=== PATIENT | female | born 1995 | race African-American/Black ===

== ENCOUNTER 2020-07-21 08:16 | Emergency (ER) | payer OTHER, SELFPAY ==
--- NOTE | ~2020-07-21 | US_ITS ---
US OB >= 14 weeks Fetus DATE: 07/21/2020 09:46 INDICATION: Vaginal bleeding TECHNIQUE: Real-time imaging via transabdominal approach, Doppler analysis COMPARISON: None FINDINGS: Live [place] intrauterine gestation, fetus in longitudinal lie, vertex presentation. heart rate 152 bpm. Biparietal diameter 4.12 cm, consistent with 18 weeks 3 days Head circumference 14.80 cm, consistent with 17 weeks 6 days Abdominal ileus 12.53 cm; 18 weeks 1 day Femur length 2.78 cm; 18 weeks 4 days Composite age by Hadlock parameters 18 weeks 2 days +/- 1 week 2 days, with EVELYN of 12/20/2020, compare d to 12/26/2020 by LMP. Estimated weight is 232.4 +/- 34.9 g Head circumference/abdominal circumference 1.18, within normal range of 1.08, 101.27 Anterior placenta. No retroplacental hemorrhage is noted. Subjectively normal amount of amniotic fluid. IMPRESSION: No significant abnormality noted Estimated gestational age: 18 weeks 2 days +/- 1 week 2 days; EVELYN: 12/20/2020 Reviewed, dictated and finalized at [facility]. Reviewed, dictated and finalized at [facility].
[2020-07-21 08:41] VITALS: BP 126/81; PULSE 84; RESP 18; TEMP 36.1; O2SAT 100
--- NOTE | 2020-07-21 08:55 | ED.MALEGU ---
HPI - Male Genitourinary General Chief complaint: Vaginal Bleeding Stated complaint: vag bleed/17 weeks Time Seen by Provider: 07/21/20 08:54 History of Present Illness HPI Narrative: healthy 25 year old female at 17 weeks gestation presents to the ED for vaginal bleeding. She passed a few large clots and dark blood this morning. The bleeding has since nearly stopped, mild spotting. She reports that she has not felt the baby move very much throughout this . She was seen by her OB 2 weeks ago for spotting and told that she had subchorionic hemorrhage. No pain, vaginal discharge, dysuria. Related Data Allergies Allergy/AdvReac Type Severity Reaction Status Date / Time SEAFOOD Allergy Intermediate RASH Uncoded 07/21/20 08:45 Review of Systems Review of Systems: All systems reviewed & are unremarkable except as noted in HPI and below Constitutional: Constitutional: Denies chills and Denies fever(s) Cardiovascular: Cardiovascular: Denies chest pain Respiratory: Respiratory: Denies dyspnea Gastrointestinal: Gastrointestinal: Denies abdominal pain, Denies diarrhea, Denies nausea and Denies vomiting Genitourinary: Genitourinary: Denies hematuria, Denies dysuria and Denies vaginal discharge Musculoskeletal: Musculoskeletal: Denies back pain Neurologic: Reports system reviewed and no additional complaints, except as documented Hematologic/Lymphatic: Hematologic/Lymphatic: Denies easy bleeding and Denies easy bruising COUNT INCLUDES THE [facility] Social History Social History (Updated 07/27/20 @ 11:41 by Irving Dowd MD) Smoking status: Never smoker Alcohol intake: never Substance use: never Gender identity (if verbalized by the patient): Female Sexual Orientation (if Verbalized by the Patient): Straight or Heterosexual Exam Const: General: healthy appearing, no acute distress and alert Orientation/consciousness: patient oriented x3 HENMT: Head: normal to inspection Resp: Effort & Inspection: normal respiratory effort Auscultation: clear to auscultation bilaterally, no rales, no rhonchi and no wheezes Cardio: Jugular venous distension: no JVD Rate: regular rate Rhythm: regular rhythm Heart sounds: no murmurs GI: GI Palp: No Tenderness to palpation present (GI) Other: Gravid Skin: General skin exam: normal color Neuro: General: patient oriented x3 and moves all extremities Speech: normal speech Gait exam (Neuro): Normal gait present Extrem: General: no edema Psych: Appearance: well kempt Affect: normal affect Course Vital Signs Vital signs: Vital Signs Temperature 36.1 C L 07/21/20 08:41 Pulse Rate 84 07/21/20 08:41 Respiratory Rate 18 07/21/20 08:41 Blood Pressure 126/81 07/21/20 08:41 Pulse Oximetry 100 07/21/20 08:41 Temperature 36.1 C L 07/21/20 08:41 Pulse Rate 84 07/21/20 08:41 Respiratory Rate 18 07/21/20 08:41 Blood Pressure 126/81 07/21/20 08:41 Pulse Oximetry 100 07/21/20 08:41 MDM - Male Genitourinary MDM Narrative Medical decision making narrative: Normal US. Most likely passed the clot previously seen on US, especially given the description of very dark, not bright red blood. Patient discussed with OB. She can followup later this week. Medical Records Attestation: I reviewed the patient's medical records. Lab Data Attestation: I reviewed the patient's lab results. Result diagrams: 07/21/20 09:03 Labs: Lab Results 07/21/20 07/21/20 07/21/20 Range/Units 09:03 09:03 09:03 WBC 6.9 (4.5-10.0) K/mm3 RBC 3.97 L (4.2-5.4) M/mm3 Hgb 10.5 L (12.0-15.0) g/dL Hct 31.8 L (37.0-47.0) % MCV 80.1 (80-100) fl MCH 26.4 (26-34) pg MCHC 33.0 (32-36) g/dl RDW 14.8 H (11.5-14.5) % Plt Count 281 (150-375) k/mm3 MPV 10.3 (7.4-10.4) fl Immature Gran % (Auto) 0.4 (0-0.5) % Neut % (Auto) 67.6 (45.5-73.1) % Lymph % (Auto) 23.2 (18.3-44.2) % [place] % (Auto) 6.8
[2020-07-21 09:12] LABS: Basophils Percent Auto 0.1 % (0.2-1.2); Eosinophils Absolute Auto 0.1 K/mm3 (0-0.3); Eosinophils Percent Auto 1.9 % (0-4.4); Hematocrit 31.8 % (37.0-47.0); Hemoglobin 10.5 g/dL (12.0-15.0); Immature Granulocyte Absolute 0.03 K/mm3 (0.00-0.031); Immature Granulocyte Percent A 0.4 % (0-0.5); Lymphocytes Percent Auto 23.2 % (18.3-44.2); Mean Corpuscular Hemoglobin 26.4 pg (26-34); Mean Corpuscular Volume 80.1 fl (80-100); Mean Platelet Volume 10.3 fl (7.4-10.4); Monocytes Absolute Auto 0.5 K/mm3 (0.1-0.6); Monocytes Percent Auto 6.8 % (2.6-8.5); Neutrophils Absolute Auto 4.7 K/mm3 (1.3-6.7); Neutrophils Percent Auto 67.6 % (45.5-73.1); Platelet Count Result 281 k/mm3 (150-375); Red Blood Count 3.97 M/mm3 (4.2-5.4); Red Cell Distribution Width 14.8 % (11.5-14.5); White Blood Count 6.9 K/mm3 (4.5-10.0)
== END 2020-07-21 10:59 | disposition home or self-care (01) ==
PROVIDERS: Emergency Provider Emergency Medicine
DX: O20.9 Hemorrhage in early pregnancy, unspecified (principal); Z3A.18 18 weeks gestation of pregnancy
CPT/HCPCS: 36415; 76805; 84702; 85025; 85461; 99284

== ENCOUNTER 2020-09-05 22:31 | Observation (INO) | payer OTHER, SELFPAY ==
[2020-09-05 22:46] VITALS: BP 125/81; PULSE 72
[2020-09-05 23:18] VITALS: BMI 35.0
--- NOTE | 2020-09-05 23:18 | OBADM ---
This patient, Scott Henderson, admitted to the OB room OB Post 117 for observation. Patient/family oriented to hospital policies and general routines including ID bracelet, bed and alarms, visiting hours, pain management, procedures, bathroom and other care routines, personal items, smoking policy, room service/diet, and visiting hours. Patient/Family are encouraged to report perceived risks to care and to ask questions if they do not understand what they are told or what they should do.
[2020-09-05 23:42] VITALS: TEMP 36.7
--- NOTE | 2020-09-24 11:03 | PM.OBTRLD ---
OB - Triage/Final Diagnosis Visit Information Comments/Additional reasons for admission: I have assessed the risk for this patient, Scott Henderson, and determined that she would benefit from observation care. Final Diagnosis (1) Decreased movement: Code(s): O36.8190 - Decreased movements, unspecified trimester, not applicable or unspecified Status: Acute
== END 2020-09-06 00:01 | disposition home or self-care (01) ==
PROVIDERS: Admitting Provider Obstetrics & Gynecology; Visit Provider Obstetrics & Gynecology
DX: O36.8120 Decreased fetal movements, second trimester, not applicable or unspecified (principal); Z3A.24 24 weeks gestation of pregnancy
CPT/HCPCS: G0378; G0379

== ENCOUNTER 2020-10-27 16:22 | Outpatient (CLI) | payer OTHER, SELFPAY ==
--- NOTE | ~2020-10-27 | US_ITS ---
EXAMINATION: US OB follow up DATE: 10/27/2020 17:07 INDICATION: Routine care TECHNIQUE: Real-time ultrasound of the pelvis was performed. The interpreting radiologist was not pre sent for the study. COMPARISON: None. FINDINGS: There is a single living fetus in vertex presentation. The placenta is anterior. heart rate is 131 beats per minute (bpm). The amniotic fluid index is 8.2 cm, which is between 2 and 3 standard d eviations below the mean (2.5%-5%-95%: 7.9-8.8-23.8 cm at 31 weeks estimated gestational age). The following biometric data were obtained: BPD: 8.2 cm -> 32 weeks 6 days Head circumference: 30.8 cm -> 34 weeks 3 days Abdominal circumference: 28.4 cm -> 32 weeks 3 days Femur length: 6.6 cm -> 34 weeks 0 days These measurements are concordant. Head circumference to abdominal circumference ratio: 1.08 (normal range 0.95-1.11). Estimated weight: 2127 g (+/-) 319 g or 4 lbs. 11 oz. (+/-) 11 oz. IMPRESSION: 1. Single living fetus in vertex presentation with heart rate of 131 bpm. 2. Oligohydramnios with amniotic fluid index of 8.2 cm which is between 2 and 3 standard deviations b elow the mean. 3. Estimated weight is 89th percentile by Hadlock criteria when 12/26/2020 is used as the estima mario date of delivery (EVELYN). Please correlate with clinical information or earlier ultrasounds for mos t accurate EVELYN. Reviewed, dictated and finalized at location [facility]. IMPRESSION: 1. Single living fetus in vertex presentation with heart rate of 131 bpm. 2. Oligohydramnios with amniotic fluid index of 8.2 cm which is between 2 and 3 standard deviations below the mean. 3. Estimated weight is 89th percentile by Hadlock criteria when 12/26/2020 is used as the estimated date of delivery (EVELYN). Please correlate with clinica l information or earlier ultrasounds for most accurate EVELYN.
== END 2020-10-27 16:23 | disposition home or self-care (01) ==
LOC: ANHIMG 16:25
PROVIDERS: Visit Provider Physician Assistant
DX: Z34.90 Encounter for supervision of normal pregnancy, unspecified, unspecified trimester (principal); Z3A.00 Weeks of gestation of pregnancy not specified
CPT/HCPCS: 76816

== ENCOUNTER 2020-12-04 22:53 | Observation (INO) | payer OTHER, SELFPAY ==
[2020-12-04] VITALS (11 sets, daily range): BP systolic 135–136; BP diastolic 84–88; PULSE 111–126; TEMP 37.7; O2SAT 98–100
[2020-12-05] VITALS (27 sets, daily range): BP systolic 120–143; BP diastolic 67–97; PULSE 107–129; TEMP 37.7–38.2; O2SAT 96–100; BMI 36.6
[2020-12-05 00:05] LABS: Add Urine Microscopic? YES; Appearance Urine Cloudy (Clear); Bacteria Urine Trace /hpf; Bilirubin Urine Negative (Negative); Blood Urine 1+ (Negative); Color Urine Yellow (Yellow); Glucose Urine UA Negative (Negative); Ketones Urine 2+ mg/dL (Negative); Leukocyte Esterase Ur 2+ LEU/UL (Negative); Mucus Urine Rare /lpf; Nitrate Urine Negative (Negative); Protein Urine 1+ mg/dL (Negative); RBC Urine 21-50 /hpf (0-2); Specific Grav Ur 1.017 (1.001-1.035); Squamous Epithelial Cell Urine Many /hpf (Few); WBC Urine >75 /hpf
--- NOTE | 2020-12-05 00:39 | OBADM ---
This patient, Scott Henderson, admitted to the OB room Labor/Delivery/Recovery 106 for observation. Patient/family oriented to hospital policies and general routines including ID bracelet, bed and alarms, visiting hours, pain management, procedures, bathroom and other care routines, personal items, smoking policy, room service/diet, and visiting hours. Patient/Family are encouraged to report perceived risks to care and to ask questions if they do not understand what they are told or what they should do.
[2020-12-05] MEDS: ceFAZolin 2 GM/D5W 50 ML 2 GM/50 ML BAG IVPB (00:47)
[2020-12-05] MEDS: LACTATED RINGERS 1,000 ML 999 ML IV CONT (00:48)
--- NOTE | 2020-12-05 04:17 | PC.NURSE ---
SEE OBIX FOR ADDITIONAL DOCUMENTATION
--- NOTE | 2020-12-20 17:33 | PM.OBTRLD ---
OB - Triage/Final Diagnosis Visit Information Comments/Additional reasons for admission: I have assessed the risk for this patient, Scott Henderson, and determined that she would benefit from observation care. Evaluation Laboratory results: Laboratory Tests 12/04/20 23:32 Urine Color Yellow Urine Appearance Cloudy H Urine pH 6.0 Ur Specific [place] 1.017 Urine Protein 1+ H Urine Glucose (UA) Negative Urine Ketones 2+ H Ur Blood (Man) 1+ H Urine Nitrate Negative Urine Bilirubin Negative Urine Urobilinogen 2.0 H Leukocyte Esterase Rfl 2+ H Urine RBC 21-50 H Urine WBC >75 H Ur Squamous Epith Cells Many H Urine Bacteria Trace Urine Mucus Rare Final Diagnosis (1) False labor: Code(s): O47.9 - False labor, unspecified Status: Acute
== END 2020-12-05 04:05 | disposition home or self-care (01) ==
PROVIDERS: Admitting Provider Obstetrics & Gynecology; Visit Provider Obstetrics & Gynecology
DX: O47.9 False labor, unspecified (principal); Z3A.00 Weeks of gestation of pregnancy not specified
CPT/HCPCS: 81001; 84112; 87086; 87088; 96374; G0378; G0379; J0690; J7120

== ENCOUNTER 2020-12-19 07:05 | Inpatient (IN) | payer OTHER, SELFPAY ==
[2020-12-19] VITALS (14 sets, daily range): BP systolic 112–143; BP diastolic 67–105; PULSE 57–98; RESP 16–18; TEMP 36.6–36.8; O2SAT 99; BMI 34.5
[2020-12-19] MEDS: LACTATED RINGERS 1,000 ML 125 ML IV CONT (07:53)
[2020-12-19] MEDS: AMPICILLIN 2 GM/NS 100 ML 2 GM/100 ML BAG IVPB (07:54)
[2020-12-19 07:57] LABS: Basophils Percent Auto 0.3 % (0.2-1.2); Eosinophils Percent Auto 0.3 % (0-4.4); Hematocrit 36.1 % (37.0-47.0); Hemoglobin 11.3 g/dL (12.0-15.0); Immature Granulocyte Absolute 0.03 K/mm3 (0.00-0.031); Immature Granulocyte Percent A 0.5 % (0-0.5); Lymphocytes Absolute Auto 1.64 K/mm3 (0.9-3.2); Lymphocytes Percent Auto 25.5 % (18.3-44.2); Mean Corpuscular HGB Conc 31.3 g/dl (32-36); Mean Corpuscular Hemoglobin 24.6 pg (26-34); Mean Corpuscular Volume 78.6 fl (80-100); Mean Platelet Volume 9.8 fl (7.4-10.4); Monocytes Absolute Auto 0.5 K/mm3 (0.1-0.6); Monocytes Percent Auto 7.8 % (2.6-8.5); Neutrophils Absolute Auto 4.2 K/mm3 (1.3-6.7); Neutrophils Percent Auto 65.6 % (45.5-73.1); Platelet Count Result 389 k/mm3 (150-375); Red Blood Count 4.59 M/mm3 (4.2-5.4); Red Cell Distribution Width 15.4 % (11.5-14.5); White Blood Count 6.4 K/mm3 (4.5-10.0)
--- NOTE | 2020-12-19 08:02 | LDADM ---
This patient, Scott Henderson, was admitted to Labor/Delivery/Recovery 106 on 12/19/20 at 07:05. Plans for labor, pain management and were discussed with patient. Patient/family oriented to hospital policies and general routines including ID bracelet, bed and alarms, visiting hours, pain management, procedures, bathroom and other care routines, personal items, smoking policy, room service/diet and guest tray routines, infant security routines, and visiting hours. Patient/Family are encouraged to report perceived risks to care and to ask questions if they do not understand what they are told or what they should do. See OBIX for further documentation.
[2020-12-19] MEDS: fentaNYL CITRATE INJ (*CRX) 100 MCG/2 ML VIAL 50 MCG IV PUSH (08:12)
[2020-12-19] MEDS: ONDANSETRON INJ 4 MG/2 ML VIAL IV PUSH (09:05)
[2020-12-19] MEDS: OXYTOCIN 30 UNITS/NS 500 ML 30 UNITS/500 ML BAG 125 UNITS IV CONT ×2 (09:07→10:54)
--- NOTE | 2020-12-19 10:22 | WPDHPUPDATE1 ---
History and Physical Update Update Date/Time: 12/19/20 10:22 History and Physical has been reviewed, including an updated exam of the patient. There are NO changes in the patient's condition. Risks, benefits, and alternatives have been discussed and questions answered. Patient agrees to proceed with procedure.
--- NOTE | 2020-12-19 10:22 | WPDOBADMIT ---
Obstetrics - Admit Note Admission Note: record reviewed. No pertinent additions to the history and/or any subsequent changes in the physical findings that are not consistent with the expected course of the were found. Additions to the history and/or subsequent changes in the physical findings follow. None.
--- NOTE | 2020-12-19 10:22 | PM.OBPRVD ---
OB - Delivery Note Procedure Route of delivery: Episiotomy description: None Laceration Description: None Specimen: Yes Quantitative Blood Loss (ml): 200 Anesthesia type: None Disposition: floor Narrative: Prepped and draped in usual manner for this procedure. Maternal expulsive efforts readily delivered vertex and the rest of baby without difficulty. Cord was clamped and cut placenta delivered spontaneously. Uterus was well contracted in the cervix you vagina and vulva were inspected with no lacerations. This point the procedure was considered terminated with immediate postoperative condition of mother and baby both excellent. Baby Weeks of gestation at delivery: 39 Infant gender: Female Weight (pounds): 7 Weight (ounces): 15 score one minute: 8 score five minutes: 9
[2020-12-19 10:57] LABS: Amphetamine Screen Urine Negative (Negative); Barbiturate Screen Urine Negative (Negative); Benzodiazepines Screen Urine Negative (Negative); Cannabinoid Screen Urine Positive (Negative); Cocaine Screen Urine Negative (Negative); Methadone Screen Urine Negative (Negative); Opiate Screen Urine Negative (Negative); Phencyclidine Screen Urine Negative (Negative)
[2020-12-19] MEDS: IBUPROFEN 600 MG TABLET PO ×2 (11:04→22:15)
[2020-12-19] MEDS: WITCH HAZEL 40 PADS 1 PAD TOPICAL (11:05)
[2020-12-19] MEDS: BENZOCAINE 20% AER SPR (*SP) 56 GM CAN 1 SPRAY TOPICAL (11:05)
[2020-12-19 15:08] LABS: Rapid Plasma Reagin Non-Reactive (NonReactive)
--- NOTE | 2020-12-19 18:03 | OBPPTRN ---
1230 Patient transferred to post room 290 # via (wheelchair ). Support person present. Oriented to unit, room, information board, rooming in, admission packet and security measures. Patient verbalizes understanding.
[2020-12-20] VITALS: BP 105/71; PULSE 66; RESP 18; TEMP 37.1
[2020-12-20] MEDS: IBUPROFEN 600 MG TABLET PO ×2 (03:33→17:41)
[2020-12-20] MEDS: ACETAMINOPHEN 325 MG TABLET 650 MG PO (03:34)
[2020-12-20 04:51] VITALS: BP 139/89; PULSE 74; RESP 18; TEMP 36.5
[2020-12-20 04:53] LABS: Hematocrit 25.8 % (37.0-47.0); Hemoglobin 8.3 g/dL (12.0-15.0)
[2020-12-20 08:15] VITALS: BP 122/85; PULSE 65; RESP 16; TEMP 36.5; O2SAT 100
[2020-12-20] MEDS: POLYSACCHARIDE IRON COMPLEX 150 MG CAPSULE PO ×2 (08:15→17:41)
[2020-12-20] MEDS: DOCUSATE SODIUM 100 MG CAPSULE PO ×2 (08:15→17:41)
[2020-12-20 23:17] VITALS: BP 124/71; PULSE 67; RESP 16; TEMP 36.4; O2SAT 100
--- NOTE | 2020-12-21 02:07 | PC.NURSE ---
12/20/2020 at 2315 I discussed with mother her HSV status. Mother states she had a break out approximately a year ago and that she has a prescription at home. I discussed with mother the importance of excellent handwashing and if she notices a break out the importance of getting and/or taking the prescription. I also discussed the chance that she can spread the virus to baby. I also discussed the way that the virus will manifest itself in baby could be any of the following: poor feeding, hyper or hypothermia, lethargy, and seizures. If mother notices any of these symptoms she should seek medical care for baby at once and to mention to the physician caring for baby that she has a history of HSV. Mother states understanding.
[2020-12-21] MEDS: ACETAMINOPHEN 325 MG TABLET 650 MG PO (03:23)
[2020-12-21] MEDS: IBUPROFEN 600 MG TABLET PO ×2 (03:24→11:34)
[2020-12-21 08:15] VITALS: BP 116/81; PULSE 62; RESP 18; TEMP 37.1; O2SAT 98
[2020-12-21 11:00] VITALS: PULSE 62; RESP 18; O2SAT 98
[2020-12-21] MEDS: POLYSACCHARIDE IRON COMPLEX 150 MG CAPSULE PO (11:33)
[2020-12-21] MEDS: MULTIVIT/MIN/PREN/FOL AC/IRON TABLET 1 TAB PO (11:33)
[2020-12-21] MEDS: DOCUSATE SODIUM 100 MG CAPSULE PO (11:33)
--- NOTE | 2020-12-21 16:11 | PM.OBDSVD ---
DS: Admitting Diagnosis Discharge Date 12/21/2020 Admitting Diagnosis Term spontaneous onset of labor DS: Discharge Diagnosis Discharge Diagnosis (1) Term delivered: Code(s): O80 - Encounter for full-term uncomplicated delivery Status: Acute OB - DS: Summary Hospital Course Time spent discussing smoking cessation with patient: 3 to 10 minutes OB Procedures : Ultrasound OB Procedures Intrapartum: Spontaneous Vag Delivery OB Procedures: : None Peripartum Data Delivery Method: Natural Vaginal Laceration Description: None Episiotomy description: None complications: none Bryson 1: Gender: Female Disposition of : home Status at Discharge Cognitive/behavioral status at discharge: normal Functional status at discharge: independent ambulation Overall status at discharge: patient is back to baseline Time Spent with Patient Time attestation: Total time spent providing and/or coordinating discharge services: Time spent: Less than 30 minutes Exam Const: General: comfortable and no acute distress Orientation/consciousness: patient oriented x3 Limitations: no limitations Chest: Breast/axilla inspection: normal inspection of the breasts Resp: Effort & Inspection: normal respiratory effort Cardio: Rate: regular rate GI: GI Palp: Yes Soft to palpation : General: Yes bladder normal to inspection Psych: Appearance: grossly normal DS: Data Data Completed and Pending Pending studies at discharge: Pending at discharge 12/19/20 10:18 Surgical [PTH] Routine Discharge Plan Discharge Attending physician on discharge: Suraj Rachel Discharging Clinician: Suraj Rachel Anticipated Discharge Date/Time: 12/21/20 16:14 Patient Disposition: Home, Self-Care Activity: may shower and pelvic rest Diet: as tolerated Discharge Instructions: Education: Mom and Baby Guide Given to: Mother Follow-Up: Call your delivering provider's office for an appointment to be seen in: 3 weeks Mom and baby should come to the [facility] for the follow-up appointment. Appointment Date/Time: Tuesday, December 22, 2020 at 9:00 am What to expect at your follow-up visit: Blood Pressure Check Physical Assessment Call [phone] if you are unable to keep your appointment time. BREAST CARE: * Wear a snug supportive bra. * For engorgement discomfort: Bottle Feeding: * May apply ice packs EPISIOTOMY/PERINEAL CARE: * Until bleeding stops, use your beulah bottle after urinating * Change your pad frequently throughout the day * You may take sitz baths several times a day (fill your bathtub with warm water and soak for 20 minutes.) Do NOT bathe in the water * No tub baths until seen by your physician - You may shower ACTIVITY: * Rest as much as possible. * Do not exercise or lift anything heavier than your baby (such as laundry or other children.) * Avoid stairs or driving as much as possible. * Do not put anything into the vagina. No douching, tampons, or sexual activity until seen by physician. NOTIFY PHYSICIAN IF YOU HAVE ANY QUESTIONS OR IF ANY OF THE FOLLOWING SYMPTOMS OCCUR: * If your vaginal area becomes red, swollen, or more painful than what you have experienced in the hospital. * If your vaginal bleeding becomes foul smelling. * If your vaginal bleeding becomes more heavy than a period or if your bleeding changes from pink to bright red. However, you may pass an occasional walnut-sized clot once or twice for the first week . * If you experience a sharp, shooting pain in your calves. * If you discover a hard, reddened area on your breast or if you experience flu-like symptoms. DIET: * Eat regular, well-balanced meals. * Drink plenty of fluids daily. Patient Instructions: Antibiotic Form, Vaginal Delivery (DC) Stand Alone Forms: General Discharge Information
[2020-12-22 09:10] VITALS: BP 149/98; PULSE 73; RESP 20; TEMP 37.2; O2SAT 100
== END 2020-12-21 16:08 | disposition home or self-care (01) | DRG 560 ==
LOC: ANHLDR 09:30 → ANHOB2 12-20 12:29 → ANHLDR 12-22 11:25
PROVIDERS: Obstetrics & Gynecology; Admitting Provider Obstetrics & Gynecology; Visit Provider Obstetrics & Gynecology
DX: O41.03X0 Oligohydramnios, third trimester, not applicable or unspecified (principal); Z37.0 Single live birth; Z3A.39 39 weeks gestation of pregnancy; O99.824 Streptococcus B carrier state complicating childbirth; O36.63X0 Maternal care for excessive fetal growth, third trimester, not applicable or unspecified
CPT/HCPCS: 36415; 80307; 85014; 85018; 85025; 86592; 86850; 86900; 86901; 88307; 88313; A9270; J0290; J2405; J2590; J3010; J7120

== ENCOUNTER 2023-09-30 14:50 | Emergency (ER) | payer OTHER, SELFPAY ==
[2023-09-30 14:59] VITALS: BP 160/106; PULSE 60; RESP 16; TEMP 36.7; O2SAT 100
--- NOTE | 2023-09-30 16:29 | PC.NURSE ---
No answer when called.
== END 2023-09-30 16:40 | disposition left against medical advice (07) ==
LOC: ANHED 16:39
DX: R03.0 Elevated blood-pressure reading, without diagnosis of hypertension (principal)
CPT/HCPCS: 99199

== ENCOUNTER 2023-10-29 13:06 | Outpatient (CLI) | payer OTHER, SELFPAY ==
--- NOTE | ~2023-10-29 | MMUS_ITS ---
EXAMINATION: US breast BI complete, MM diagnostic [place] BI w debra HISTORY: Left nipple discharge TECHNIQUE: Additional 3-D tomosynthesis images of the breasts were performed and synthetic 2-D images were generated. CAD analysis was submitted and interpreted. High resolution complete bilateral breas t ultrasound was performed. COMPARISON: None BREAST PARENCHYMAL COMPOSITION: Not dense: There are scattered areas of fibroglandular density. FINDINGS: MAMMOGRAPHIC FINDINGS: The breasts are symmetric. There are no suspicious masses, calcifications or architectural distortion . ULTRASOUND: Complete bilateral US of all 4 quadrants of the breasts and retroareolar region was reviewed. There i s asymmetry of the left nipple with involvement of the areola. No discrete breast mass identified. IMPRESSION: 1. Asymmetric appearance to the left nipple with possible areolar mass. No mammographic correlate. 2. Recommend clinical correlation for possible left areolar mass. Consider follow-up ultrasound in 6 months following appropriate treatment. BI-RADS CATEGORY 3-PROBABLY BENIGN FINDING Reviewed, dictated and finalized at [facility]. IMPRESSION: 1. Asymmetric appearance to the left nipple with possible areolar mass. No mamm ographic correlate. 2. Recommend clinical correlation for possible left areolar mass. Consider foll ow-up ultrasound in 6 months following appropriate treatment. BI-RADS CATEGORY 3-PROBABLY BENIGN FINDING
== END 2023-10-29 13:07 | disposition home or self-care (01) ==
PROVIDERS: Visit Provider Nurse Practitioner
DX: N64.4 Mastodynia (principal); R92.8 Other abnormal and inconclusive findings on diagnostic imaging of breast
CPT/HCPCS: 76641; 77062; 77066; G0279

== ENCOUNTER 2023-12-29 14:18 | Outpatient (CLI) | payer OTHER, SELFPAY ==
--- NOTE | ~2023-12-29 | MR_ITS ---
MR breast BI wo/w con 12/30/2023 07:59 CDT INDICATION: Left nipple discharge TECHNIQUE: MRI of the breasts perform using standard protocol pre-and post IV contrast with the follo wing sequences: Axial T2 STIR, axial T1, axial vibrant T1 with fat suppression precontrast and multip hasic postcontrast. COMPARISON: Mammogram and ultrasound dated 10/29/2023 FINDINGS: There are no abnormalities on the precontrast sequences. There is minimal background parenc hymal enhancement. No enhancing lesions following contrast administration. No areas of enhancement meeting threshold criteria on CAD analysis. No evidence of signal abnormalities in the axillary or i nternal mammary node distributions. LEFT BREAST: No signal abnormalities on precontrast sequences. There is minimal background parenchym al enhancement. No enhancing lesions following contrast administration. There is nipple inversion w ith left nipple being slightly larger than the right comparatively with increased enhancement. The le ft nipple has a heterogeneous appearance post enhancement. No areas of enhancement meeting threshold criteria on CAD analysis. There is mildly enlarged left axillary lymph node measuring 1.6 x 1.5 x 1.1 cm with rapid washout enhancement and cortical effacement. Cortex measures 7 mm. IMPRESSION: 1: Right breast: Negative. No evidence of malignancy. BI-RADS category 1. Recommend annual mammo graphy follow-up. 2: Left breast: Asymmetric enlargement of the left nipple which is inverted with heterogeneous enhan cement. Cannot exclude underlying mass. Recommend clinical evaluation. Consider surgical biopsy as cl inically indicated. Left axillary lymphadenopathy. Recommend axillary lymph node biopsy. BI-RADS Carole patrice 4. BI-RADS CATEGORY 4-SUSPICIOUS ABNORMALITY Reviewed, dictated and finalized at location [facility]. IMPRESSION: 1: Right breast: Negative. No evidence of malignancy. BI-RADS category 1. Recommend annual mammography follow-up. 2: Left breast: Asymmetric enlargement of the left nipple which is inverted wi th heterogeneous enhancement. Cannot exclude underlying mass. Recommend clinica l evaluation. Consider surgical biopsy as clinically indicated. Left axillary l ymphadenopathy. Recommend axillary lymph node biopsy. BI-RADS Category 4. BI-RADS CATEGORY 4-SUSPICIOUS ABNORMALITY
== END 2023-12-29 14:19 | disposition home or self-care (01) ==
PROVIDERS: Visit Provider Surgery
DX: N64.52 Nipple discharge (principal); R59.0 Localized enlarged lymph nodes; R92.8 Other abnormal and inconclusive findings on diagnostic imaging of breast
CPT/HCPCS: 77049; A9577; C8908

== ENCOUNTER 2024-01-22 07:00 | Outpatient (NON) | payer OTHER, SELFPAY | END 2024-01-22 07:01 | disposition home or self-care (01) | LOC: ANHLAB 01-23 07:41 | PROVIDERS: Visit Provider Surgery | DX: R92.8 Other abnormal and inconclusive findings on diagnostic imaging of breast (principal); R59.0 Localized enlarged lymph nodes; N64.52 Nipple discharge | CPT/HCPCS: 88305 ==

== ENCOUNTER 2024-04-28 16:22 | Outpatient (CLI) | payer OTHER, SELFPAY ==
--- NOTE | ~2024-04-28 | US_ITS ---
US axilla LT 04/28/2024 17:01 Indication: Left axillary fullness Procedure: High-resolution ultrasound of the left axilla Comparison: MRI dated 12/29/2023 Findings: Normal-appearing lymph nodes with fatty hilum and no cortical thickening in the left axilla , largest measuring 1.8 cm maximum dimension. Impression: 1: Normal axillary lymph nodes. Reviewed, dictated and finalized at location A. DEBEADER Impression: 1: Normal axillary lymph nodes.
--- OUTSIDE RECORDS SUMMARY | 2024-04-28 16:45 | XMS_ITS | Data Portability ---
Author Organization [facility] [place] Address [address] [place] [place] [address] Assessment Encounter Date Assessment Date Assessment LastModified by Organization Details LastModified Time 09/30/2023 09/30/2023 Annual gynecological exam performed. Patient will come back in a year unless there are new symptoms. [email or web address] Not available 09/30/2023 15:05:59 Plan of Treatment Reminders Order Date Submit Date Provider Last Modified By Organization Details Last Modified Time Details Appointments None recorded. Lab drug screen, urine 2020 021 [facility], [address], [place], [address], 1 16:04:37 prolactin, serum 2022 023 [facility] (Lab), [address], [place], [address], 3 03:00:49 test, urine 2022 [address], [address], [place], [address], 3 14:30:04 Referral None recorded. Procedures None recorded. Surgeries None recorded. Imaging US, breast, unilateral, complete 2022 023 [email or web address] [facility], [address], [address] [address], [place], [address], 3 15:53:15 MAMMO, diagnostic, digital, bilateral 2023 024 [facility], [address], [place], [address], 4 17:43:34 US, breast, unilateral - bilateral breast pain, left nipple discharge 2023 024 [facility], [address], [place], [address], 5 05:01:03 Medication Orders Twirla 120 mcg-30 mcg/24 hr transdermal patch 2022 023 [id number], [address], [place], [id number], 4 15:22:02 buspirone 7.5 mg tablet 2022 024 [facility] [id number], [address], [place], [id number], 4 15:10:30 Patient TargetsNo targets recorded. Patient InstructionsNo instructions recorded. Reason for Referral None Reported. Results Created Date Observation Date Name Description Value Unit Range Abnormal Flag Note LastModifiedBy Organization Detail LastModifiedTime 08/11/19 21 08/10/2020 cultu re, urine result report SEE RESULT S BELOW Test: Cultu re: Urine Speci men Sourc e: Urine Voide d Speci men Type: Urine Speci men Date: 2020 4:01 PM Resul t Date: 2020 6:04 AM Resul t Statu s: Final resul t Abnor mal: No Resul ting Lab: [facility] [address] [facility] [address] Tel: CULTU RE ----- ----- ----- --- Cultu re resul t (>=3 organ isms prese nt) indic ates possi ble conta minat ion. Repea t cultu re if sympt oms indic ate. Not Available [facility] (Lab) [address], [place], [address], 08/12/2020 07:07:16 10/04/19 21 10/03/2020 CT/GC AND TRICH OMONA S VAGIN HERBER (RRNA ), URINE chlamydia trachomatis, PCR NEGATI VE negati ve Not Available [facility] (Lab) [address], [place], [address], 10/05/2020 02:44:27 10/04/19 21 10/03/2020 CT/GC AND TRICH OMONA S VAGIN HERBER (RRNA ), URINE neisseria gonorrhoeae, PCR NEGATI VE negati ve Not Available [facility] (Lab) [address], [place], [address], 10/05/2020 02:44:27 10/04/19 21 10/03/2020 CT/GC AND TRICH OMONA S VAGIN HERBER (RRNA ), URINE trichomonas vaginalis ribosomal RNA (rrna) NEGATI VE negati ve Not Available [facility] (Lab) [address], [place], [address], 10/05/2020 02:44:27 10/04/19 21 10/03/2020 CULTU RE: URINE result report SEE RESULT S BELOW Test: Cultu re: Urine Speci men Sourc e: Urine Voide d Speci men Type: Urine Speci men Date: 021 4:11 PM Resul t Date: 1:41 AM Resul t Statu s: Final resul t Abnor mal: No Resul ting Lab: [facility] [address] [facility] [address] Tel: [phone] CULTU RE ----- ----- ----- --- Cultu re resul t (>=3 organ isms prese nt) indic ates possi ble conta minat ion. Repea t cultu re if sympt oms indic ate. Not Available [facility] (Lab) [address], [place], [address], 10/05/2020 02:44:30 10/04/19 21 10/03/2020 drug scree n, urine Amphetamines : negati ve Not Available [facility] [address], [place], [address], 10/03/2020 16:04:11 10/04/19 21 10/03/2020 drug scree n, urine Cannabinoids : positi ve Not Available [facility] [address], [place], [address], 10/03/2020 16:04:11 10/04/19 21 10/03/2020 drug scree n, urine Opiates: negati ve Not Available [facility] [address], [place], [address], 10/03/2020 16:04:11 10/04/19 21 10/03/2020 drug scree n, urine Benzodiazepi sadie: negati ve Not Available [facility] [address], [place], [address], 10/03/2020 16:04:11 09/26/19 23 09/25/2022 PROLA CTIN prolactin, total 13.10 NG/mL 4.79-2 3.30 This assay was perfo rmed using [employer] ratio n reage nts and test kits. Value s obtai benji with other assay metho ds or kits canno t be used inter frazier eably . Not Available [facility] (Lab) [address], [place], [address], 09/26/2022 03:00:49 09/26/19 23 09/25/2022 CT/GC AND TRICH OMONA S VAGIN HERBER (RRNA ), URINE chlamydia trachomatis, PCR NEGATI VE negati ve Not Available [facility] (Lab) [address], [place], [address], 09/26/2022 14:13:49 09/26/19 23 09/25/2022 CT/GC AND TRICH OMONA S VAGIN HERBER (RRNA ), URINE neisseria gonorrhoeae, PCR NEGATI VE negati ve Not Available [facility] (Lab) [address], [place], [address], 09/26/2022 14:13:49 09/26/19 23 09/25/2022 CT/GC AND TRICH OMONA S VAGIN HERBER (RRNA ), URINE trichomonas vaginalis ribosomal RNA (rrna) NEGATI VE negati ve Not Available [facility] (Lab) [address], [place], [address], 09/26/2022 14:13:49 01/02/20 23 01/01/2023 pregn jefe test, urine HCG negati ve Not Available [place] [address], [place], [address], 01/01/2023 14:29:47 09/30/19 24 09/30/2023 IMAGE GUIDE D PAP AND HPV REGAR DLESS image guided Pap, HPV regardless of Pap result SEE RESULT S BELOW CASE REPOR T: Cytol ogy Gynec ologi mana Repor t Case: [id number] Autho deirdre g Provi polly: Camille Brush, [place] Colle cted: 09/29 1518 Order ing Locat ion: [place] [facility] Recei dangelo: 09/30 1419 First Scree n: Strut z, Oz am, CT Rescr een: Erma Rehman Speci men: Scree sumi Pap - Image d, Cervi x STATE MENT OF ADEQU ACY: Satis facto ry for evalu ation Trans forma tion zone compo nent absen t The absen ce of an endoc ervic al compo nent was confi rmed by an addit ional scree ner. ----- ----- ----- ----- ----- ----- ----- ----- ----- ----- ----- ----- ----- ----- ----- ----- ----- ---- FINAL DIAGN OSIS: Negat hortencia for Intra epith elial Yuriy tucker or Rom balderas (NIL) . Elect krishna rosario d by Erma Rehman on 024 at 2:38 PM ----- ----- ----- ----- ----- ----- ----- ----- ----- ----- ----- ----- ----- ----- ----- ----- ----- ---- HPV RESUL TS: HPV mRNA E6/E7 : No HPV mRNA Detec mario NOTE: This high risk HPV mRNA assay detec ts fourt een high- risk HPV types (16, 18, 31, 33, 35, 39, 45, 51, 52, 56, 58, 59, 66, 68) witho ut diffe renti ation . COMME NT: This speci men was revie wed by a Cytot echno logis t and/o r Patho logis t (as indic ated in this repor t) after evalu ation using the Thinp rep Imagi ng Syste m. CLINI MANA INFOR MATIO N: Menst rual Statu s: LMP (if appli cable ): Clini mana Histo ry/Pr eviou s Pap: Type of Neopl jn (if appli cable ): Signi fican t Clini mana Findi ngs: Other Histo ry: Hormo sadie (if appli cable ): PAP EDUCA ALEX L NOTE: The Pap Test is a scree sumi test with an inher ent false negat hortencia rate. Liqui d-bas ed sampl ing may decre ase, but will not elimi rudy, false negat hortencia resul ts. A negat hortencia resul t does not precl ude the prese nce and/o r devel opmen t of disea se, since the prese nce of abnor mal cells in the sampl e depen ds on the locat ion of the lesio n and sampl ing techn ique. Link nued regul ar scree sumi is the best metho d of cance r preve ntion . If repor mario cytol ogic findi ng do not corre late with physi mana and/o r histo rical findi ngs, furth er inves tigat ion is recom chen d, as clini radha mijares nted. Not Available [facility] (Lab) [address], [place], [address], 10/06/2023 15:42:37 09/30/19 24 09/30/2023 TRICH OMONA S VAGIN HERBER (RRNA ) trichomonas vaginalis ribosomal RNA (rrna) Negati ve negati ve Not Available [facility] (Lab) [address], [place], [address], 10/06/2023 15:42:38 09/30/19 24 09/30/2023 CT/GC (JG) , THINP REP VIAL chlamydia trachomatis, PCR Negati ve negati ve Not Available [facility] (Lab) [address], [place], [address], 10/06/2023 15:42:39 09/30/19 24 09/30/2023 CT/GC (JG) , THINP REP VIAL neisseria gonorrhoeae, PCR Negati ve negati ve Not Available [facility] (Lab) [address], [place], [address], 10/06/2023 15:42:39 08/30/19 21 07/31/2020 US, obste tric, follo w-up No observ ation record ed. [address] [facility] [address] [place] [address], [address], 08/30/2020 07:45:47 08/30/19 21 08/29/2020 US, obste tric, follo w-up No observ ation record ed. [address] [facility] [address] [place], [address], 08/30/2020 07:46:35 08/30/19 21 08/29/2020 US, obste tric, follo w-up No observ ation record ed. [email or web address] [facility] [address] [place], [address], 08/31/2020 10:16:22 08/31/19 21 08/29/2020 US, obste tric, follo w-up No observ ation record ed. [email or web address] [facility] [address] [place], [address], 08/30/2020 15:37:27 09/08/19 21 09/07/2020 US, obste tric, limit ed No observ ation record ed. [email or web address] [facility] [address], [place], [address], 09/07/2020 17:56:27 09/08/19 21 09/07/2020 US, obste tric, trans vagin al No observ ation record ed. [email or web address] [facility] [address], [place], [address], 09/07/2020 17:56:38 09/08/19 21 09/07/2020 US, obste tric, limit ed No observ ation record ed. ERIN [address] [facility], [place], [address], 09/08/2020 12:11:12 10/29/19 24 10/29/2023 MAMMO , diagn ostic , digit al, bilat eral No observ ation record ed. [facility] [address], [place], [address], 10/30/2023 09:00:04 10/30/19 24 10/29/2023 US, breas t, unila teral No observ ation record ed. [facility] [address], [place], [address], 11/03/2023 20:07:06 Result Notes None recorded. Problems Name Problem SNOMED Code Status Onset Date Resolution Date Notes Provider Name and Address Organization Details Recorded Time Edis rodriguez user 042556936 Active 2020 Frances Abdi null, [facility] 12:17:04 Pregnanc y [id number] Completed 202011/07/2020 Amy Bhakta hl null, [facility] 11:27:51 Alpha-fe toprotei n above referenc e range 133496558 Completed Pos AFP - Level II U/S f/u on 08/29/20 to complete anatomy - SS Luba Bhakta hl null, [facility] 11:27:47 Infectio n by Trichomo lauro [id number] Completed MARK neg- Recheck 3rd trimeste r Amy Bhakta hl null, [facility] 11:27:47 Problem Notes None recorded. Procedures Surgical History None recorded. Imaging Results Imaging Date Name Status LastModified by Organization Details LastModified Time 07/31/2020 US, obstetric, follow-up completed [address] [facility] [address], [address], 08/30/2020 07:45:47 08/29/2020 US, obstetric, follow-up completed [email or web address] [facility] [address], [address], 08/30/2020 07:46:35 08/29/2020 US, obstetric, [email or web address] [address], [address], 08/31/2020 10:16:22 08/29/2020 US, obstetric, follow-up completed [email or web address] [facility] [address] [place], [address], 08/30/2020 15:37:27 09/07/2020 US, obstetric, limited completed [email or web address] [facility] [address], [place], [address], 09/07/2020 17:56:27 09/07/2020 US, obstetric, transvaginal completed [email or web address] [facility] [address], [place], [address], 09/07/2020 17:56:38 09/07/2020 US, obstetric, limited completed [facility] [address], [place], [address], 09/08/2020 12:11:12 10/29/2023 MAMMO, diagnostic, digital, bilateral completed [address], [place], [address], 10/30/2023 09:00:04 10/29/2023 US, breast, unilateral completed [address], [place], [address], 11/03/2023 20:07:06 Procedure Notes None recorded. Medical Equipment None Reported. Allergies No known drug allergies Medications Name Sig Start Date Stop Date Status Note LastModified by Organization Details LastModified Time amoxicillin 500 mg capsule TAKE 1 CAPSULE BY MOUTH EVERY 8 HOURS 09/25 completed Not Available Not Available Not Available clindamycin HCl 300 mg capsule TAKE 1 CAPSULE BY MOUTH EVERY 6 HOURS FOR 10 DAYS 09/25 completed Not Available Not Available Not Available hydrocodone 5 mg-acetamin ophen 325 mg tablet TAKE 1 TABLET BY MOUTH EVERY 6 HOURS NEEDED 09/25 completed Not Available Not Available Not Available metronidazo le 500 mg tablet TAKE ALL 4 TABLETS BY MOUTH ONCE 1 DOSE 06/15 completed Not Available Not Available Not Available buspirone 7.5 mg tablet TAKE 1 TABLET BY MOUTH TWICE DAILY DIRECTED FOR ANXIETY OR DEPRESSIO N 09/29 completed Not Available Not Available Not Available ibuprofen 600 mg tablet TAKE 1 TABLET BY MOUTH EVERY 6 HOURS NEEDED 09/25 completed Not Available Not Available Not Available 08/09 completed Not Available Not Available Not Available butalbital- acetaminoph en-caffeine 50 mg-300 mg-40 mg capsule TAKE ONE CAPSULE BY MOUTH EVERY 4-6 HOURS NEEDED 10/03 completed Not Available Not Available Not Available Virt-PN DHA 27 mg iron-1 mg-300 mg capsule TAKE 1 CAPSULE BY MOUTH EVERY DAY 08/09 completed Not Available Not Available Not Available REMELT OPERATOR-PNV-DHA 28 mg iron-1 mg-200 mg capsule Take 1 capsule every day by oral route. 09/25 completed Not Available Not Available Not Available Junel Fe 24 1 mg-20 mcg (24)/75 mg (4) tablet 06/14 completed Not Available Not Available Not Available Twirla 120 mcg-30 mcg/24 hr transdermal patch APPLY 1 PATCH TOPICALLY TO THE SKIN EVERY WEEK FOR 21 DAYS DIRECTED FOR CONTROL 09/29 completed Not Available Not Available Not Available Vitals Date Recorded Body height Body mass index (BMI) Body weight Systolic blood pressure Diastolic blood pressure Provider Name and Address Organization Details Last Updated DateTime 09/07/2020 167.64 cm 34.2 kg/m2 06632.58 244 g 119 mm[Hg] 80 mm[Hg] Frances Abdi [facility] 14:19:16 Date Recorded Body height Body mass index (BMI) Body weight Systolic blood pressure Diastolic blood pressure Provider Name and Address Organization Details Last Updated DateTime 10/03/2020 167.64 cm 34.7 kg/m2 39688.35 955 g 126 mm[Hg] 83 mm[Hg] Sarah Rudolph [facility] 15:45:32 Date Recorded Body height Body mass index (BMI) Body weight Provider Name and Address Organization Details Last Updated DateTime 09/25/2022 167.64 cm 38.4 kg/m2 612270.98 g Violetta Brice [facility] 09/25/2022 17:03:53 Date Recorded Systolic blood pressure Diastolic blood pressure Provider Name and Address Organization Details Last Updated DateTime 09/25/2022 122 mm[Hg] 78 mm[Hg] Maggie Albrecht, [facility] [address], [place], [address], [facility] 09/27/2022 20:58:02 Date Recorded Body height Body mass index (BMI) Body weight Systolic blood pressure Diastolic blood pressure Provider Name and Address Organization Details Last Updated DateTime 01/01/2023 167.64 cm 38.6 kg/m2 362413.5 8 g 157 mm[Hg] 100 mm[Hg] Violetta Narvaez [facility] 14:05:35 Date Recorded Systolic blood pressure Diastolic blood pressure Provider Name and Address Organization Details Last Updated DateTime 01/01/2023 118 mm[Hg] 76 mm[Hg] Maggie Albrecht, [facility] [address], [place], [address], [facility] 01/01/2023 14:30:52 Date Recorded Body height Body mass index (BMI) Body weight Systolic blood pressure Diastolic blood pressure Systolic blood pressure Diastolic blood pressure Provider Name and Address Organization Details Last Updated DateTime 167.64 cm 37.8 kg/m2 168864. 61 g 172 mm[Hg] 132 mm[Hg] 168 mm[Hg] 118 mm[Hg] Yolanda Perry [facility] 4 15:34:02 Social History Question Answer Notes LastModified by Organizat ion Details LastModified Time Tobacco Smoking Status Former Smoker Laura ba [facility] 07/13/2020 16:11:48 Do You Have An Advance Directive? No Information n ot available 06/15/2020 What Is Your Level Of Alcohol Consumption? None Information not available 06/15/2020 Are You Blind Or Do You Have Difficulty Seeing? No Information n ot available 06/15/2020 What Is Your Level Of Caffeine Consumption? None Information not available 06/15/2020 How Much Tobacco Do You Chew? None Information not available 06/15/2020 In The 14 Days Before Symptom Onset, Have You Had Close Contact With A Laboratory-confirm ed COVID-19 While That Case Was Ill? No Information n ot available 06/15/2020 In The 14 Days Before Symptom Onset, Have You Had Close Contact With A Person Who Is Under Investigation For COVID-19 While That Person Was Ill? No Information not available 06/15/2020 Have You Been To An Area Known To Be High Risk For COVID-19? No Information not available 06/15/2020 Are You Deaf Or Do You Have Serious Difficulty Hearing? No Information not available 06/15/2020 Which Illicit Or Recreational Drugs Have You Used? Santosh [email or web address] Information not available 07/13/2020 What Is The Highest Grade Or Level Of School You Have Completed Or The Highest Degree You Have Received? [id number] Information not available 06/15/2020 Are There Any Guns Present In Your Home? No Information not available 06/15/2020 Do You Use Protection During Sex? Usually Information not available 06/15/2020 Do You Use Your Seat Belt Or Car Seat Routinely? Yes Information not available 06/15/2020 Do You Have Smoke And Carbon Monoxide Detectors In Your Home? Yes Information not available 06/15/2020 How Much Tobacco Do You Smoke? No Information not available 06/15/2020 Do You Feel Stressed (tense, Restless, Nervous, Or Anxious, Or Unable To Sleep At Night)? [id number] Information not available 06/15/2020 Do You Use Any Illicit Or Recreational Drugs? No Information not available 06/15/2020 Do You Use Sunscreen Routinely? No Information not available 06/15/2020 Have You Used IV Drugs? No Information not available 05/04/2020 Sex: Unknown Functional Status Question Answer Note LastModified by Organization D etails LastModified Time Are you able to walk? YESWOREST [email or web address] Information not available 06/15/2020 What is your exercise level? None [email or web address] Information not available 05/04/2020 Mental Status None recorded. Family History Relationship Description Onset Age of this Age Resolved Age Notes LastModified by Organization Details LastModified Time Father No current problems or disability [email or web address] Not available 05/04 12:17:50 Mother No current problems or disability [email or web address] Not available 05/04 12:17:50 Medical History Condition Response Other N Blood Transfusion N Dermatologic Disorders N Gestational Diabetes N Anxiety Disorder N Autoimmune disease N Arthritis N Polyps N Infertility N Acid Reflux (GERD) N Cancer N Varicosities N Stroke N Neurologic/Epilepsy N Fibromyalgia N Headaches N Kidney Disease N Heart Problems N Kidney or Bladder Problems N Eating Disorder N Art (IVF or FET) N Hepatitis/Liver Disease N Urinary Tract Infection N Asthma N Trauma/Violence N Thrombophilias N Allergies (Food, seasonal, environmental ) N Breast Cancer N Drug/Latex Allergies/Reactions N Lung Disease N Defects or Inherited Disease N Breast Problem N Hematologic disorders N Anesthesia Complications N History of STI N Deep Vein Thrombosis N Polycystic ovary syndrome N History of abnormal pap N Endometriosis N High Cholesterol N Thyroid Problems N GI Problems N Anemia N Psychiatric Illness N Ovarian Cancer N Diabetes N Pulmonary (TB, Asthma) N Eczema N Abuse/Domestic Violence N Depression/ depression N Heart Disease N Pre-Eclampsia N Hypertension Y Osteoporosis N Gynecological History Statement/Question Response Abnormal Pap N Date of Last Mammogram Flow Moderate Date of LMP 09/23/2023 On BCP's at Conception? Y Was last menstrual period normal N STIs/STDs N HPV Vaccine N Colposcopy Current Control Method Patch Are cycles usually normal Y Date of Last Colonoscopy Sexually Active? Y Menses Monthly Y Date of DEXA bone scan Age of first menstrual cycle 9 Date of Last Pap Smear Sexual Problems? N Desired Control Method Patch LMP Approximate Obstetrics History GPAL:G 4 P 4 0 0 4 Type Value Full Term 4 Living 4 Total 4 Past Encounters Encounter ID Performer Location Encounter Start Date Encounter Closed Date Diagnosis/Indication Diagnosis SNOMED-CT Code Diagnosis ICD10 Code Diagnosis Note [id number] Shwetha Smlal [facility] [address] [address] 05/04/2020 12:15:05 05/04/2020 13:22:04 test positive 329899213 Z32.01 Risk factors addressed: Tobacco Cessation, Safe Sexual Practices, environmen babar, work hazards, travel restrictio ns, seat belt use.Eat a health well balanced diet, avoid alcohol, tobacco, and street drugs. Engage in daily low impact exercise, avoid temperatur e extremes, and cat, rodent, and bird feces.Avoi d travel to areas where zika virus is a concern.Pt desires NIPT. Will await records for cf/sma because she thinks they were done with a previous . Handouts given and discussed with patient.Ch ildbirth classes recommende d.New OB sheet given. If previous , counseling .Pt verbalizes that she understand s the importance of above instructio ns.All questions were answered. Patient reminded to have annual well woman examinatio n and address [facility] . [id number] [facility] [address],[place] [address] 05/04/2020 12:15:57 05/04/2020 13:23:04 screening 518211950 Z36.87 [id number] [facility] [address] [address] 06/15/2020 14:15:30 06/15/2020 15:41:04 screening 991542103 Z36.82 [id number] Rivas Schmidt MD [facility] [address] [address] 06/15/2020 14:15:51 06/16/2020 16:16:00 Routine care 739796863 Z34.91 [id number] Shwetha Small [facility] [address] [address] 07/13/2020 16:11:37 07/13/2020 17:19:07 Routine care 728746516 Z34.[id number] [facility] [address],[place] [address] 07/13/2020 16:36:18 07/13/2020 17:19:33 Spotting per vagina in 267695164 O26.852 Z3A.16 [id number] Shwetha [facility] [address],[place] [address] 08/10/2020 15:25:20 08/10/2020 15:39:58 Routine care 303134510 Z34.92 [id number] Shwetha [facility] [address],[place] [address] 09/07/2020 14:14:24 09/07/2020 14:42:04 Routine care 100379339 Z34.92 [id number] Mame Melendrez [facility] [address],[place] [address] 09/07/2020 14:40:44 09/07/2020 15:15:39 Bleeding from female genital tract during 3558952631 [id number] O46.92 Z03.75 Z3A.24 [id number] Nicolasa Infante MD [facility] [address],[place] [address] 10/03/2020 15:39:39 10/03/2020 16:37:37 Screening procedure 10913500 Z13.9 Increased frequency of urination 661436517 R35.0 Infection by Trichomonas 19554106 A59.9 Routine an tenatal care 357598516 Z34.83 [id number] Maggie Albrecht [facility] [address],[place] [address] 09/25/2022 16:52:49 09/27/2022 21:48:01 Discharge from nipple 08572403 N64.52 Clear to milky nipple discharge manually seen Left breast.Agr eed on pursuing US & LabsWill call to schedule & update once results recieved. Time spent in visit is a total of 22 mins with at least 50% of visit consisting of counseling and review of plan of care. Milia [id number] L72.0 Milia cysts on Labia minoraBoth ered by these asthetical ly but not causing any medical issues per pt.Offer to incise and remove contentsSh e decided to monitor until upcoming WWE visit. [id number] [facility] [address] [address] 01/01/2023 14:00:13 01/02/2023 15:41:05 Contraception care management [id number] Z30.9 Discussed all control options in great detail. Pt would like to start xulane patch. She is aware of the risks and benefits. Informed her it may not be as effective for contracept ion since her weight is over 198 lbs. She does not have any medical condition that is contraindi cated with the use of estrogen containing control. Pt will place the patch on the first friday following the start of her period and then replace weekly x 2 (total of 3 patches over 3 weeks) and week 4 no patch. She is aware it is not effective for control the first month and may be less effective d/t her weight. She is also aware that she will need to check placement daily to ensure it has not come off. Encouraged use of condoms as the nuvaring does not protect against STD's. Will return in 3 months for med check. Consent was read and signed. Pt verbalized understand ing. RTO x 3mos med checkH/O given for additional home reference. 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 Understand ing verbalized .We also discussed that it sometimes takes a few trials to find what works for her body chemistry the best; so don't give up and reach out sooner if feels needs to move appt up.Encoura ged counseling as mentioned. Talked about setting boundaries .Increasin g fresh fruits/veg gies/prote ins and sunlight.N eed to consider updated TSH/[place] D levels next visit. RTO x 4-6wks med check [id number] MIKHAIL Barakat Hollister [address] [address] 09/30/2023 15:03:08 09/30/2023 16:54:57 Gynecologic examination [id number] Z01.419 WWEBC - declinedpa p updatedgc/ ct/trich testing added to pap It is strongly advised to have an annual flu shot and up can obtain at most pharmacies . If you have not had a TDap shot in the last 10 years you should obtain one as well.Discu ssed with patient & provided with informatio n regarding HPV vaccine if applicable . Encourage safe sexual practices, to use condoms and limit partners if not already in a monogamous relationsh ip.Do monthly self breast exams. BRCA testing is now available for patients with strong genetic history of female cancer. If interested contact the office.Eng age in regular exercise. Avoid tobacco and illicit drugs. This lifestyle behavior pattern will lead to less health conditions and longer life span. If BMI greater than 25 dietary consult advised. Patient received above instructio ns, and questions have been answered. If you have any questions please call or respond to this email. Patient was made aware of the patient portal and may obtain a paper copy of today's plan if desired. Pain of breast [id number] N64.4 Bilateral diagnostic mammogram with left breast u/s orderedenc ouraged pt to schedule Discharge from nipple 54 [id number] N64.52 Venereal d isease screening [id number] Z11.3 Elevated blood-pressure reading without diagnosis of hypertension [id number] R03.0 BP significan tly elevatedsh e does not have a PCPrecomme nded UC/ED visit for management nowprecaut ions discussede ncouraged to est care with PCP Health Concerns Section Related Observation LastModified by Organization Detai ls LastModified Time None Recorded Concern Status LastModified by Organization Details LastModified Time None Recorded Advance Directives Directive N: Payers Encounter Date Sequence Insurance Name Policy Number Policy Pinzon Covered Member ID Pinzon Member ID Guarantor Name 09/07/2020 1 [facility] PRIOR TO 09/28/2020 (MEDICAID REPLACEMENT - HMO) Scott Henderson [id number] Scott Henderson 10/03/2020 1 [facility] PRIOR TO 09/28/2020 (MEDICAID REPLACEMENT - HMO) Scott Henderson [id number] Scott Henderson 09/25/2022 1 [facility] ON OR AFTER 09/28/20 (MEDICAID REPLACEMENT - HMO) Scott Dislaoten [id number] Scott Santiago 01/01/2023 1 [facility] ON OR AFTER 09/28/20 (MEDICAID REPLACEMENT - HMO) Scott Dislaoten [id number] Scott Santiago 09/30/2023 1 [facility] ON OR AFTER 20 (MEDICAID REPLACEMENT - HMO) Scott Dislaoten [id number] Scott Santiago Notes Date Note Type Note Provider Name and Address Organization Details Recorded Time 09/25/2022 text/html Here today for evaluation of left breast discharge, bumps on labia and wants STD screening. Neg pain of abd/pelvis/flankNeg urinary sx'sNeg GI sx'sNeg N/V/F/C/DNeg Vag d/c, odor, irritation, itching Breast ROS: + Nipple discharge; present x 1mos Neg Skin discoloration or texture changes Neg Breast Lump/Mass Neg Family Hx of breast cancer/other cancers Neg Tenderness/pain Neg Trauma to breast Neg Underwire or ill fitting bras Neg notable assymetry of breasts Maggie Albrecht [facility]- [address], [place], [address], [facility] 09/27/2022 21:01:41 01/01/2023 text/html Here today for control consult for period regulation; interested in BC patch. Also wants to discuss anxiety/low motivation/feeling hopeless she is experiencing this past year.Lots of stress family/life.Feels might not be sleeping well.Does not want to go out as much as she used too.Neg suicidal ideations or thoughts of self harm.Not sleeping well at night-mind races but still tired.At a point where she would like to try medication to help manage these things; and is considering counseling. Maggie Albrecht [facility]- [address], [place], [address], [facility] 01/10/2023 13:33:46 09/30/2023 text/html Annual GYNReport ed bypatient.Menstrual cycle:Normal menses Urinary symptoms:No hematuria; No incontinence Vulva:No genital lesion Vagina:Normal vaginal discharge Breast:No breast pain; No breast lump; No nipple discharge Current Contraception:Condo ms Sexual complaints:No sexual complaints; No pain during intercourse; Normal libido Menopausal Symptoms:No menopausal symptoms; Normal vaginal lubrication Psychological symptoms:No depression; No anxiety; No PMDD Preventive measures:Encourage self breast examination; Encourage regular exercise; Encourage no tobacco use; Encourage regular mammograms starting age 38Notes:28yo [id number] h/o abnormal pap smears per ptlast pap 2-3 yrs agoBC - condomswas using the patch, stopped about 3 months ago bilateral breast tenderness, comes and goesleft breast nipple discharge for a few yearslast BF in rolactin done for this issue 08/2022 : 13.1, has not had breast imaging done yet has noticed increased migraines over the past few months. Does not a have PCPdenies SOB, chest pain, blurry vision, or current migraine MIKHAIL Barakat [address], [place], [address], [facility] 09/30/2023 16:51:05 OBGyn Episode Ob Episode Information Episode Created Date Number of Fetuses Patient Bloodtype Patient rh Status Prepregnancy Weight lbs Domestic Partner Domestic Partner Phone Father Name Nuclear Medicine Specialist Status 05/04/19 21 1 CLOSED Fetus Data First Name Last Name Admitted to NICU Weight (g) Sex Living Outcome Pediatric Complications Fetus ID Race Codes Race Delivery Type M Full Term 7686 Vaginal Delivery Nabeel Calculation Initial Nabeel Date Initial Exam Date Initial Exam Provider Initial Ultrasound Date Last Menstrual Period Date Ultra Sound Weeks Gestation 0 Eighteen To Twenty Week Nabeel Update Ultra Sound Date Fundal Height At Umbil Quickening Date Ultra Sound Latest Weeks Gestation Final Nabeel Confirmed By Final Nabeel Confirmed Date Final Nabeel Date Ultra Sound Latest Days Gestation 0 0 Menstrual History Last Menstrual Date Menses Monthly On Bcp Conception Prior Menses Frequency Hcg Plus Date Menarche Onset Age Delivery Information Delivery Date Delivery Type Labor Anesthesia Weeks Gestation Incision Type Labor Labor Length Hrs Delivered By Post Complications Tubal Sterilization Discharge Date Comments 5 39 [place] Discharge Information Feeding Method Contraceptive Method Maternal HG B and HCT Levels Ob Episode Information Episode Created Date Number of Fetuses Patient Bloodtype Patient rh Status Prepregnancy Weight lbs Domestic Partner Domestic Partner Phone Father Name Nuclear Medicine Specialist Status 05/04/19 21 1 CLOSED Fetus Data First Name Last Name Admitted to NICU Weight (g) Sex Living Outcome Pediatric Complications Fetus ID Race Codes Race Delivery Type M Full Term 7685 Vaginal Delivery Nabeel Calculation Initial Nabeel Date Initial Exam Date Initial Exam Provider Initial Ultrasound Date Last Menstrual Period Date Ultra Sound Weeks Gestation 0 Eighteen To Twenty Week Nabeel Update Ultra Sound Date Fundal Height At Umbil Quickening Date Ultra Sound Latest Weeks Gestation Final Nabeel Confirmed By Final Nabeel Confirmed Date Final Nabeel Date Ultra Sound Latest Days Gestation 0 0 Menstrual History Last Menstrual Date Menses Monthly On Bcp Conception Prior Menses Frequency Hcg Plus Date Menarche Onset Age Delivery Information Delivery Date Delivery Type Labor Anesthesia Weeks Gestation Incision Type Labor Labor Length Hrs Delivered By Post Complications Tubal Sterilization Discharge Date Comments 8 39 [place] Discharge Information Feeding Method Contraceptive Method Maternal HG B and HCT Levels Ob Episode Information Episode Created Date Number of Fetuses Patient Bloodtype Patient rh Status Prepregnancy Weight lbs Domestic Partner Domestic Partner Phone Father Name Nuclear Medicine Specialist Status 06/16/19 21 1 B Positive CLOSED Fetus Data First Name Last Name Admitted to NICU Weight (g) Sex Living Outcome Pediatric Complications Fetus ID Race Codes Race Delivery Type [id number] Problems Problem Notes Problem Name Start Date End Date Resolution Snomed Code Not e Infection by Trichomonas [id number] MARK neg- Rechec k 3rd trimester Alpha-fetoprotein above reference range [id number] Pos AF P - Level II U/S f/u on 08/29/20 to complete anatomy - [facility] Nabeel Calculation Initial Nabeel Date Initial Exam Date Initial Exam Provider Initial Ultrasound Date Last Menstrual Period Date Ultra Sound Weeks Gestation 12/26/2020 06/15/2020 05/04/2020 6 Eighteen To Twenty Week Nabeel Update Ultra Sound Date Fundal Height At Umbil Quickening Date Ultra Sound Latest Weeks Gestation Final Nabeel Confirmed By Final Nabeel Confirmed Date Final Nabeel Date Ultra Sound Latest Days Gestation 0 [email or web address] 06/15/2020 12/27/19 21 0 Pre- Flowsheet Flowsheet Date 06/15/2020 Brewster Score Blood Edema Fundus Height Fundus Units Glucose Ketones Leukocytes Nitrite Labor Signs Protein Cervic Dilation Cervic Effacement Cervic Station Type Weight in lbs Pre/Post Dialysis Refused Weight 204.845114184502 BP Diastolic BP Location Tested BP Systolic BP Type 77 R arm 120 sitting Fetus Heart Rate Present Fetus Movement Comments this patient is a 25-year-ol d 4 para 3003 at 12 weeks gestation who presents for initial care. She has a history of 3 vaginal births. She had 3 uncomplicated pregnancies. We will begin routine care. Flowsheet Date 07/13/2020 Brewster Score Blood Edema Fundus Height Fundus Units Glucose Ketones Leukocytes Nitrite Labor Signs Protein Cervic Dilation Cervic Effacement Cervic Station none trace Type Weight in lbs Pre/Post Dialysis Refused Weight 204.366146575829 BP Diastolic BP Location Tested BP Systolic BP Type 76 112 Fetus Heart Rate Present Fetus Movement A Yes Comments Pt c/o a small amount of blo od when she wipes. This has been going on for 4 days. A little discomfort. U/S to follow visit. AFP to be drawn today. Flowsheet Date 07/13/2020 Brewster Score Blood Edema Fundus Height Fundus Units Glucose Ketones Leukocytes Nitrite Labor Signs Protein Cervic Dilation Cervic Effacement Cervic Station Type Weight in lbs Pre/Post Dialysis Refused BP Diastolic BP Location Tested BP Systolic BP Type Fetus Heart Rate Present Fetus Movement Comments Flowsheet Date 08/10/2020 Brewster Score Blood Edema Fundus Height Fundus Units Glucose Ketones Leukocytes Nitrite Labor Signs Protein Cervic Dilation Cervic Effacement Cervic Station none 20 trace Type Weight in lbs Pre/Post Dialysis Refused Weight 205.483395839453 BP Diastolic BP Location Tested BP Systolic BP Type 74 110 Fetus Heart Rate Present A 154 Fetus Movement A Yes Comments Doing well. MFM consult and Level 2 u/s on August 29. Flowsheet Date 09/07/2020 Brewster Score Blood Edema Fundus Height Fundus Units Glucose Ketones Leukocytes Nitrite Labor Signs Protein Cervic Dilation Cervic Effacement Cervic Station none 24 trace Type Weight in lbs Pre/Post Dialysis Refused Weight 212.83315725692 BP Diastolic BP Location Tested BP Systolic BP Type 80 119 Fetus Heart Rate Present A 149 Fetus Movement A Decreased Comments ER 2 days ago for decreased movement and lost her mucous plug. No contractions but did have some spotting yesterday and today. The spotting is brown. U/S today to check placenta and cervical length. All previous births were full term. Flowsheet Date 09/07/2020 Brewster Score Blood Edema Fundus Height Fundus Units Glucose Ketones Leukocytes Nitrite Labor Signs Protein Cervic Dilation Cervic Effacement Cervic Station Type Weight in lbs Pre/Post Dialysis Refused BP Diastolic BP Location Tested BP Systolic BP Type Fetus Heart Rate Present Fetus Movement Comments Flowsheet Date 10/03/2020 Brewster Score Blood Edema Fundus Height Fundus Units Glucose Ketones Leukocytes Nitrite Labor Signs Protein Cervic Dilation Cervic Effacement Cervic Station neg trace 32 trace Type Weight in lbs Pre/Post Dialysis Refused Weight 215.450241050741 BP Diastolic BP Location Tested BP Systolic BP Type 83 126 Fetus Heart Rate Present A 130 Fetus Movement A Yes Comments Doing well. SOme pelvic pain . SOme days with decreased FM, discussed kick counts. GCT today. Discussed and encouraged Tdap. COmplains of urinary frequency but no other urinary sx. . Urine culture, UDS, urine std testing. Menstrual History Last Menstrual Date Menses Monthly On Bcp Conception Prior Menses Frequency Hcg Plus Date Menarche Onset Age Genetic Screening And Infection History Question Response Note Mental Retardation/Autism false Patient's Age Will Be 35 Years Or Older At Estim ated Date of Delivery false Thalassemia (English, Maltese, Mediterranean, Or Background): MCV < 80 false Neural Tube Defect (Meningomyelocele, Spina Bifi da, Or Anencephaly) false Congenital Heart Defect false Down Syndrome false Jorge-Sachs (eg, Jehovah'S Witness, Cajun, Romanian-Martiniquais) f alse Андрей Disease false Sickle Cell Disease Or Trait () false Hemophilia Or Other Blood Disorders false Muscular Dystrophy false Cystic Fibrosis false [place]'s Chorea false Intellectual Disability/Autism false If Yes, Was Person Tested For Fragile X? false Other Inherited Genetic Or Chromosomal Disorder false Maternal Metabolic Disorder (eg, Type 1 Diabetes , PKU) false Patient Or Baby's Father Had A Child With Defects Not Listed Above false Recurrent Loss, Or A Stillbirth false Medications (including Suppl ements, Vitamins, Herbs, OTC Drugs), Illicit/Recreational Drugs, Alcohol false If Yes, Agent(s) And Strength/Dosage false Any Other Genetic History false Live With Someone With TB Or Exposed To TB false Patient Or Partner Has History Of Genital Herpes false Rash Or Viral Illness Since Last Menstrual Perio d false History Of STD, Gonorrhea, Chlamydia, HPV, Syphi lis false Other Infection History false History of HIV false History of Hepatitis false Prior GBS-infected child false Hemoglobinopathy Or Carrier false Other Structural Defect false Recent Travel History Outside of Country false Delivery Information Delivery Date Delivery Type Labor Anesthesia Weeks Gestation Incision Type Labor Labor Length Hrs Delivered By Post Complications Tubal Sterilization Discharge Date Comments Discharge Information Feeding Method Contraceptive Method Maternal HG B and HCT Levels Ob Episode Information Episode Created Date Number of Fetuses Patient Bloodtype Patient rh Status Prepregnancy Weight lbs Domestic Partner Domestic Partner Phone Father Name Nuclear Medicine Specialist Status 05/04/19 21 1 CLOSED Fetus Data First Name Last Name Admitted to NICU Weight (g) Sex Living Outcome Pediatric Complications Fetus ID Race Codes Race Delivery Type F Full Term 7686 Vaginal Delivery Nabeel Calculation Initial Nabeel Date Initial Exam Date Initial Exam Provider Initial Ultrasound Date Last Menstrual Period Date Ultra Sound Weeks Gestation 0 Eighteen To Twenty Week Nabeel Update Ultra Sound Date Fundal Height At Umbil Quickening Date Ultra Sound Latest Weeks Gestation Final Nabeel Confirmed By Final Nabeel Confirmed Date Final Nabeel Date Ultra Sound Latest Days Gestation 0 0 Menstrual History Last Menstrual Date Menses Monthly On Bcp Conception Prior Menses Frequency Hcg Plus Date Menarche Onset Age Delivery Information Delivery Date Delivery Type Labor Anesthesia Weeks Gestation Incision Type Labor Labor Length Hrs Delivered By Post Complications Tubal Sterilization Discharge Date Comments 6 39 [place] Discharge Information Feeding Method Contraceptive Method Maternal HG B and HCT Levels Ob Episode Information Episode Created Date Number of Fetuses Patient Bloodtype Patient rh Status Prepregnancy Weight lbs Domestic Partner Domestic Partner Phone Father Name Nuclear Medicine Specialist Status 09/26/19 23 1 CLOSED Fetus Data First Name Last Name Admitted to NICU Weight (g) Sex Living Outcome Pediatric Complications Fetus ID Race Codes Race Delivery Type F Full Term Vaginal Delivery Nabeel Calculation Initial Nabeel Date Initial Exam Date Initial Exam Provider Initial Ultrasound Date Last Menstrual Period Date Ultra Sound Weeks Gestation 0 Eighteen To Twenty Week Nabeel Update Ultra Sound Date Fundal Height At Umbil Quickening Date Ultra Sound Latest Weeks Gestation Final Nabeel Confirmed By Final Nabeel Confirmed Date Final Nabeel Date Ultra Sound Latest Days Gestation 0 0 Menstrual History Last Menstrual Date Menses Monthly On Bcp Conception Prior Menses Frequency Hcg Plus Date Menarche Onset Age Delivery Information Delivery Date Delivery Type Labor Anesthesia Weeks Gestation Incision Type Labor Labor Length Hrs Delivered By Post Complications Tubal Sterilization Discharge Date Comments 1 Discharge Information Feeding Method Contraceptive Method Maternal HG B and HCT Levels
--- OUTSIDE RECORDS SUMMARY | 2024-04-28 16:46 | XMS_ITS | Clinical Summary ---
Author Organization [facility] [address] Address [address] [place] [address] Care Team Providers Care Orthotist Prosthetist Name Role Phone Unavailable Primary Care Provider Unavailabl e Source Comments [facility] [address],non-owned Affiliates and Associated Physician Practices is amultiple site organization consisting of ambulatory clinics and hospital sitesin [place], [place], [place] and [place]. This disclosure is being madepursuant to the Care Everywhere program and may not contain all information available regarding this patient. Last updated 17.[employer] [address] Allergies No known active allergies Medications * Be aware that medications may not be up to date on this document. Alwaysverify current medications with the patient. Medication Sig Dispensed Refills Start Date End Date Status Twirla 120-30 MCG/24HR PTWK APPLY 1 PATCH TOPICALLY TO THE SKIN EVERY WEEK FOR 21 DAYS DIRECTED FOR CONTROL 05/14/2023 Active busPIRone (Buspar) 7.5 MG tablet TAKE 1 TABLET BY MOUTH TWICE DAILY DIRECTED FOR ANXIETY OR DEPRESSION 01/01/2023 Active amLODIPine (Norvasc) 5 MG tablet Take 1 (one) tablet by mouth once daily 09/30/2023 Active Active Problems Problem Noted Date Diagnosed Date Abnormality of alpha-fetoprotein 07/26/2020 Overview (07/26/2020): AFP = 2.67 B+ NIPT - neg (Fe) Social History Tobacco Use Types Packs/Day Years Used Date Smoking Tobacco: Never Assessed Tobacco Cessation:Counseling Given: No Sex and Gender Information Value Date Recorded Sex Assigned at Not on file Gender Identity Not on file Sexual Orientation Not on file Last Filed Vital Signs Vital Sign Reading Time Taken Comments Blood Pressure 149/94 11/19/2023 12:38 PM CDT Pulse 61 11/19/2023 12:38 PM CDT Temperature 36.5 ??C (97.7 ??F) 11/19/2023 12:38 PM C DT Respiratory Rate - - Oxygen Saturation 99% 11/19/2023 12:38 PM CDT Inhaled Oxygen Concentration - - Weight 107 kg (236 lb) 11/19/2023 12:38 PM CDT Height 170.2 cm (5' 7 ) 11/19/2023 12:38 PM CDT Body Mass Index 36.96 11/19/2023 12:38 PM CDT Plan of Treatment Health Maintenance Due Date Last Done Comments HIV SCREENING 2008 HEPATITIS C SCREENING 05/18/2011 DTAP/TDAP/TD VACCINES (1 - Tdap) 2012 HEPATITIS B VACCINE (1 of 3 - 19+ 3-dose series) 2012 COVID-19 VACCINE ( season) 2023 INFLUENZA VACCINE (#1) 2023 DEPRESSION SCREENING 03/31/2024 PAP SMEAR 09/29/2026 09/30/2023, 07/0 05/2023, 09/30/2023, Additional history exists ZOSTER VACCINE (1 of 2) 2043 HIB VACCINE Aged Out No longer eligi ble based on patient's age to complete this topic HPV VACCINE Aged Out No longer eligi ble based on patient's age to complete this topic MENINGOCOCCAL (Group B) VACCINE Aged Out No longer eligible based on patient's age to complete this topic MENINGOCOCCAL VACCINE Aged Out No cesar salvador eligible based on patient's age to complete this topic PNEUMOCOCCAL VACCINE Aged Out No long er eligible based on patient's age to complete this topic
--- OUTSIDE RECORDS SUMMARY | 2024-04-28 16:46 | XMS_ITS | Referral Summary ---
Author Organization [facility] Address [address] [place] [address] Care Team Providers Care Physician Name Role Phone Unavailable Primary Care Provider Unavailabl e Source Comments [facility],non-owned Affiliates and Associated Physician Practices is amultiple site organization consisting of ambulatory clinics and hospital sitesin [place], [place], [place] and [place]. This disclosure is being madepursuant to the Care Everywhere program and may not contain all information available regarding this patient. Last updated 17.[facility] Allergies No known active allergies Medications * [...] 11/19/2023 12:38 PM CDT Plan of Treatment Not on file
--- OUTSIDE RECORDS SUMMARY | 2024-04-28 16:46 | XMS_ITS | Data Portability ---
[facility] Address [address] [place] [address] Assessment Encounter Date Assessment Date Assessment LastModified by Organization Details LastModified Time 12/12/2020 12/12/2020 CODEY HeathS Not available 12/12/2020 16:23:43 02/05/2021 02/05/2021 MILAGROS Aguilar [email or web address] Not available 02/05/2021 13:47:44 Plan of Treatment Reminders Order Date Submit Date Provider Last Modified By Organization Details Last Modified Time Details Appointments ANY 15 2024 01:45P Laura SPRAGUE PA-C Not available Not available Not available Lab urinaly sis, dipstic k 2020 021 [email or web address] In-Office Order, Internal Use Only DO Not Attach Compendium DO Not Attach Compendium, Do Not Delete/merge, [id number] 12/12/2020 17:18:14 Mycobac terium tubercu losis stimula mario gamma interfe paty, qual, blood 2022 023 ERIN [facility], [address], [place], [address], 04/09/2022 06:11:01 CMP, serum or plasma 2023 024 [email or web address] [facility], [address], [place], [address], 03/30/2024 08:27:47 TSH, ultra-s ensitiv e, serum 2023 [facility], [address], [place], [address], 03/30/2024 08:27:47 albumin /creati nine, mass ratio, urine 2023 [facility], [address], [place], [address], 03/30/2024 08:27:47 lipid panel, serum 2023 [facility], [address], [place], [address], 03/30/2024 08:27:48 CBC w/ auto diff 2023 [facility], [address], [place], [address], 03/30/2024 08:27:48 HbA1c (hemogl obin A1c), blood 2023 [facility], [address], [place], [address], 03/30/2024 08:27:48 TSH + free T4, serum 2023 [facility], [address], [place], [address], 03/30/2024 08:27:48 vitamin D, 25-hydr oxy, total, serum 2023 [facility], [address], [place], [address], 03/30/2024 08:27:48 HIV 1 + 2, meaning ful use set 2023 [facility], [address], [place], [address], 03/30/2024 08:27:48 Referral psychia trist referra l 2023 [facility], [address], [place], [address], 04/16/2024 11:16:48 Procedures None recorde d. Surgeries tubal ligatio n (SURG) 2020 [facility], [address], [place], [address], 02/23/2021 14:40:51 Imaging None recorde d. Medication Orders multivi tamin tablet 2020 [id number], [address], [place], [id number], 03/14/2021 16:05:13 Calcium with Vitamin D 600 mg-10 mcg (400 unit) tablet 2020 [facility] #94247, [address], [place], [id number], 03/14/2021 16:05:12 Xulane 150 mcg-35 mcg/24 hr transde rmal patch [facility] [address], [place], [id number], 02/16/2024 08:49:49 hydroxy zine HCl 25 mg tablet 2023 024 [facility] #25161, [address], [place], [id number], 02/16/2024 09:50:58 famotid ine 20 mg tablet 2023 024 [facility] #74182, [address], [place], [id number], 02/16/2024 09:50:23 hydroxy zine HCl 25 mg tablet 2024 025 [facility] #16090, [address], [place], [id number], 04/08/2024 10:27:40 amlodip ine 10 mg tablet 2024 025 [facility] #40297, [address], [place], [id number], 04/08/2024 10:27:40 losarta n 25 mg tablet 2024 025 [facility] #41335, [address], [place], [id number], 04/08/2024 10:27:38 Patient TargetsNo targets recorded. Patient Instructions Encounter Date Encounter Id Patient Instructions Last Modified By Organization Details Last Modified Time 12/12/2020 [id number] genital herpes: care instructions Not available 12/12/2020 16:40:27 02/05/2021 [id number] after : exercises [email or web address] Not available 02/05/2021 13:20:29 Care at Home With Your Baby: Care Instructions [email or web address] Not available 02/05/2021 13:20:28 tubal ligation: before your surgery mwasserman Not available 02/05/2021 13:20:28 04/05/2022 [id number] learning about tuberculosis (TB) [email or web address] Not available 04/05/2022 12:37:35 02/16/2024 [id number] learning about high blood pressure [email or web address] Not available 02/16/2024 09:50:14 04/08/2024 [id number] A healthy lifestyle: care instructions [email or web address] Not available 04/08/2024 10:27:17 learning about high blood pressure Not available 04/08/2024 10:27:17 Reason for Referral Psychiatrist Referral for Ge neralized anxiety disorder Referring Physician: Maricel Sprague, Family Medicine, Encounter Date: 02/16/2024 Results Created Date Observation Date Name Description Value Unit Range Abnormal Flag Note LastModifiedBy Organization Detail LastModifiedTime 12/13/19 21 12/12/2020 urina lysis , dipst ick Leukocytes Trace Not Available In-Offi ce Order Internal Use Only DO Not Attach Compendium DO Not Attach Compendium, Do Not Delete/merge, 12/12/2020 16:11:30 12/13/19 21 12/12/2020 urina lysis , dipst ick Nitrite negati ve Not Available In-Office Order Internal Use Only DO Not Attach Compendium DO Not Attach Compendium, Do Not Delete/merge, 12/12/2020 16:11:30 12/13/19 21 12/12/2020 urina lysis , dipst ick Urobilinogen 1 Not Available In-Of fice Order Internal Use Only DO Not Attach Compendium DO Not Attach Compendium, Do Not Delete/merge, 12/12/2020 16:11:30 12/13/19 21 12/12/2020 urina lysis , dipst ick Protein Trace Not Available In-Office Order Internal Use Only DO Not Attach Compendium DO Not Attach Compendium, Do Not Delete/merge, 12/12/2020 16:11:30 12/13/19 21 12/12/2020 urina lysis , dipst ick pH 6.5 Not Available In-Office Order Internal Use Only DO Not Attach Compendium DO Not Attach Compendium, Do Not Delete/merge, 12/12/2020 16:11:30 12/13/19 21 12/12/2020 urina lysis , dipst ick Blood Small Not Available In-Office Order Internal Use Only DO Not Attach Compendium DO Not Attach Compendium, Do Not Delete/merge, 12/12/2020 16:11:30 12/13/19 21 12/12/2020 urina lysis , dipst ick Specific [place] 1.020 Not Available In-Off ice Order Internal Use Only DO Not Attach Compendium DO Not Attach Compendium, Do Not Delete/merge, 12/12/2020 16:11:30 12/13/19 21 12/12/2020 urina lysis , dipst ick Ketone Negati ve Not Available In-Office Order Internal Use Only DO Not Attach Compendium DO Not Attach Compendium, Do Not Delete/merge, 12/12/2020 16:11:30 12/13/19 21 12/12/2020 urina lysis , dipst ick Bilirubin Negati ve Not Available In-Office Order Internal Use Only DO Not Attach Compendium DO Not Attach Compendium, Do Not Delete/merge, 12/12/2020 16:11:30 12/13/19 21 12/12/2020 urina lysis , dipst ick Glucose Negati ve Not Available In-Office Order Internal Use Only DO Not Attach Compendium DO Not Attach Compendium, Do Not Delete/merge, 12/12/2020 16:11:30 12/06/19 21 12/06/2020 urina lysis , dipst ick Leukocytes Small Not Available In-Offi ce Order Internal Use Only DO Not Attach Compendium DO Not Attach Compendium, Do Not Delete/merge, 12/05/2020 20:44:56 12/06/19 21 12/06/2020 urina lysis , dipst ick Nitrite negati ve Not Available In-Office Order Internal Use Only DO Not Attach Compendium DO Not Attach Compendium, Do Not Delete/merge, 12/05/2020 20:44:56 12/06/19 21 12/06/2020 urina lysis , dipst ick Protein 30 Not Available In-Office Order Internal Use Only DO Not Attach Compendium DO Not Attach Compendium, Do Not Delete/merge, 12/05/2020 20:44:56 12/06/19 21 12/06/2020 urina lysis , dipst ick pH 6.0 Not Available In-Office Order Internal Use Only DO Not Attach Compendium DO Not Attach Compendium, Do Not Delete/merge, 12/05/2020 20:44:56 12/06/19 21 12/06/2020 urina lysis , dipst ick Blood Hemoly zed: Trace Not Available In-Office Order Internal Use Only DO Not Attach Compendium DO Not Attach Compendium, Do Not Delete/merge, 12/05/2020 20:44:56 12/06/19 21 12/06/2020 urina lysis , dipst ick Specific [place] 1.025 Not Available In-Off ice Order Internal Use Only DO Not Attach Compendium DO Not Attach Compendium, Do Not Delete/merge, 12/05/2020 20:44:56 12/06/19 21 12/06/2020 urina lysis , dipst ick Bilirubin Modera te Not Available In-Office Order Internal Use Only DO Not Attach Compendium DO Not Attach Compendium, Do Not Delete/merge, 12/05/2020 20:44:56 12/06/19 21 12/06/2020 urina lysis , dipst ick Glucose Negati ve Not Available In-Office Order Internal Use Only DO Not Attach Compendium DO Not Attach Compendium, Do Not Delete/merge, 12/05/2020 20:44:56 11/30/19 21 11/30/2020 urina lysis , dipst ick Leukocytes Trace Not Available In-Offi ce Order Internal Use Only DO Not Attach Compendium DO Not Attach Compendium, Do Not Delete/merge, 11/29/2020 23:03:12 11/30/19 21 11/30/2020 urina lysis , dipst ick Nitrite negati ve Not Available In-Office Order Internal Use Only DO Not Attach Compendium DO Not Attach Compendium, Do Not Delete/merge, 11/29/2020 23:03:12 11/30/19 21 11/30/2020 urina lysis , dipst ick Urobilinogen 1 Not Available In-Of fice Order Internal Use Only DO Not Attach Compendium DO Not Attach Compendium, Do Not Delete/merge, 11/29/2020 23:03:12 11/30/19 21 11/30/2020 urina lysis , dipst ick Protein 30 Not Available In-Office Order Internal Use Only DO Not Attach Compendium DO Not Attach Compendium, Do Not Delete/merge, 11/29/2020 23:03:12 11/30/19 21 11/30/2020 urina lysis , dipst ick pH 6.5 Not Available In-Office Order Internal Use Only DO Not Attach Compendium DO Not Attach Compendium, Do Not Delete/merge, 11/29/2020 23:03:12 11/30/19 21 11/30/2020 urina lysis , dipst ick Blood Large Not Available In-Office Order Internal Use Only DO Not Attach Compendium DO Not Attach Compendium, Do Not Delete/merge, 11/29/2020 23:03:12 11/30/19 21 11/30/2020 urina lysis , dipst ick Specific [place] 1.030 Not Available In-Off ice Order Internal Use Only DO Not Attach Compendium DO Not Attach Compendium, Do Not Delete/merge, 11/29/2020 23:03:12 11/30/19 21 11/30/2020 urina lysis , dipst ick Ketone Negati ve Not Available In-Office Order Internal Use Only DO Not Attach Compendium DO Not Attach Compendium, Do Not Delete/merge, 11/29/2020 23:03:12 11/30/19 21 11/30/2020 urina lysis , dipst ick Bilirubin Negati ve Not Available In-Office Order Internal Use Only DO Not Attach Compendium DO Not Attach Compendium, Do Not Delete/merge, 11/29/2020 23:03:12 11/30/19 21 11/30/2020 urina lysis , dipst ick Glucose Negati ve Not Available In-Office Order Internal Use Only DO Not Attach Compendium DO Not Attach Compendium, Do Not Delete/merge, 11/29/2020 23:03:12 11/24/19 21 11/23/2020 urina lysis , dipst ick Leukocytes Small Not Available In-Offi ce Order Internal Use Only DO Not Attach Compendium DO Not Attach Compendium, Do Not Delete/merge, 11/23/2020 17:33:54 11/24/1911/23/2020 urina lysis , dipst ick Nitrite positi ve Not Available In-Office Order Internal Use Only DO Not Attach Compendium DO Not Attach Compendium, Do Not Delete/merge, [id number] 11/23/2020 17:33:54 11/24/19 21 11/23/2020 urina lysis , dipst ick Urobilinogen .2 Not Available In-Of fice Order Internal Use Only DO Not Attach Compendium DO Not Attach Compendium, Do Not Delete/merge, 11/23/2020 17:33:54 11/24/19 21 11/23/2020 urina lysis , dipst ick Protein Negati ve Not Available In-Office Order Internal Use Only DO Not Attach Compendium DO Not Attach Compendium, Do Not Delete/merge, 11/23/2020 17:33:54 11/24/19 21 11/23/2020 urina lysis , dipst ick pH 7.0 Not Available In-Office Order Internal Use Only DO Not Attach Compendium DO Not Attach Compendium, Do Not Delete/merge, [id number] 11/23/2020 17:33:54 11/24/19 21 11/23/2020 urina lysis , dipst ick Blood Large Not Available In-Office Order Internal Use Only DO Not Attach Compendium DO Not Attach Compendium, Do Not Delete/merge, [id number] 11/23/2020 17:33:54 11/24/19 21 11/23/2020 urina lysis , dipst ick Specific [place] 1.020 Not Available In-Off ice Order Internal Use Only DO Not Attach Compendium DO Not Attach Compendium, Do Not Delete/merge, [id number] 11/23/2020 17:33:54 11/24/19 21 11/23/2020 urina lysis , dipst ick Ketone Negati ve Not Available In-Office Order Internal Use Only DO Not Attach Compendium DO Not Attach Compendium, Do Not Delete/merge, 11/23/2020 17:33:54 11/24/19 21 11/23/2020 urina lysis , dipst ick Bilirubin Negati ve Not Available In-Office Order Internal Use Only DO Not Attach Compendium DO Not Attach Compendium, Do Not Delete/merge, 11/23/2020 17:33:54 11/24/19 21 11/23/2020 urina lysis , dipst ick Glucose Negati ve Not Available In-Office Order Internal Use Only DO Not Attach Compendium DO Not Attach Compendium, Do Not Delete/merge, [id number] 11/23/2020 17:33:54 11/25/19 21 11/27/2020 URINE CULTU RE, ROUTI NE urine culture, routine FINAL REPORT abnormal Not Available [facility] ([facility]) [address], [place], [address], 11/28/2020 03:07:22 11/25/19 21 11/27/2020 URINE CULTU RE, ROUTI NE result 1 ESCHER ICHIA COLI abnormal 50,00 0-100 ,000 colon y formi ng units per mL Cefaz maría elena <=4 ug/mL Cefaz maría elena with an DEMETRIO <=16 predi cts susce ptibi lity to the oral agent s cefac little, cefdi yessenia, cefpo doxim e, cefpr ozil, cefur oxime , cepha lexin , and lorac arbef when used for thera py of uncom plica mario urina ry tract infec tions due to E. coli, Klebs iella pneum oniae , and Prote us mirab ilis. Not Available [facility] ([facility]) [address], [place], [address], 11/28/2020 03:07:22 11/25/19 21 11/27/2020 URINE CULTU RE, ROUTI NE antimicrobia l susceptibili ty COMMEN T S = Susce ptibl e; I = Inter media te; R = Resis tant P = Posit hortencia; N = Negat hortencia MICS are expre ssed in micro grams per mL Antib iotic RSLT# 1 RSLT# 2 RSLT# 3 RSLT# 4 Amoxi cilli n/Cla vulan ic Acid S Ampic illin S Cefep sadie S Ceftr iaxon e S Cefur oxime I Cipro floxa latrice S Ertap enem S Genta micin S Imipe nem S Levof loxac in S Merop enem S Nitro furan toin S Piper acill in/Ta zobac tompkins S Tetra cycli ne S Tobra mycin S Trime thopr im/Mercado lfa S Not Available [facility] ([facility]) [address], [place], [address], 11/28/2020 03:07:22 12/01/19 21 12/10/2020 NUSWA B VAGIN ITIS PLUS (VG+) atopobium vaginae LOW - 0 score Not Available [facility] ([facility]) [address], [place], [address], 12/10/2020 16:07:51 12/01/1912/10/2020 NUA B VAGIN ITIS PLUS (VG+) bvab 2 LOW - 0 score Not Available [facility] ([facility]) [address], [place], [address], 12/10/2020 16:07:51 12/01/1912/10/2020 NUA B VAGIN ITIS PLUS (VG+) megasphaera 1 LOW - 0 score Calcu late total score by tamika lima the 3 indiv idual bacte rial vagin osis (BV) marke r score s toget her. Total score is inter prete d as follo ws: Total score 0-1: Indic ates the absen ce of BV. Total score 2: Indet ermin ate for BV. Addit ional clini mana data shoul d be evalu ated to estab brittany a diagn osis. Total score 3-6: Indic ates the prese nce of BV. This test was devel oped and its perfo rmanc e dontrell cteri stics deter mined by [facility]. It has not been clear ed or appro dangelo by the Food and Drug Admin istra tion. Not Available [facility] ([facility]) [address], [place], [address], 12/10/2020 16:07:51 12/01/1912/10/2020 NUSWA B VAGIN ITIS PLUS (VG+) conrado albicans, JYOTI POSITI VE negati ve abnormal Not Available [facility] ([facility]) [address] [place], [address], 12/10/2020 16:07:51 12/01/19 21 12/10/2020 NUA B VAGIN ITIS PLUS (VG+) conrado glabrata, JYOTI NEGATI VE negati ve Not Available [facility] ([facility]) [address] [place], [address], 12/10/2020 16:07:51 12/01/19 21 12/10/2020 [facility] (VG+) trich vag by JYOTI POSITI VE negati ve abnormal Not Available [facility] ([facility]) [address] [place], [address], 12/10/2020 16:07:51 12/01/19 21 12/10/2020 NUA B VAGIN ITIS PLUS (VG+) chlamydia trachomatis, JYOTI NEGATI VE negati ve Not Available [facility] ([facility]) [address] [place], [address], 12/10/2020 16:07:51 12/01/19 21 12/10/2020 NUA B VAGIN ITIS PLUS (VG+) neisseria gonorrhoeae, JYOTI NEGATI VE negati ve Not Available [facility] ([facility]) [address] [place], [address], 12/10/2020 16:07:51 12/01/19 21 12/06/2020 HSV JYOTI hsv 1 JYOTI NEGATI VE negati ve Not Available [facility] ([facility]) [address] [place], [address], 12/10/2020 16:07:52 12/01/19 21 12/06/2020 HSV JYOTI hsv 2 JYOTI NEGATI VE negati ve Not Available [facility] ([facility]) [address], [place], [address], 12/10/2020 16:07:52 12/01/19 21 12/02/2020 STREP GP B JYOTI strep gp B JYOTI NEGATI VE negati ve [facility] rs [facility] Disea se Contr ol and Preve ntion ([facility]) and Ameri can Congr ess of Obste trici ans and Gynec ologi sts (ACOG ) guide lines for preve ntion of perin atal group B strep tococ mana (GBS) disea se speci fy co-co llect ion of a vagin al and recta l swab speci men to maxim ize sensi tivit y of GBS detec tion. Per the [facility] and ACOG, swabb ing both the lower vagin a and rectu m subst antia lly incre ases the yield of detec tion cherry red with sampl ing the vagin a alone . Penic illin G, ampic illin , or cefaz maría elena are indic ated for intra partu m proph ylaxi s of perin atal GBS colon izati on. Refle x susce ptibi lity testi ng shoul d be perfo rmed prior to use of clind amyci n only on GBS isola gregory from penic illin -anjel rgic women who are consi dered a high risk for anaph ylaxi s. Treat ment with vanco mycin witho ut addit ional testi ng is warra nted if resis tance to clind amyci n is noted . Not Available [facility] ([facility]) [address], [place], [address], 12/10/2020 16:07:52 04/05/19 23 04/06/2022 QUANT IFERO N-TB GOLD PLUS quantiferon incubation Incuba tion perfor med. Not Available [facility] ([facility]) [address], [place], [address], 04/09/2022 06:11:00 04/05/1904/06/2022 QUANT IFERO N-TB GOLD PLUS quantiferon criteria Commen t Quant iFERO N-TB Gold Plus is a quali tativ e indir ect test for M tuber culos is infec tion (incl uding disea se) and is inten ded for use in conju nctio n with risk asses sment , radio graph y, and other medic al and diagn ostic evalu ation s. The Quant iFERO N-TB Gold Plus resul t is deter mined by subtr actin g the Nil value from eithe r TB antig en (Ag) value . The Mitog en tube serve s as a contr ol for the test. Not Available [facility] ([facility]) [address] [place], [address], 04/09/2022 06:11:00 04/05/1904/09/2022 QUANT IFERO N-TB GOLD PLUS quantiferon- TB gold plus Negati ve negati ve No respo nse to M tuber culos is antig ens detec mario. Infec tion with M tuber culos is is unlik trevor, but high risk indiv idual s shoul d be consi dered for addit ional testi ng (ATS/ IDSA/ CDC Clini mana Pract ice Guide lines , 2017) . The refer ence range is an Antig en minus Nil resul t of <0.35 IU/mL . Chemi lumin escen ce immun oassa y metho dolog y Not Available [facility] ([facility]) [address] [place], [address], 04/09/2022 06:11:00 04/05/1904/09/2022 QUANT IFERO N-TB GOLD PLUS quantiferon TB1 Ag value 0.03 IU/mL Not Available [facility] ([facility]) [address] [place], [address], 04/09/2022 06:11:00 04/05/1904/09/2022 QUANT IFERO N-TB GOLD PLUS quantiferon TB2 Ag value 0.04 IU/mL Not Available [facility] ([facility]) [address] [place], [address], 04/09/2022 06:11:00 04/05/19 23 04/09/2022 QUANT IFERO N-TB GOLD PLUS quantiferon nil value 0.03 IU/mL Not Available [facility] ([facility]) [address] [facility] [address], [place], [address], 04/09/2022 06:11:00 04/05/19 23 04/09/2022 QUANT IFERO N-TB GOLD PLUS quantiferon mitogen value >10.00 IU/mL Not Available [facility] ([facility]) [address] [facility] [address], [place], [address], 04/09/2022 06:11:00 09/30/19 24 09/30/2023 pap, IG + HR HPV Pap,thinprep ,HPV negati ve Not Available Not Available 13:56:23 02/16/20 24 09/30/2023 XR, chest No observ ation record ed. [email or web address] [place], [address], 02/18/2024 15:14:10 Result Notes None recorded. Problems Name Problem SNOMED Code Status Onset Date Resolution Date Notes Provider Name and Address Organization Details Recorded Time Migraine 17104319 Active 2018 Sur[place], [place] [facility] 17:00:49 Dysmenor frank 189519488 Active 2018 [place] [facility] 17:01:59 Pregnanc y 68357960 Completed 202010/24/2020 [place] [facility] 13:26:03 Steriliz ation requeste d 393049941 Completed 2020 pptl Gladys Mays MD Attn: Charissa lima,[address] [facility], [place], [address], [place] [facility] 2 12:10:15 Steriliz ation requeste d 953378728 Active 2020 pptl Gladys Mays MD Attn: Accountin g,[address] [facility], [place], [address], [place] [facility] 2 12:10:15 Genital herpes simplex type 2 550204610 Active 2020 Gladys Mays MD Attn: Accountin g,[address] [facility], [place], [address], [place] [facility] 2 12:10:16 Genital herpes simplex type 2 307493396 Completed 2020 Gladys Mays MD Attn: Accountin g,[address] [facility], [place], [address], [place] [facility] 2 12:10:15 Anemia 183926374 Active 2020 Gladys Mays MD Attn: Accountin g,[address] [facility], [place], [address], [place] [facility] 2 12:10:16 Anemia 700847446 Completed 2020 Gladys Mays MD Attn: Accountin g,[address] [facility], [place], [address], [place] [facility] 2 12:10:16 Group B Streptoc occus carrier [id number] 03 Completed 2020 Gladys Mays MD Attn: Accountin g,[address] [facility], [place], [address], [place] [facility] 2 12:10:16 Group B Streptoc occus carrier [id number] 03 Active 2020 lGadys Mays MD Attn: Accountin g,[address] [facility], [place], [address], [place] [facility] 2 12:10:16 Large for gestatio n age fetus 253281054 Active Gladys Mays MD Attn: Accountin g,[address] [facility], [place], [address], [place] [facility] 2 12:10:16 Oligohyd ramnios 65935901 Active inductio n of labor Gladys Mays MD Attn: Accountin g,[address] [facility], [place], [place], [address] [place] [address] 2, [place] [facility] 2 12:10:16 Large for gestatio n age fetus 407843132 Completed Gladys Mays MD Attn: Accountin g,[address] [facility], [place], [place], [address] [place] [address] 2, [place] [facility] 2 12:10:16 Oligohyd ramnios 98298055 Completed inductio n of labor Gladys Mays MD Attn: Accountin g,[address] [facility], [place], [place], [address] [place] [address] 2, [place] [facility] 2 12:10:16 Urinary tract infectio us disease 67395682 Completed 2020 Gladys Mays MD Attn: Accountin g,[address] [facility], [place], [place], [address] [place] [address] 2, [place] [facility] 2 12:10:16 Urinary tract infectio us disease 87270245 Active 2020 Gladys Mays MD Attn: Accountin g,[address] [facility], [place], [place], [address] [place] [address] 2, [place] [facility] 2 12:10:16 Urogenit al infectio n by Trichomo lauro vaginali s 55649757 Active 2020 Gladys Mays MD Attn: Accountin g,[address] [place], [place], [address] [place] [address] 2, [place] [facility] 2 12:10:15 Urogenit al infectio n by Trichomo lauro vaginali s 59048410 Completed 2020 Gladys Mays MD Attn: Accountin g,[address] [place], [place], [address] [place] [address] 2, [place] [facility] 2 12:10:15 Bacteria l vaginosi s 927066327 Active [place] [facility] 8 11:53:06 Bacteria l vaginosi s 029429183 Completed [place] [facility] 20:22:33 [facility] hyperten fawad 58368471 Active 2023 MARICEL SPRAGUE PA-C Attn: Accountin g,[address] [facility], [place], [address], [place] [facility] 4 09:45:25 Generali zed anxiety disorder [id number] Active 2023 MARICEL SPRAGUE PA-C Attn: Accountin g,[address] [facility], [place], [address], [place] [facility] 4 09:45:35 Gastroes ophageal reflux disease without esophagi tis 029928191 Active 2023 MARICEL SPRAGUE PA-C Attn: Accountin g,[address] [facility], [place], [place], [address] [place] [address], [place] [facility] 4 09:45:44 HPV - Human papillom avirus test positive [place] ba[place] [facility] 8 11:53:06 Streptoc occus carrier 777342483 Active + GBS [place] [facility] 8 11:53:06 Infectio n by Trichomo lauro 71854861 [place] [facility] 8 11:53:06 Infectio n by Conrado albicans 67491153 [place] [facility] 8 11:53:06 Chlamydi al infectio n 461017866 [place] [facility] 8 11:53:06 Candidia sis 68541858 [place] [facility] 8 11:53:06 Candidia sis 00253865 Com[place] [facility] 5 20:22:33 Blood glucose outside referenc e range 483464507 [place] [facility] 8 11:53:06 Blood glucose outside referenc e range 455857735 Com[place] [facility] 5 20:22:33 Acute urinary tract infectio n 041142960 [place] [facility] 8 11:53:06 Acute urinary tract infectio n 789251083 Com[place] [facility] 5 20:22:33 Chlamydi al infectio n [id number] Com[place] [facility] 5 20:22:33 Constipa tion 07744879 Completed [place] [facility] 5 20:22:32 Constipa tion 81128830 [place] [facility] 8 11:53:06 Gastroes ophageal reflux disease 422948954 Com[place] [facility] 5 20:22:33 Venereal disease in mother complica ting pregnanc y, childbir th AND/OR puerperi 76754347 [place] [facility] 8 11:53:06 Venereal disease in mother complica ting pregnanc y, childbir th AND/OR puerperi 15295795 Com[place] [facility] 5 20:22:33 Gonorrhe a 19369542 [place] [facility] 8 11:53:06 Gonorrhe a 18816359 Com[place] [facility] 5 20:22:[address] [facility] [id number] Completed 10/24/2020 [place] [facility] 1 13:26:[address] [facility] [id number] Com[place] [facility] 5 20:22:33 Postpart care Completed 10/24/2020 [place] [facility] 1 13:26:13 Postpart care Com[place] [facility] 5 20:22:33 HPV - Human papillom avirus test positive Com[place] [facility] 5 20:22:13 Candidia sis of vagina 13870578 [place] [facility] 8 11:53:06 Candidia sis of vagina 17884763 Com[place] ba[place] [facility] 6 16:56:18 Bacteria l vaginosi s 543221310 Completed [place] [facility] 6 16:56:18 HPV - Human papillom avirus test positive Completed [place] [facility] 6 16:56:18 Herpes simplex 11445652 [place] [facility] 8 11:53:06 Herpes simplex 41318639 Com[place] [facility] 6 16:56:18 Problem Notes None recorded. Procedures Surgical History Date Name Laterality Status Provider Name and Address Organization Details Recorded Time Date of Last Pap Smear completed Geetha Spears [place] - [facility] 10/10/2020 15:33:28 8 Depo Injection completed Corine Ford [place] - [facility] 05/14/2017 14:15:23 7 Depo Injection completed Corine Ford [place] [facility] 10/14/2016 14:29:35 Imaging Results Imaging Date Name Status LastModified by Organiz ation Details LastModified Time 09/30/2023 XR, chest completed [email or web address] [facility] [address] [place], [address], 02/18/2024 15:14:10 Procedure Notes None recorded. Medical Equipment None Reported. Allergies Allergen ID Allergen Name Allergen Category Reaction Reaction Severity Criticality Documentation Date Start Date Code Code System Note Provider Name and Address Organization Details Recorded Time [id number] shellfish derived food,medi cation respirato ry distress moderate Not available 06/21/2014 [id number] UNK Not Available Not Available Not Available Medications Name Sig Start Date Stop Date Status Note LastModified by Organization Details LastModified Time multivitami n tablet Take 1 tablet every day by oral route. 03/14 completed Not Available Not Available Not Available amoxicillin 500 mg capsule TAKE 1 CAPSULE BY MOUTH EVERY 8 HOURS 02/15 completed Not Available Not Available Not Available Mirena 21 mcg/24 hr (up to 8 years) 52 mg intrauterin e device Take 1 device by intrauter ine route. 05/14 completed Not Available Not Available Not Available bupropion HCl SR 150 mg tablet,12 hr sustained-r elease Take 1 tablet twice a day by oral route. 07/20 completed Not Available Not Available Not Available clindamycin HCl 300 mg capsule TAKE 1 CAPSULE BY MOUTH EVERY 6 HOURS FOR 10 DAYS 02/15 completed Not Available Not Available Not Available Tab-A-Sylvia tablet 08/31 completed Not Available Not Available Not Available azithromyci n 250 mg tablet TAKE 2 TABLETS (500 MG) BY ORAL ROUTE ONCE DAILY FOR 1 DAY THEN 1 TABLET (250 MG) BY ORAL ROUTE ONCE DAILY FOR 4 DAYS 12/12 completed Not Available Not Available Not Available ibuprofen 800 mg tablet TAKE 1 TABLET BY MOUTH THREE TIMES DAILY NEEDED FOR CRAMPS 07/20 completed Not Available Not Available Not Available fluconazole 150 mg tablet TAKE 1 TABLET BY MOUTH FOR 1 DOSE 02/05 completed Not Available Not Available Not Available valacyclovi r 1 gram tablet Take 1 tablet every day by oral route. 02/15 completed Not Available Not Available Not Available hydrocodone 5 mg-acetamin ophen 325 mg tablet TAKE 1 TABLET BY MOUTH EVERY 6 HOURS NEEDED 02/15 completed Not Available Not Available Not Available naltrexone 50 mg tablet Take 0.5 tablets twice a day by oral route. 07/20 completed Not Available Not Available Not Available metronidazo le 0.75 % (37.5 mg/5 gram) vaginal gel Insert 1 applicato rful every day by vaginal route at bedtime for 5 days. 07/20 completed Not Available Not Available Not Available ondansetron HCl 4 mg tablet active Not Available Not Available Not Available famotidine 40 mg tablet active Not Available Not Available Not Available penicillin V potassium 500 mg tablet Take 1 tablet twice a day by oral route for 10 days. 08/31 completed Not Available Not Available Not Available metronidazo le 500 mg tablet TAKE 1 TABLET BY MOUTH TWICE DAILY active Not Available Not Available No t Available acetaminoph en 300 mg-codeine 30 mg tablet 08/31 completed Not Available Not Available Not Available amlodipine 5 mg tablet TAKE 1 TABLET BY MOUTH DAILY 04/08 completed Not Available Not Available Not Available ciprofloxac in 500 mg tablet Take 1 tablet twice a day by oral route for 7 days. 08/31 completed Not Available Not Available Not Available sulfamethox azole 800 mg-trimetho prim 160 mg tablet 08/31 completed Not Available Not Available Not Available tramadol 50 mg tablet 10/10 completed Not Available Not Available Not Available Condoms-Pre m Lubricated USE DIRECTED 03/14 completed Not Available Not Available Not Available acyclovir 800 mg tablet Take 1 tablet every day by oral route. 08/31 completed Not Available Not Available Not Available Macrobid 100 mg capsule Take 1 capsule every 12 hours by oral route for 7 days. 05/14 completed Not Available Not Available Not Available Vitamin tablet Take 1 tablet every day by oral route as directed for 90 days. 05/14 completed Not Available Not Available Not Available amoxicillin 875 mg tablet 10/10 completed Not Available Not Available Not Available famotidine 20 mg tablet TAKE 1 TABLET BY MOUTH TWICE DAILY FOR 14 DAYS active Not Available Not Available No t Available amlodipine 10 mg tablet TAKE 1 TABLET BY MOUTH EVERY DAY FOR BLOOD PRESSURE active Not Available Not Available No t Available doxycycline monohydrate 100 mg capsule 10/10 completed Not Available Not Available Not Available cephalexin 500 mg capsule Take 1 capsule twice a day by oral route for 7 days. 12/12 completed Not Available Not Available Not Available naproxen sodium 550 mg tablet active Not Available Not Available No t Available metformin 1,000 mg tablet active Not Available Not Available Not Available polymyxin B sulfate 10,000 unit-trimet hoprim 1 mg/mL eye drops INSTILL 1 DROP IN RIGHT EYE FOUR TIMES DAILY. MAY USE EVERY 4 HOURS WHILE AWAKE 02/15 completed Not Available Not Available Not Available losartan 25 mg tablet TAKE 1 TABLET BY MOUTH ONCE DAILY active Not Available Not Available No t Available hydroxyzine HCl 25 mg tablet TAKE 1 TABLET BY MOUTH THREE TIMES DAILY NEEDED active Not Available Not Available No t Available mupirocin 2 % topical ointment 10/10 completed Not Available Not Available Not Available ibuprofen 600 mg tablet TAKE 1 TABLET BY MOUTH EVERY 6 HOURS NEEDED 02/15 completed Not Available Not Available Not Available methylpredn isolone 4 mg tablets in a dose pack 10/10 completed Not Available Not Available Not Available norethindro ne (contracept hortencia) 0.35 mg tablet Take 1 tablet every day by oral route. 07/20 completed Not Available Not Available Not Available Percocet 5 mg-325 mg tablet Take 1 tablet every 6 hours by oral route. 2014 active Not Available Not Available Not Avai lable medroxyprog esterone 150 mg/mL intramuscul ar suspension Inject 150 mg every 3 months by intramusc ular route. 08/31 completed Not Available Not Available Not Available doxycycline hyclate 100 mg tablet TAKE 1 TABLET BY MOUTH TWICE DAILY active Not Available Not Available No t Available naproxen 500 mg tablet 10/10 completed Not Available Not Available Not Available azithromyci n 500 mg tablet Take 1 tablet every day by oral route for 7 days. active Not Available Not Available No t Available medroxyprog esterone 150 mg/mL intramuscul ar syringe Inject 1 mL every 3 months by intramusc ular route for 90 days. 08/[address] [facility] [place]# [phone] -1 Not Available Not Available Not Available FE 04/19 (28) 1 mg-20 mcg (21)/75 mg (7) tablet active Not Available Not Available N ot Available 03/14 completed Not Available Not Available Not Available Oysco 500/D 500 mg-5 mcg (200 unit) tablet 07/20 completed Not Available Not Available Not Available FeroSul 325 mg (65 mg iron) tablet One tablet by mouth once daily. 02/15 completed Not Available Not Available Not Available Calcium with Vitamin D 600 mg-10 mcg (400 unit) tablet Take 1 tablet twice a day by oral route. 03/14 completed Not Available Not Available Not Available Vinate One 60 mg iron-1 mg tablet 08/31 completed Not Available Not Available Not Available butalbital- acetaminoph en-caffeine 50 mg-300 mg-40 mg capsule TAKE ONE CAPSULE BY MOUTH EVERY 4-6 HOURS NEEDED 10/10 completed Not Available Not Available Not Available Plus (calcium carbonate) 27 mg iron-1 mg tablet active Not Available Not Available Not Available Nexplanon 68 mg subdermal implant Inject 1 implant by subcutane ous route. 08/31 completed Not Available Not Available Not Available Fiber (psyllium husk-sugar) 3.4 gram/7 gram oral powder Take 1 tbsp every day by oral route. 02/15 completed Not Available Not Available Not Available calcium 600 mg (as carbonate)- vitamin D3 20 mcg (800 unit) tablet Take 1 tablet twice a day by oral route for 30 days. 08/31 completed Not Available Not Available Not Available Linzess 145 mcg capsule Take 1 capsule every day by oral route. 2014 active Not Available Not Available Not Avai lable Xulane 150 mcg-35 mcg/24 hr transdermal patch APPLY 1 PATCH TOPICALLY TO THE SKIN EVERY WEEK 02/15 completed Not Available Not Available Not Available Junel Fe 24 1 mg-20 mcg (24)/75 mg (4) tablet Take 1 tablet every day by oral route. 10/10 completed Not Available Not Available Not Available Twirla 120 mcg-30 mcg/24 hr transdermal patch APPLY 1 PATCH TOPICALLY TO THE SKIN EVERY WEEK FOR 21 DAYS DIRECTED FOR CONTROL 02/15 completed Not Available Not Available Not Available Vitals Date Recorded Body height Provider Name an d Address Organization Details Last Updated DateTime 12/12/2020 167.64 cm MAGDALENA PAYNE Attn: Accounting,[address] [place], [address], [facility] 12/12/2020 16:17:20 Date Recorded Body mass index (BMI) Body weight Provider Name and Address Organization Details Last Updated DateTime 12/12/2020 36.8 kg/m2 614263.21651 g MAGDALENA PAYNE Attn: Accounting,[address] [place], [address], [facility] 12/12/2020 16:29:17 Date Recorded Body height Provider Name an d Address Organization Details Last Updated DateTime 02/05/2021 167.64 cm Geetha Spears MA [facility] 02/06/20 11:51:17 Date Recorded Body mass index (BMI) Provider Name and Address Organization Details Last Updated DateTime 02/05/2021 34.2 kg/m2 Geetha Spears MA [facility] 02/06/20 21 11:51:28 Date Recorded Body weight Provider Name an d Address Organization Details Last Updated DateTime 02/05/2021 51142.02408 g Suraj Rachel [facility] 021 13:42:36 Date Recorded Body height Provider Name an d Address Organization Details Last Updated DateTime 04/05/2022 167.64 cm Colette Johnston MA [facility] 04/05/19 23 12:37:57 Date Recorded Body mass index (BMI) Body weight Provider Name and Address Organization Details Last Updated DateTime 04/05/2022 36.5 kg/m2 301501.88 g Colette Johnston MA [facility] 04/05/2022 12:38:01 Date Recorded Body temperature Provider Name a nd Address Organization Details Last Updated DateTime 04/05/2022 97.6 [degF] Colette Johnston MA [facility] 023 12:38:08 Date Recorded Heart rate Provider Name an d Address Organization Details Last Updated DateTime 04/05/2022 64 /min Colette Johnston MA [facility] 04/05/19 23 12:38:17 Date Recorded Oxygen saturation Oxygen saturation in Arterial blood by Pulse oximetry Provider Name and Address Organization Details Last Updated DateTime 04/05/2022 98 % 98 % Colette Johnston MA [facility] 04/05/2022 12:38:21 Date Recorded Body height Provider Name an d Address Organization Details Last Updated DateTime 02/16/2024 167.64 cm Brandi Hernandez MA [facility] 02/16/20 24 08:51:57 Date Recorded Body mass index (BMI) Body weight Provider Name and Address Organization Details Last Updated DateTime 02/16/2024 39.2 kg/m2 864058.87 g Brandi Hernandez [facility] 02/16/2024 08:52:14 Date Recorded Oxygen saturation Oxygen saturation in Arterial blood by Pulse oximetry Provider Name and Address Organization Details Last Updated DateTime 02/16/2024 99 % 99 % Brandi Hernandez [facility] 02/16/2024 08:54:05 Date Recorded Heart rate Provider Name an d Address Organization Details Last Updated DateTime 02/16/2024 69 /min Brandi Hernandez [place] [facility] 02/16/20 08:54:16 Date Recorded Body height Provider Name an d Address Organization Details Last Updated DateTime 04/08/2024 167.64 cm Jacquie Sanchez MA [facility] 04/08/2024 09:46:28 Date Recorded Body mass index (BMI) Body weight Provider Name and Address Organization Details Last Updated DateTime 04/08/2024 38.1 kg/m2 171660.8 g Jacquie Sanchez [facility] 09:51:23 Date Recorded Oxygen saturation Oxygen saturation in Arterial blood by Pulse oximetry Provider Name and Address Organization Details Last Updated DateTime 04/08/2024 99 % 99 % Jacquie Sanchez MA [facility] 04/08/2024 09:54:37 Date Recorded Heart rate Provider Name an d Address Organization Details Last Updated DateTime 04/08/2024 72 /min Jacquie Sanchez [facility] 04/08/2024 09:54:41 Date Recorded Systolic blood pressure Diastolic blood pressure Provider Name and Address Organization Details Last Updated DateTime 12/12/2020 104 mm[Hg] 70 mm[Hg] MAGDALENA PAYNE Attn: Accounting,[address] [place], [address], [facility] 12/12/2020 16:20:55 Date Recorded Systolic blood pressure Diastolic blood pressure Provider Name and Address Organization Details Last Updated DateTime 02/05/2021 120 mm[Hg] 80 mm[Hg] Geetha Spears [place] [facility] 02/05/2021 11:57:37 Date Recorded Systolic blood pressure Diastolic blood pressure Provider Name and Address Organization Details Last Updated DateTime 04/05/2022 124 mm[Hg] 82 mm[Hg] Colette Johnston [facility] 04/05/2022 12:39:28 Date Recorded Systolic blood pressure Diastolic blood pressure Provider Name and Address Organization Details Last Updated DateTime 02/16/2024 158 mm[Hg] 104 mm[Hg] Brandi KrishnanCAYETANO jeffrey [facility] 02/16/2024 08:58:06 Date Recorded Systolic blood pressure Diastolic blood pressure Provider Name and Address Organization Details Last Updated DateTime 04/08/2024 140 mm[Hg] 80 mm[Hg] Jacquie Sanchez [facility] 04/08/2024 09:54:34 Social History Question Answer Notes LastModified by Organizat ion Details LastModified Time Tobacco Smoking Status Current Some Day Smoker Jacquie Sanchez MA null, [facility] 04/08/2024 09:51:53 Do You Have An Advance Directive? No Information not available 06/21/2014 What Is Your Level Of Alcohol Consumption? None Information not available 07/21/2019 If You Are , What Was Your Level Of Alcohol Consumption Prior To ? None Information not available 06/21/2014 Is Anesthesia Consult Planned? No Information not available 06/21/2014 Plan Yes Information no t available 07/08/2014 Is Blood Transfusion Acceptable In An Emergency? Yes Information not available 06/21/2014 What Is Your Level Of Caffeine Consumption? Occasional Information not available 07/08/2014 Live With Cats/exposure To Cat Litter No Information not available 06/21/2014 How Much Tobacco Do You Chew? None Information not available 06/21/2014 Are You Currently Employed? No Information not available 06/21/2014 What Type Of Diet Are You Following? REGULAR Information not available 06/21/2014 Which Illicit Or Recreational Drugs Have You Used? None Information not available 07/21/2019 Do You Or Have You Ever Used E-cigarettes Or Vape? Never Used Electronic Cigarettes Information not available 07/21/2019 Education 12 Information no t available 06/21/2014 Have There Been Any Changes To Your Family Or Social Situation? No Information not available 06/21/2014 Frequent Air Travel No Information not available 06/21/2014 Illicit Drugs Pre- No Information not available 07/08/2014 Live Alone Or With Others? With Others Information not available 06/21/2014 Marital Status Single [email or web address] Informatio n not available 06/21/2014 What Was The Date Of Your Most Recent Tobacco Screening? 04/08/2024 Information not available 04/08/2024 How Many Children Do You Have? 3 [email or web address] Information not available 05/14/2017 Performs Monthly Self-breast Exam? No [email or web address] Information not available 05/14/2017 Do You Use Protection During Sex? Usually [email or web address] Information not available 05/14/2017 What Is Your Relationship Status? Single [email or web address] Information not available 05/14/2017 Do You Use Your Seat Belt Or Car Seat Routinely? Yes Information not available 11/23/2020 Seat Belts Used Routinely Yes Information not available 06/21/2014 Are You Sexually Active? Yes Information not available 06/21/2014 Do You Have Smoke And Carbon Monoxide Detectors In Your Home? Yes Information not available 06/21/2014 Are You Passively Exposed To Smoke? No Information not available 07/08/2014 Do You Or Have You Ever Used Smokeless Tobacco? Never Used Smokeless Tobacco Information not available 07/21/2019 How Much Tobacco Do You Smoke? No [email or web address] Information not available 11/24/2014 Smoking Pre- Yes Information not available 06/21/2014 General Stress Level Medium Information not available 06/21/2014 Do You Use Any Illicit Or Recreational Drugs? Yes Marajuanna [email or web address] Information not available 02/16/2024 Do You Use Sunscreen Routinely? No Information not available 06/21/2014 Supplements Vitamins Information not available 07/08/2014 Has Tobacco Cessation Counseling Been Provided? No Information not available 11/23/2020 On What Date Was Tobacco Cessation Counseling Provided? 04/08/2024 Information not available 04/08/2024 How Many Years Have You Smoked Tobacco? 6 Information not available 07/21/2019 Do You Or Have You Ever Used Any Other Forms Of Tobacco Or Nicotine? No [email or web address] Information not available 10/10/2020 Sex: Unknown Functional Status Question Answer Note LastModified by Organization D etails LastModified Time What is your exercise level? None Information not available 06/21/2014 Mental Status None recorded. Family History Relationship Description Onset Age of this Age Resolved Age Notes LastModified by Organization Details LastModified Time Mother Hypertensive disorder [email or web address] Not available 2015 13:14:22 Paternal Aunt Malignant neoplasm of bone [email or web address] Not available 2015 13:14:22 Paternal Aunt Hypertensive disorder [email or web address] Not available 2015 13:14:22 Father Hypertensive disorder [email or web address] Not available 2015 13:14:22 Medical History Condition Response Coronary Artery Disease N Blood Diseases N Kidney Cyst N Hyperthyroidism N Blood disorders N MRSA N Blood Transfusion N Emphysema N Blood Clots N COPD N Depression N Pneumonia N Peripheral Arterial Disease N Premature N Edema N TIA N Headaches/Migraines Y Anxiety Disorder N Obesity N Infertility N Polyps N Acid Reflux (GERD) Y Hematuria N Stroke N Neck Injury N Polio N Hospital Admission other than N Neurologic Disorder N Other Sleep Disorders N Rheumatoid Arthritis N Fibromyalgia N Abdominal Aortic Aneurysm Repair N Kidney Disease N Heart Conditions N Heart Disease/Heart Problems N Hospitalizations N Brain Tumors N Acne N Eating Disorder N Skin Problems N Constipation Y Meningitis N Tuberculosis N Cerebral Palsy N Myocardial Infarction N Asthma N Substance Abuse N Peripheral Vascular Disease N Vertigo N Sleep Disorder N Cirrhosis N Pulmonary Embolism N Chicken Pox Y Flomax Use Past or Present N Hematologic Disease N Anxiety/Depression N Thyroid Disease N Colon Cancer N Glaucoma N Lung Disease N Developmental or Behavioral Disorders N Bipolar N Pacemaker N Diverticulitis/Diverticulosis N Anesthesia Complications N Orthopedic Problems N Orthotics N Head Injury/Concussion N Congenital Anomalies N Cash Bite N Chronic Kidney Disease N Endometriosis N Liver Disease N Dialysis N Schizophrenia N Speech Delay N Chronic Obstructive Pulmonary Disease N Parkinson's Disease N Thyroid Problems N GI Problems N Developmental Delay N Anemia N Immune System Disorder N Multiple Sclerosis N Colon Polyps N Heart Attack (UT) N Diabetes N Cardiomyopathy N Blood Transfusions N Heart Problems/Murmur N Eye Trauma N Congestive Heart Failure (CHF) N Valvular Heart Disease N Hyperlipidemia N Double Vision N Abuse/Domestic Violence N Hepatitis B N Lupus N Epilepsy/Seizures N Reflux/GERD N Aneurysm N Bronchitis N Heart Disease N Hypertension N Pre-Eclampsia N Heart Failure N Other N Gout N High Blood Pressure N Atrial Fibrillation N Kidney Stones N Head Trauma/Injury N Congenital Heart Disease N Spine Problems N Gastrointestinal Disease N Lung Mass N Sinusitis N Obstructive Sleep Apnea N Muscle, Joint, or Bone Problems N Autoimmune disease N Vision or Eye Problems Y Arthritis N Blood Clot N Cancer N Seasonal allergies N Leg or Foot Ulcers N Raynaud's Disease N Aortic Aneurysm N Arrhythmia N Headaches N Heart Problems N Ambloypia N Ear or Hearing Problems N Hyperparathyroidism N Migraines Y Artificial Joints N Kidney or Bladder Problems N NSAID Use N Encephalitis N PTSD N Ulcers N Prostate Hypertrophy N Bleeding Disorder N AIDS/HIV N Urinary Tract Infection Y Back Problems N Allergies N Atrial Flutter N GERD/Reflux N Hepatitis N Autism Spectrum Disorder (ASD) N Breast Cancer N Hernia N Hypothyroidism N Breast Problem N Genitourinary Disease N Deep Vein Thrombosis N Varicose Veins N Cystic Fibrosis N Hearing Loss N Developmental Problems N Carotid Disease N Vitamin D Deficiency N ADHD N Bladder or Kidney Problems N High Cholesterol N [place] N Valvular Abnormalities N Psychiatric/Mental Health Condition N Organ Transplant N Foot Deformity N Allergies/Hayfever N Dyslipidemia N Hyponatremia N Diabetic Eye Disease N Osteoporosis/Osteopenia N Back Pain Y Proteinuria N Mental Illness N Neurological Problems N Ovarian Cancer N Bedwetting N Seizures/Epilepsy N Kidney Failure N Ocular trauma N Dementia N Diverticulitis N Sleep Apnea N Mental Problems N Warfarin Management N Osteoporosis N Gynecological History Statement/Question Response Abnormal Pap Y Flow Heavy Date of LMP 03/15/2024 On BCP's at Conception? N STIs/STDs Yes HPV Vaccine Y Duration of Flow (days) 5 Age at Menarche 10 Current Control Method None Age at First Child 13 Sexually Active? Y Menses Monthly Y Date of Last Pap Smear 08/29/2020 Sexual Problems? N LMP Approximate Desired Control Method Sterilizati on Obstetrics History GPAL:G 4 P 4 0 0 5 Type Value Multiple Births 0 Full Term 4 Induced 0 Spontaneous 0 Premature 0 Living 5 Ectopics 0 Total 4 Immunizations Vaccine Type Date Status Note Provider Sigifredo e and Address Organization Details Recorded Time HPV, bivalent 03/31/2008 completed Suraj ba, [facility] 05/14/2017 11:53:13 Influenza, high-dose, trivalent, PF 02/07/2014 completed Suraj ba [facility] 05/14/2017 11:53:13 Tdap 01/05/2016 completed [facility] 04/17[facility]2019 02:41:31 Tdap 10/10/2020 completed Jes Joyner MA j[place], [place] - [facility] 10/10/2020 17:18:05 Past Encounters Encounter ID Performer Location Encounter Start Date Encounter Closed Date Diagnosis/Indication Diagnosis SNOMED-CT Code Diagnosis ICD10 Code Diagnosis Note [id number] CAYETANO Matthews (ADMISSIONS NURSE) [address] [place] [address] [id number] 0 06/21/2014 11:09:04 06/21/2014 12:48:49 Normal [id number] Bacterial vaginosis 037130108 [id number] NEGRITA Vo (ADMISSIONS NURSE) [address] [place] [address] [id number] 0 07/19/2014 11:14:30 07/20/2014 16:33:52 Normal [id number] CAYETANO Matthews (ADMISSIONS NURSE) [address] [place] [address] [id number] 0 08/16/2014 15:04:13 08/16/2014 16:57:53 Normal 25387847 Acute urin norman tract infection 785915059 Chlamydial infection [id number] [facility] [id number] NEGRITA Vo (ADMISSIONS NURSE) [address] [place] [address] [id number] 0 10/05/2014 13:58:14 10/05/2014 16:56:58 Normal 08701545 Acute urin norman tract infection 631476142 Venereal d isease screening 722465160 [id number] CAYETANO Montalvo (ADMISSIONS NURSE) [address] [place] [address] [id number] 0 11/02/2014 15:19:50 11/02/2014 16:44:35 Normal 60106439 Gastroesop hageal reflux disease 758759672 [id number] Suraj Coffey (ADMISSIONS NURSE) [address] [place] [address] [id number] 0 11/24/2014 15:27:15 11/24/2014 17:17:06 Normal 36853569 Streptococcus carrier [id number] NEGRITA Vo (ADMISSIONS NURSE) [address] [place] [address] [id number] 0 12/08/2014 15:13:36 12/08/2014 15:46:16 Normal 03854334 Streptococcus carrier [id number] Suraj [facility] (ADMISSIONS NURSE) [address] [place] [address] [id number] 0 12/15/2014 15:12:11 12/15/2014 16:49:02 Normal 81417424 Streptococcus carrier [id number] Venereal d isease in mother complicating , childbirth AND/OR puerperium 48706116 [id number] [facility] [address] [place] [address] [id number] 0 12/26/2014 09:45:58 12/26/2014 11:04:23 Normal 44436282 [id number] [facility] [address] [place] [address] [id number] 0 02/13/2015 14:08:55 02/13/2015 15:28:00 state 24324036 Z39.2 care 29773173 8 Z39.2 [id number] MD Alexx Macario (ADMISSIONS NURSE) [address] [place] [address] [id number] 0 11/29/2015 10:41:39 11/29/2015 17:01:26 Routine care 364820641 Z34.92 Candidiasis of vagina 72 242767 B37.3 [id number] MD Alexx Macario (ADMISSIONS NURSE) [address] [place] [address] [id number] 0 01/05/2016 12:11:29 01/09/2016 12:55:08 Routine care 194547587 Z34.92 [id number] MD Alexx Macario (ADMISSIONS NURSE) [address] [place] [address] [id number] 0 01/30/2016 15:23:51 01/31/2016 10:57:49 Routine care 629902302 Z34.92 Urinary tr act infectious disease 47357458 N39.0 [id number] Suraj Coffey (ADMISSIONS NURSE) [address] [place] [address] [id number] 0 02/07/2016 16:07:17 02/08/2016 19:13:55 Routine care 324585459 Z34.93 [id number] MD Alexx Macario (ADMISSIONS NURSE) [address] [place] [address] [id number] 0 02/19/2016 15:55:51 02/20/2016 15:12:46 Routine care 131078117 Z34.92 [id number] Suraj Coffey (ADMISSIONS NURSE) [address] [place] [address] [id number] 0 02/26/2016 12:00:19 02/28/2016 15:14:18 Routine care 012377105 Z34.93 Female sterilization 608 84409 Z30.2 Desires PPTL Streptococcus carrier 17 7186225 Z22.338 Herpes simplex 67218562 B00.9 Venereal d isease in mother complicating , childbirth AND/OR puerperium 07517704 O98.052 [id number] CAYETANO Zavala (ADMISSIONS NURSE) [address] [place] [address] [id number] 0 07/16/2016 15:48:43 07/18/2016 13:30:29 Family planning surveillance 072187108 Z30.09 Uses depot contraception 052982511 Z30.013 Exposure t o sexually transmissible disorder 661536432 Z20.2 Female sterilization 608 68633 Z30.2 Desires PPTL [id number] CAYETANO Montalvo (ADMISSIONS NURSE) [address] [place] [address] [id number] 0 10/14/2016 11:19:32 10/18/2016 10:18:01 Uses depot contraception 461047772 Z30.455 [id number] Suraj Coffey (ADMISSIONS NURSE) [address] [place] [address] [id number] 0 05/14/2017 11:12:33 05/14/2017 12:53:38 Family planning surveillance 582950604 Z30.09 Herpes simplex 27632149 B00.9 Obesity 192121747 E66.9 discussed diet and exercise [id number] Suraj Coffey (ADMISSIONS NURSE) [address] [place] [address] [id number] 0 08/31/2018 16:00:26 09/02/2018 15:43:59 Gynecologic examination 13976252 Z01.419 Z11.51 Exposure t o sexually transmissible disorder 560655306 Z20.2 Migraine 96551682 G43.90 9 HPV - Nuria n papillomavirus test positive 588284960 R87.619 Bacterial vaginosis 4197 58374 N76.0 Infection by Trichomonas 60966485 A59.9 Candidiasis of vagina 72 623178 B37.3 Dysmenorrhea 930615912 N 94.6 Body mass index 30+ - obesity 750409586 Z68.39 Female sterilization 608 82672 Z30.2 Desires tubal ligation [id number] Suraj Coffey (ADMISSIONS NURSE) [address] [place] [address] [id number] 0 07/21/2019 10:00:58 07/23/2019 15:14:10 Vaginal discharge 251745824 N89.8 Family lavonne nning surveillance 138838796 Z30.09 [id number] MAGDALENA PAYNE (ADMISSIONS NURSE) [address] [place] [address] [id number] 0 10/10/2020 15:02:26 10/26/2020 12:08:15 Routine care 856242049 Z34.90 transfer of care at 29 weeks from [facility]'s lyman. Will obtain records. Labs drawn. US ordered. Tdap administer ed. Kick counts discussed. RTC in 2 weeks. Venereal d isease screening 151304751 Z11.3 Routine screening. screening 0162 04829 Z36.9 Pt will RTC this week to complete 1 hour GCT. Sterilizat ion requested 179263515 Z30.2 Pt desires PPBTL. Pelvic and perineal pain 065961361 R10.2 Pt fitted for and provided with maternity belt. Constipation 35916274 K5 9.00 Start daily colace and fiber. Advised to increase water intake and avoid straining. [id number] Suraj Coffey (ADMISSIONS NURSE) [address] [place] [address] [id number] 0 10/24/2020 12:45:38 10/24/2020 21:17:49 Routine care 031527429 Z34.[address] reptococcus carrier [id number] 103 Z22.330 intrapartu m abx. Genital he rpes simplex type 2 536548756 A60.00 Acute urin norman tract infection 742180590 N39.0 e coli likely screening 2437 29840 Z36.9 Venereal d isease screening 026774139 Z11.3 Venereal d isease in mother complicating , childbirth AND/OR puerperium 62199142 O98.319 Sterilizat ion requested 858159798 Z30.2 Requesting tubal to coincide with induction [id number] Suraj Coffey (ADMISSIONS NURSE) [address] [place] [address] [id number] 0 11/07/2020 15:03:59 11/14/2020 04:52:13 Bacterial vaginosis 432702984 N76.0 Chlamydial infection 105 629802 A74.9 Genital he rpes simplex type [address] reptococcus carrier 7928413466 103 Z22.330 intrapartu m abx. Herpes simplex 66640677 B00.9 Sterilizat ion requested 303175775 Z30.2 Requesting tubal to coincide with induction Anemia 697747758 D64.9 Routine an tenatal care 508141884 Z34.93 [id number] Suraj Coffey (ADMISSIONS NURSE) [address] [place] [address] [id number] 0 11/23/2020 16:28:23 11/28/2020 09:50:34 Routine care 282748095 Z34.93 Genital he rpes simplex type [address] reptococcus carrier 8152241337 103 Z22.330 intrapartu m abx. Acute urin norman tract infection 420990660 N39.0 e coli likely [id number] Suraj Coffey (ADMISSIONS NURSE) [address] [place] [address] [id number] 0 11/30/2020 12:07:01 12/05/2020 10:27:39 Routine care 295637412 Z34.[address] reptococcus carrier 9473270628 103 Z22.330 intrapartu m abx. Herpes simplex 87436952 B00.9 Sterilizat ion requested 335574774 Z30.2 Requesting tubal to coincide with induction. Consent signed and in chart. Venereal d isease in mother complicating , childbirth AND/OR puerperium 99720767 O98.319 Urinary tr act infectious disease 47384919 N39.0 [id number] Suraj Coffey (ADMISSIONS NURSE) [address] [place] [address] [id number] 0 12/06/2020 15:11:22 12/07/2020 10:35:53 Routine care 387203556 Z34.[address] reptococcus carrier 8573434225 103 Z22.330 intrapartu m abx. Herpes simplex 10530264 B00.9 Sterilizat ion requested 640271188 Z30.2 Requesting tubal to coincide with induction. Consent signed and in chart. Venereal d isease in mother complicating , childbirth AND/OR puerperium 13775067 O98.319 Urinary tr act infectious disease 53753519 N39.0 [id number] MAGDALENA PAYNE (ADMISSIONS NURSE) [address] [place] [address] [id number] 0 12/12/2020 16:02:30 12/20/2020 08:47:02 Routine care 326441739 Z34.90 MAYELIN at 38 weeks. WTC/WLB reviewed. RTC in [address] Rachel. Herpes simplex 40747620 B00.9 Continue antiviral for suppressio n. Sterilizat ion requested 597940687 Z30.2 Requesting PPBTL. Consent signed and in chart. Trichomona l vaginitis in 162609300 O98.319 Positive 12/06/20. Abx sent yesterday. Advised abstinence until pp period. Partner to be tested/roberto ated. Safe sex practices discussed. [id number] Suraj CRANE (ADMISSIONS NURSE) [address] [place] [address] [id number] 0 02/05/2021 11:36:40 02/12/2021 11:49:16 care 948142007 Z39.2 on 12/19 with no complicati ons. No complaints today, mom and baby doing well. Post-pregn jefe exercises given. Family lavonne nning surveillance 926174382 Z30.09 Bilateral tubal sterilizat ion desired. Not able to do until March 2021, will provide Xulane in meantime. Sterilizat ion requested 554508872 Z30.2 Bilateral tubal sterilizat ion desired. Will schedule for March 2021. [id number] ROSARIO [facility] ([address]) [address] [place] [address] 04/05/2022 12:26:40 04/08/2022 10:28:15 Tuberculosis screening 125863119 Z11.1 lab pending. will tailor treatment accordingl y upon receipt. [id number] ANTHONY COVARRUBIAS (Adult Med) [address] [place] [address] [id number] 0 02/16/2024 08:42:02 03/02/2024 14:52:33 Depression screening 236363463 Z13.31 PHQ9- {{Negative Positive Mild* Mode rate Sever e}} (6 out of 27)Pt denies any pharmacolo gic treatment, will rescreen at next visit. Mental hea lth screening 122774576 Z13.39 GAD7- {{Negative Positive Mild Moder ate* Sever e}} ( 16 out of 21) Essential hypertension 33673121 I10 BP today: 158/104BP Goal: {{Less than 140/90* Le ss than 150/90}}BP Controlled : {{yes no*} }Healthy Weight: {{4'10= 91-118 lbs 4'11= 94-123 lbs 5'= 97-127 lbs 5'1= 100-131 lbs 5'2= 104-135 5' 3= 107-140 lbs 5'4= 110-144 lbs 5'5= 115-149 lbs 5'6= 118-154 lbs* 5'7= 121-158 lbs 5'8= 125-163 lbs 5'9= 128-168 lbs 5'10= 132-173 lbs 5'11= 136-178 lbs 6'= 140-183 lbs 6'1= 144-188 lbs 6'2= 148-193 lbs 6'3= 152-199 lbs 6'4= 156-204 lbs}}Discu ssed: Low sodium balanced diet, moderate exercise at least 3-4 times per week for an average of 40 minutes, limiting alcohol to 1 drink per day (F) or 2 drinks per day (M), and smoking cessation if currently smoking. Uncontroll ed Hypertensi on potential risks, heart attack, , stroke, kidney failure etc. Hypertensi on is the silent Killer Take your Hypertensi on medication daily keep appointmen ts stop concentrat ed sugars--fo llow 1500 meal plan exercise 50-60 minutes daily on most days see eye doctor once a year see dentist every 6 monthsNext Visit: {{1 2 3 4 5 6* 7 8 9 10 11 12} }{{week(s) * month(s) }}Start Amlodipine 10mg dailyBP cuff given todayLabs today Generalize d anxiety disorder 60995619 F41.1 ? Be physically active. Doing 30 minutes of exercise every day is good for your body and mind. ? Start slowly if you find it difficult to get started. If you already exercise, continue doing so. ? Plan something nice for yourself every day. Include activities you have enjoyed in the past. ? Get enough sleep. ? Eat a balanced diet. If you are not hungry, eat small snacks instead of large meals. ? Do not drink alcohol, use illegal drugs, or take medication s that your doctor has not prescribed . They may interfere with your treatment. ? Spend time with family and friends. It may be helpful to talk openly about your depression with people you trust. ? Take your medication s exactly as prescribed . ? Don't make important life decisions while you are depressed. Depression can change the way you think. You will be able to make better decisions when you feel better. ? Think positively . Challenge negative thoughts with statements like ? I am hopeful? ; Things will get better ; and I can ask for the help I need. Write these statements down and read them often, even if you don't believe them yet. ? Be patient with yourself. It took time for your depression to develop and it will take time for your symptoms to improve. Don't assume too much or be too hard on yourself. ? Learn everything you can about depression from written and online materials. ? Check out behavioral health classes to learn more about how to deal with depression . ? Keep the numbers for these national suicide hotlines: 8-514-882- TALK (8-901-791 -6282) and 6-119-SUIC NANCY (6-099-116 -7825). If you or someone you know talks about suicide or feels hopeless, seek help immediatel y. Pt has daily anxiety interrupti ng daily activities .Will follow up in 6 weeks.Refe rral to BH given today Gastroesop hageal reflux disease without esophagitis 300936368 K21.9 Pt has upper gastric pains and acid reflux.Pt to call in 14 days to see how her symptoms are responding . Adult [facility] th examination 464746331 Z00.00 Routine labs today- will contact pt with results [id number] ANTHONY COVARRUBIAS (Adult Med) [address] [place] [address] 04/08/2024 09:32:08 04/09/2024 15:30:50 Essential hypertension 02127120 I10 BP today: 140/80BP Goal: {{Less than 140/90* Le ss than 150/90}}BP Controlled : {{yes no*} }Healthy Weight: {{4'10= 91-118 lbs 4'11= 94-123 lbs 5'= 97-127 lbs 5'1= 100-131 lbs 5'2= 104-135 5' 3= 107-140 lbs 5'4= 110-144 lbs 5'5= 115-149 lbs 5'6= 118-154 lbs* 5'7= 121-158 lbs 5'8= 125-163 lbs 5'9= 128-168 lbs 5'10= 132-173 lbs 5'11= 136-178 lbs 6'= 140-183 lbs 6'1= 144-188 lbs 6'2= 148-193 lbs 6'3= 152-199 lbs 6'4= 156-204 lbs}}Discu ssed: Low sodium balanced diet, moderate exercise at least 3-4 times per week for an average of 40 minutes, limiting alcohol to 1 drink per day (F) or 2 drinks per day (M), and smoking cessation if currently smoking. Uncontroll ed Hypertensi on potential risks, heart attack, , stroke, kidney failure etc. Hypertensi on is the silent Killer Take your Hypertensi on medication daily keep appointmen ts stop concentrat ed sugars--fo llow 1500 meal plan exercise 50-60 minutes daily on most days see eye doctor once a year see dentist every 6 months Next Visit: {{1 2 3 4 5 6* 7 8 9 10 11 12} }{{week(s) * month(s) }}c/w Amlodipine 10mg dailyStart Losartan 25mg daily Generalize d anxiety disorder 32853534 F41.1 ? Be physically active. Doing 30 minutes of exercise every day is good for your body and mind. ? Start slowly if you find it difficult to get started. If you already exercise, continue doing so. ? Plan something nice for yourself every day. Include activities you have enjoyed in the past. ? Get enough sleep. ? Eat a balanced diet. If you are not hungry, eat small snacks instead of large meals. ? Do not drink alcohol, use illegal drugs, or take medication s that your doctor has not prescribed . They may interfere with your treatment. ? Spend time with family and friends. It may be helpful to talk openly about your depression with people you trust. ? Take your medication s exactly as prescribed . ? Don't make important life decisions while you are depressed. Depression can change the way you think. You will be able to make better decisions when you feel better. ? Think positively . Challenge negative thoughts with statements like ? I am hopeful? ; Things will get better ; and I can ask for the help I need. Write these statements down and read them often, even if you don't believe them yet. ? Be patient with yourself. It took time for your depression to develop and it will take time for your symptoms to improve. Don't assume too much or be too hard on yourself. ? Learn everything you can about depression from written and online materials. ? Check out behavioral health classes to learn more about how to deal with depression . ? Keep the numbers for these national suicide hotlines: 1-242-441- TALK (8-417-812 -0186) and 6-347-SUIC NANCY (9-624-850 -6499). If you or someone you know talks about suicide or feels hopeless, seek help immediatel y. Pt did not make appt with counseling and states she does not want it at this time.Is taking medication once daily- discussed taking medication BIDRTC 6 weeksC/W hydroxyzin e 25mg BID-TID Depression screening 171 603039 Z13.31 PHQ9- {{Negative * Positive Mild Mode rate Sever e}} (1 out of 27) Mental hea lth screening 174953279 Z13.39 GAD7- {{Negative Positive Mild* Mode rate Sever e}} (8 out of 21) Obesity 620285198 E66.81 2 BMI 38.1 Health Concerns Section Related Observation LastModified by Organization Detai ls LastModified Time None Recorded Concern Status LastModified by Organization Details LastModified Time None Recorded Advance Directives Directive N: Payers Encounter Date Sequence Insurance Name Policy Number Policy Pinzon Covered Member ID Pinzon Member ID Guarantor Name 12/12/2020 1 [facility] ON OR AFTER 09/28/20 (MEDICAID REPLACEMENT - HMO) Scott Henderson [id number] Scott Henderson 02/05/2021 1 [facility] - DOS ON OR AFTER 20 (MEDICAID REPLACEMENT - HMO) Scott Henderson [id number] Scott Santiago 04/05/2022 1 [facility] - DOS ON OR AFTER 20 (MEDICAID REPLACEMENT - HMO) Scott Santiago [id number] Scott Santiago 02/16/2024 1 [facility] - DOS ON OR AFTER 20 (MEDICAID REPLACEMENT - HMO) Scott Santiago [id number] Scott Santiago 04/08/2024 1 [facility] - DOS ON OR AFTER 20 (MEDICAID REPLACEMENT - HMO) Scott Dislaoten [id number] Scott Santiago Notes Date Note Type Note Provider Name and Address Organization Details Recorded Time 12/12/2020 text/html 25yo with history of GBS, HSV, conrado, abnormal pap, presenting for MAYELIN at 38w. She was transferred to our care from [facility] at 29w. She has no concerns today. She reports irregular contractions. Denies LOF, bleeding, abnormal discharge. +FM. MAGDALENA PAYNE Attn: [address] [place], [address], [facility] 12/20/2020 07:31:39 02/05/2021 text/html VisitReported bypatient.Onset/Kyler ing:date of delivery: (12/19/20) Quality: Context:complicatio ns of : none; complications of labor: none; complications: none; feeding choice: bottle Associated Symptoms:no abnormal bleeding; no pelvic pain; no constipation; no fecal incontinence; no dysuria; no urinary incontinence; no fever 25 yo presents for PP visit. c/b BV, HSV, conrado, abnormal pap. No complaints today. Delivery done by Dr. Elkins at [facility] on 12/19. Desires bilateral tubal sterilization. Suraj ba, [place] [facility] 02/05/2021 13:52:22 04/05/2022 text/html Pt presents to clinic requesting an TB screening. Pt denies nausea, vomiting, fever, chills, rash, cough, CP, SOb, MANCINI, diarrhea, constipation and dysuria. ROSARIO Florian-BC Attn: [address]ing[address] [facility], [place], [address], [facility] 04/05/2022 12:48:19 02/16/2024 text/html A 28 y.o F is here to establish care. Pt states she was told by her OBGYN that she has high blood pressure and was sent to the ER for headaches she was having. The headaches were lasting 3-4 hours daily. She said the medication they gave her helped but that she ran out and has been out for the last 30 days and the headaches are coming back. She would like something to help the headaches. Pt states she is having daily anxiety. She said she has had some recent deaths in the family and that she is now always thinking about life any worrying. She says it keeps her from going out and doing activities, she will get to an activity and decide against actually going and instead go home. She says she doesn't leave the house much due to the anxiety. She denies being depressed and feels its more anxiety. She says her OBGYN gave her medication for anxiety and depression, she doesn't know what it is except that it was a pill, and she took it for two weeks, but states it made her depressed when she wasn't before and didn't help with the anxiety. She doesn't want to be on an anti-depressant, but wants to have something to help with her daily anxiety. Pt states she is having intermittent gas and abdominal pain. She says the pain is in the upper stomach area lasts for a few hours, and happens every 3-4 days. She says she does get some acid reflux and doesn't know if that is related. She says she uses a heating pad to help with the abdominal pain and a massager and when using that she notices it makes her pass gas. She doesn't know what is going on and would like to try and stop the abdominal discomfort. Pt denies chest pain, SOB, CABRERA, N/V/D. MARICEL SPRAGUE PA-C Attn: [address] [facility], [place], [address], [facility] 02/16/2024 09:51:15 04/08/2024 text/html Hypertension F/UReported bypatient.Associate d Symptoms:no dizziness; no lightheadedness; no chest pain; no shortness of breath; no palpitations; no edema; no calf pain with exertion Lifestyle:limiting/ avoiding salt;not exercising regularly Medications:no side effects from medication;not taking medications as directed 28 y/o AA F here for f/u. Pt states she has been feeling better since taking medication for both HTN and anxiety. She has not been taking medications as prescribed, states she forgets to take them daily. Denies SI/HI, SOB, CABRERA, N/V/D. Pt states she called to get scheduled at [facility] but they told her to call every morning to be scheduled and she did not feel like doing that, she does not think she wants to do that at this time and wants to just do medication for now. MARICEL SPRAGUE PA-C Attn: [address] [place], [address], [facility] 04/08/2024 10:27:36 OBGyn Episode Ob Episode Information Episode Created Date Number of Fetuses Patient Bloodtype Patient rh Status Prepregnancy Weight lbs Domestic Partner Domestic Partner Phone Father Name Production Line Manager Status 10/10/19 21 1 B Positive Freedom CLOSED Fetus Data First Name Last Name Admitted to NICU Weight (g) Sex Living Outcome Pediatric Complications Fetus ID Race Codes Race Delivery Type Isauro Karina e Cherry ny false 3572.03 7 F true Full Term None [id number] [id number] Black or Afric an Ameri can Standard Vaginal Delivery Problems Problem Notes Baby girl, name Lilly, bottle feeding, natural vaginal delivery, 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 provided, PPBC BTL Problem Name Start Date End Date Resolution Snomed Code Not e Group B Streptococcus carrier 10/19/2020 [id number] Urogenital infection by Trichomonas vaginalis 12/11/2020 [id number] Genital herpes simplex type 2 10/19/2020 [id number] Anemia 10/19/2020 608424019 Urinary tract infectious disease 11/30/2020 43636992 Sterilization requested 10/10/2020 [id number] [id number] pptl Large for gestation age fetus [id number] Oligohydramnios [id number] opal ction of labor Nabeel Calculation Initial Nabeel Date Initial Exam Date Initial Exam Provider Initial Ultrasound Date Last Menstrual Period Date Ultra Sound Weeks Gestation 12/26/2020 10/10/2020 [email or web address] 08/02/2020 03/13/2020 19 Eighteen To Twenty Week Nabeel Update Ultra Sound Date Fundal Height At Umbil Quickening Date Ultra Sound Latest Weeks Gestation Final Nabeel Confirmed By Final Nabeel Confirmed Date Final Nabeel Date Ultra Sound Latest Days Gestation 08/03/19 21 19 [email or web address] 11/07/2020 021 1 Pre-linwood Flowsheet Flowsheet Date 10/10/2020 Brewster Score Blood Edema Fundus Height Fundus Units Glucose Ketones Leukocytes Nitrite Labor Signs Protein Cervic Dilation Cervic Effacement Cervic Station trace none 29 wks none negative none trace Type Weight in lbs Pre/Post Dialysis Refused With clothes 214.435835381854 BP Diastolic BP Location Tested BP Systolic BP Type 66 108 sitting Fetus Heart Rate Present A 144 Present Fetus Movement A Yes Comments transfer of care at 29 weeks from [facility]'s lyman. Will obtain records. Labs drawn. US ordered. Tdap administered. Kick counts discussed. Flowsheet Date 10/24/2020 Brewster Score Blood Edema Fundus Height Fundus Units Glucose Ketones Leukocytes Nitrite Labor Signs Protein Cervic Dilation Cervic Effacement Cervic Station trace none 31 wks none negative none neg Type Weight in lbs Pre/Post Dialysis Refused With clothes 217.784612213995 BP Diastolic BP Location Tested BP Systolic BP Type 78 112 sitting Fetus Heart Rate Present A 142 Present Fetus Movement A Yes Comments US, 1hr GTT, tdap, keflex fo r UTI Flowsheet Date 11/07/2020 Brewster Score Blood Edema Fundus Height Fundus Units Glucose Ketones Leukocytes Nitrite Labor Signs Protein Cervic Dilation Cervic Effacement Cervic Station neg none 33 wks none negative none neg Type Weight in lbs Pre/Post Dialysis Refused Weight 219.375576932741 BP Diastolic BP Location Tested BP Systolic BP Type 72 120 sitting Fetus Heart Rate Present A 144 Present Fetus Movement A Yes Comments check us results see ZECHARIAH 2 we eks Flowsheet Date 11/23/2020 Brewster Score Blood Edema Fundus Height Fundus Units Glucose Ketones Leukocytes Nitrite Labor Signs Protein Cervic Dilation Cervic Effacement Cervic Station neg none 35 wks none negative none neg Type Weight in lbs Pre/Post Dialysis Refused With clothes 222.45495026912 BP Diastolic BP Location Tested BP Systolic BP Type 76 116 sitting Fetus Heart Rate Present A 145 Present Fetus Movement A Yes Comments uti rx see weekly/36w labs n ext Flowsheet Date 11/30/2020 Brewster Score Blood Edema Fundus Height Fundus Units Glucose Ketones Leukocytes Nitrite Labor Signs Protein Cervic Dilation Cervic Effacement Cervic Station neg none 36 wks none negative Stafford Gupta neg 0cm 80% 0 Type Weight in lbs Pre/Post Dialysis Refused With clothes 224.520408591753 BP Diastolic BP Location Tested BP Systolic BP Type 84 118 sitting Fetus Heart Rate Present A 150 Present Fetus Movement A Yes Comments WTC/WLB. Cultures performed today. Flowsheet Date 12/06/2020 Brewster Score Blood Edema Fundus Height Fundus Units Glucose Ketones Leukocytes Nitrite Labor Signs Protein Cervic Dilation Cervic Effacement Cervic Station neg none 38 cm none negative none neg 0cm 80% - 4 Type Weight in lbs Pre/Post Dialysis Refused With clothes 220.803943890742 BP Diastolic BP Location Tested BP Systolic BP Type 80 122 sitting Fetus Heart Rate Present A 148 Present Fetus Movement A Yes Comments See ZECHARIAH in 1 week. Flowsheet Date 12/12/2020 Brewster Score Blood Edema Fundus Height Fundus Units Glucose Ketones Leukocytes Nitrite Labor Signs Protein Cervic Dilation Cervic Effacement Cervic Station 1+ none 37 cm none negative Uterine Contract ions trace 0cm 80% -3 Type Weight in lbs Pre/Post Dialysis Refused With clothes 228.549465105563 BP Diastolic BP Location Tested BP Systolic BP Type 70 104 sitting Fetus Heart Rate Present A 148 Present Fetus Movement A Yes Comments MAYELIN at 38 weeks. WTC/WLB rev iewed. Pt educated on trich and conrado treatment. RTC in [address] Rachel. Flowsheet Date 02/05/2021 Brewster Score Blood Edema Fundus Height Fundus Units Glucose Ketones Leukocytes Nitrite Labor Signs Protein Cervic Dilation Cervic Effacement Cervic Station Type Weight in lbs Pre/Post Dialysis Refused With clothes 212.65016776932 BP Diastolic BP Location Tested BP Systolic BP Type 80 120 sitting Fetus Heart Rate Present Fetus Movement Comments Menstrual History Last Menstrual Date Menses Monthly On Bcp Conception Prior Menses Frequency Hcg Plus Date Menarche Onset Age 1203/13/2020 true false Genetic Screening And Infection History Question Response Note Patient's Age Will Be 35 Years Or Older At Estim ated Date of Delivery false Thalassemia (Iranian, Citizen Of [place], Mediterranean, Or Background): MCV < 80 false Neural Tube Defect (Meningomyelocele, Spina Bifi da, Or Anencephaly) false Congenital Heart Defect false Down Syndrome false Jorge-Sachs (eg, Yarsani, Cajun, Turkish-Croatian) f alse Андрей Disease false Sickle Cell Disease Or Trait () false Hemophilia Or Other Blood Disorders false Muscular Dystrophy false Cystic Fibrosis false Arias's Chorea false Mental Retardation/Autism false If Yes, Was Person Tested For [...] Or Partner Has History Of Genital Herpes true pt Rash Or Viral Illness Since Last Menstrual Perio d false History Of STD, Gonorrhea, Chlamydia, HPV, Syphi lis false Other Infection History true GBS History of HIV false History of Hepatitis false Prior GBS-infected child false Delivery Information Delivery Date Delivery Type Labor Anesthesia Weeks Gestation Incision Type Labor Labor Length Hrs Delivered By Post Complications Tubal Sterilization Discharge Date Comments 1 Sponta neous None [address] El[address] None false 12/21/2020 [place] us delivery, delivered by nurse/Dr. Elkins. Discharge Information Feeding Method Contraceptive Method Maternal HG B and HCT Levels Bottle Desires tubal sterilization Ob Episode Information Episode Created Date Number of Fetuses Patient Bloodtype Patient rh Status Prepregnancy Weight lbs Domestic Partner Domestic Partner Phone Father Name Production Line Manager Status 06/22/19 15 1 B Positive 197 [place] CLOSED Fetus Data First Name Last Name Admitted to NICU Weight (g) Sex Living Outcome Pediatric Complications Fetus ID Race Codes Race Delivery Type Kory Raymond an true 3175.14 4 M true Full Term Baby swolled amiotic fluids [id number] [id number] Afric an Ameri can Vaginal Problems Problem Notes Problem Name Start Date End Date Resolution Snomed Code Not e Bacterial vaginosis 020777683 Acute urinary tract infection 564330961 Candidiasis 51782846 Blood glucose outside reference range 783650141 Chlamydial infection 014798229 Constipation 41283246 Gastroesophageal reflux disease 437313937 Gonorrhea 79534143 Venereal disease in mother complicating , childbirth AND/OR puerperium 71152150 state 59070653 care 370076615 HPV - Human papillomavirus t est positive 133918110 Nabeel Calculation Initial Nabeel Date Initial Exam Date Initial Exam Provider Initial Ultrasound Date Last Menstrual Period Date Ultra Sound Weeks Gestation 01/03/2015 06/21/2014 purchasing buyer 06/17/2014 03/23/2014 11 Eighteen To Twenty Week Nabeel Update Ultra Sound Date Fundal Height At Umbil Quickening Date Ultra Sound Latest Weeks Gestation Final Nabeel Confirmed By Final Nabeel Confirmed Date Final Nabeel Date Ultra Sound Latest Days Gestation 0 [email or web address] 12/18/2014 015 0 Pre-[place] Flowsheet Flowsheet Date 06/21/2014 Brewster Score Blood Edema Fundus Height Fundus Units Glucose Ketones Leukocytes Nitrite Labor Signs Protein Cervic Dilation Cervic Effacement Cervic Station neg none 12 wks none negative none neg 0cm 0% - 4 Type Weight in lbs Pre/Post Dialysis Refused 197.769723872424 BP Diastolic BP Location Tested BP Systolic BP Type 84 R arm 124 sitting Fetus Heart Rate Present A Present Fetus Movement A No Comments new ob visit Flowsheet Date 07/19/2014 Brewster Score Blood Edema Fundus Height Fundus Units Glucose Ketones Leukocytes Nitrite Labor Signs Protein Cervic Dilation Cervic Effacement Cervic Station neg none 16 wks none negative none neg Type Weight in lbs Pre/Post Dialysis Refused 187.797749313550 BP Diastolic BP Location Tested BP Systolic BP Type 60 R arm 108 sitting Fetus Heart Rate Present A 140 Present Fetus Movement A Yes Comments Concerned about taking Penic illin and vitamin at same time Flowsheet Date 08/16/2014 Brewster Score Blood Edema Fundus Height Fundus Units Glucose Ketones Leukocytes Nitrite Labor Signs Protein Cervic Dilation Cervic Effacement Cervic Station neg none none negative none neg Type Weight in lbs Pre/Post Dialysis Refused 183.015566235249 BP Diastolic BP Location Tested BP Systolic BP Type 74 106 sitting Fetus Heart Rate Present A 139 Fetus Movement A Yes Comments boy/uti zpak/hx gbs Flowsheet Date 10/05/2014 Brewster Score Blood Edema Fundus Height Fundus Units Glucose Ketones Leukocytes Nitrite Labor Signs Protein Cervic Dilation Cervic Effacement Cervic Station neg none 27 cm none negative none neg Type Weight in lbs Pre/Post Dialysis Refused 193.71741670725 BP Diastolic BP Location Tested BP Systolic BP Type 62 112 sitting Fetus Heart Rate Present A 138 Present Fetus Movement A Yes Comments Flowsheet Date 11/02/2014 Brewster Score Blood Edema Fundus Height Fundus Units Glucose Ketones Leukocytes Nitrite Labor Signs Protein Cervic Dilation Cervic Effacement Cervic Station neg none 31 wks none negative none neg Type Weight in lbs Pre/Post Dialysis Refused 197.976909895918 BP Diastolic BP Location Tested BP Systolic BP Type 66 112 sitting Fetus Heart Rate Present A 144 Present Fetus Movement A Yes Comments mayelin Flowsheet Date 11/24/2014 Brewster Score Blood Edema Fundus Height Fundus Units Glucose Ketones Leukocytes Nitrite Labor Signs Protein Cervic Dilation Cervic Effacement Cervic Station neg none 34 wks none negative none trace Type Weight in lbs Pre/Post Dialysis Refused 199.588195437439 BP Diastolic BP Location Tested BP Systolic BP Type 62 114 sitting Fetus Heart Rate Present A 144 Present Fetus Movement A Yes Comments jaycean male, circ, breast, ncb, [place], 36 wks next, [facility] [place] 12/29/14, ppbc DMPA Flowsheet Date 12/08/2014 Brewster Score Blood Edema Fundus Height Fundus Units Glucose Ketones Leukocytes Nitrite Labor Signs Protein Cervic Dilation Cervic Effacement Cervic Station neg none 36 cm none negative Stafford Gupta 1+ 0cm 0% -3 Type Weight in lbs Pre/Post Dialysis Refused 203.62244559796 BP Diastolic BP Location Tested BP Systolic BP Type 64 110 Fetus Heart Rate Present A 140 Present Fetus Movement A Yes Comments 36 labs c+s US Flowsheet Date 12/15/2014 Brewster Score Blood Edema Fundus Height Fundus Units Glucose Ketones Leukocytes Nitrite Labor Signs Protein Cervic Dilation Cervic Effacement Cervic Station neg none 36 cm none negative none neg 0cm 80% - 2 Type Weight in lbs Pre/Post Dialysis Refused 205.817195526850 BP Diastolic BP Location Tested BP Systolic BP Type 76 114 sitting Fetus Heart Rate Present A 152 Present Fetus Movement A Yes Comments desires MIL after next visit Flowsheet Date 12/26/2014 Brewster Score Blood Edema Fundus Height Fundus Units Glucose Ketones Leukocytes Nitrite Labor Signs Protein Cervic Dilation Cervic Effacement Cervic Station trace none 39 cm none negative none neg 1cm 80% -1 Type Weight in lbs Pre/Post Dialysis Refused 206.877951912558 BP Diastolic BP Location Tested BP Systolic BP Type 76 112 sitting Fetus Heart Rate Present A 130 Present Fetus Movement A Yes Comments MIL in am Flowsheet Date 02/13/2015 Brewster Score Blood Edema Fundus Height Fundus Units Glucose Ketones Leukocytes Nitrite Labor Signs Protein Cervic Dilation Cervic Effacement Cervic Station Type Weight in lbs Pre/Post Dialysis Refused 193.06287728458 BP Diastolic BP Location Tested BP Systolic BP Type 98 R arm 124 sitting Fetus Heart Rate Present Fetus Movement Comments Menstrual History Last Menstrual Date Menses Monthly On Bcp Conception Prior Menses Frequency Hcg Plus Date Menarche Onset Age 1203/23/2014 true false 21 5 12 Genetic Screening And Infection History Question Response Note Patient's Age Will Be 35 Years Or Older At Estim ated Date of Delivery false Thalassemia (Iranian, Citizen Of [place], Mediterranean, Or Background): MCV < 80 false Neural Tube Defect (Meningomyelocele, Spina Bifi da, Or Anencephaly) false Congenital Heart Defect false Down Syndrome false Jorge-Sachs (eg, Yarsani, Cajun, Turkish-Croatian) f alse Андрей Disease false Sickle Cell Disease Or Trait () false Hemophilia Or Other Blood Disorders false Muscular Dystrophy false Cystic Fibrosis false [place]'s Chorea false Mental Retardation/Autism false If Yes, Was Person Tested For [...] Of STD, Gonorrhea, Chlamydia, HPV, Syphi lis true Other Infection History false Plans and Education First Trimester Discussed Date Discussion Item Discussion Note Discuss ed By 12/18/2014 Anticipated course of care [facility] 12/18/2014 Alcohol [facility] 12/18/2014 Intimate partner violence [facility] 12/18/2014 Environmental/work hazards [facility] 12/18/2014 Screening for aneuploidy [facility] 12/18/2014 Nutrition counseling ; special diet; dietary precautions (mercury, listeriosis) [facility] 12/18/2014 Childbirth classes/hospital facilities [facility] 12/18/2014 HIV and other routine tests [facility] 12/18/2014 Risk factors identif ied by history [facility] 12/18/2014 Weight gain counseling [facility] 12/18/2014 Exercise [facility] 12/18/2014 Teratogens [facility] 12/18/2014 Use of any medicatio ns (including supplements, vitamins, herbs, or OTC drugs) [facility] 12/18/2014 [facility] 12/18/2014 Sexual activity [facility] 12/18/2014 Tobacco/smoking cess ation counseling (ask, advise, assess, assist, and arrange) [facility] 12/18/2014 Illicit/recreational drugs [facility] 12/18/2014 Dental care [facility] 12/18/2014 Travel [facility] 12/18/2014 Seat belt use [facility] 12/18/2014 Indications for ultrasonography [facility] 12/18/2014 Avoidance of saunas or hot tubs [facility] 12/18/2014 Toxoplasmosis precautions (cats/raw meat) [facility] Second Trimester Discussed Date Discussion Item Discussion Note Discuss ed By 12/18/2014 Selecting a care provider [facility] 12/18/[address] anning/tubal sterilization [facility] 12/18/2014 Depression screening (when indicated) [facility] 12/18/2014 [facility] 12/18/2014 Signs and symptoms of labor [facility] 12/18/2014 Intimate partner violence [facility] 12/18/2014 Tobacco/smoking cess ation counseling (ask, advise, assess, assist, and arrange) [facility] Third Trimester Discussed Date Discussion Item Discussion Note Discuss ed By 12/18/2014 Intimate partner violence [facility] 12/18/2014 Anesthesia plans [facility] 12/18/2014 [place] education (n ewborn screening, jaundice, SIDS/safe sleeping position, car seat) [facility] 12/18/2014 Circumcision [facility] 12/18/2014 Postterm counseling [facility] 12/18/2014 movement monitoring [facility] 12/18/2014 [facility] 12/18/2014 Labor signs [facility] 12/18/2014 [facility] 12/[facility]/2014 Family medical leave or disability forms [facility] 12/18/2014 Tobacco/smoking cess ation counseling (ask, advise, assess, assist, and arrange) [facility] 12/18/2014 Trial of labor after (TOLAC) counseling [facility] 12/18/2014 Signs and symptoms of preeclampsia [facility] Delivery Information Delivery Date Delivery Type Labor Anesthesia Weeks Gestation Incision Type Labor Labor Length Hrs Delivered By Post Complications Tubal Sterilization Discharge Date Comments 5 Sponta neous None 39 Other 12/28/2014 [facility] radha lima Discharge Information Feeding Method Contraceptive Method Maternal HG B and HCT Levels Combination Ob Episode Information Episode Created Date Number of Fetuses Patient Bloodtype Patient rh Status Prepregnancy Weight lbs Domestic Partner Domestic Partner Phone Father Name Production Line Manager Status 06/22/19 15 1 CLOSED Fetus Data First Name Last Name Admitted to NICU Weight (g) Sex Living Outcome Pediatric Complications Fetus ID Race Codes Race Delivery Type 3600.38 65 M Full Term [id number] Standard Vaginal Delivery Nabeel Calculation Initial Nabeel Date [...] Complications Tubal Sterilization Discharge Date Comments 8 None 39 24 Aaron Discharge Information Feeding Method Contraceptive Method Maternal HG B and HCT Levels Ob Episode Information Episode Created Date Number of Fetuses Patient Bloodtype Patient rh Status Prepregnancy Weight lbs Domestic Partner Domestic Partner Phone Father Name Production Line Manager Status 02/14/20 15 1 DELETED Nabeel Calculation Initial Nabeel Date Initial Exam [...] Complications Tubal Sterilization Discharge Date Comments 5 None 40 Discharge Information Feeding Method Contraceptive Method Maternal HG B and HCT Levels Ob Episode Information Episode Created Date Number of Fetuses Patient Bloodtype Patient rh Status Prepregnancy Weight lbs Domestic Partner Domestic Partner Phone Father Name Production Line Manager Status 11/29/19 16 1 B Positive 176 [place] CLOSED Fetus Data First Name Last Name Admitted to NICU Weight (g) Sex Living Outcome Pediatric Complications Fetus ID Race Codes Race Delivery Type CaLandon la Woote n false 3572.03 7 F true Full Term [id number] 2054-5 Black or Afric an Ameri can Vaginal Problems Problem Notes having a baby girl, CaSenthil Santiago, combo breast bottle feeding, assistant store manager trainee to be decided, probably marilyn montero. vaginal with epidural for pain relief, PPBC is going to be tubal ligation. papers signed. 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 ANIMAL ATTENDANT 02/26/2016 mds Problem Name Start Date End Date Resolution Snomed Code Not e Bacterial vaginosis 977469587 HPV - Human papillomavirus t est positive 975495651 Herpes simplex 16394576 Candidiasis of vagina 89698613 Nabeel Calculation Initial Nabeel Date Initial Exam Date Initial Exam Provider Initial Ultrasound Date Last Menstrual Period Date Ultra Sound Weeks Gestation 03/03/2016 11/29/2015 [email or web address] 12/21/2015 05/28/2015 28 Eighteen To Twenty Week Nabeel Update Ultra Sound Date Fundal Height At Umbil Quickening Date Ultra Sound Latest Weeks Gestation Final Nabeel Confirmed By Final Nabeel Confirmed Date Final Nabeel Date Ultra Sound Latest Days Gestation 0 [email or web address] 01/05/2016 03/03/20 16 0 Pre- Flowsheet Flowsheet Date 11/29/2015 Brewster Score Blood Edema Fundus Height Fundus Units Glucose Ketones Leukocytes Nitrite Labor Signs Protein Cervic Dilation Cervic Effacement Cervic Station neg none 25 none negative none trace 0cm 0% -4 Type Weight in lbs Pre/Post Dialysis Refused 201.223917603586 BP Diastolic BP Location Tested BP Systolic BP Type 70 110 sitting Fetus Heart Rate Present A 145 Fetus Movement A Yes Comments Flowsheet Date 01/05/2016 Brewster Score Blood Edema Fundus Height Fundus Units Glucose Ketones Leukocytes Nitrite Labor Signs Protein Cervic Dilation Cervic Effacement Cervic Station neg none 32 none negative none 1+ Type Weight in lbs Pre/Post Dialysis Refused 203.40033873215 BP Diastolic BP Location Tested BP Systolic BP Type 66 108 sitting Fetus Heart Rate Present A 146 Fetus Movement A Yes Comments PTL PRECAUTIONS. REFUSED TO DO 1 HOUR GTT. cOUNSELED ABOUT RISKS OF GESTATIONAL DIABETES INCLUDING BIG BABY, SHOULDER DYSTOSIA, . Flowsheet Date 01/30/2016 Brewster Score Blood Edema Fundus Height Fundus Units Glucose Ketones Leukocytes Nitrite Labor Signs Protein Cervic Dilation Cervic Effacement Cervic Station neg none 34 cm none negative none trace 0cm 0% -4 Type Weight in lbs Pre/Post Dialysis Refused 205.761135029869 BP Diastolic BP Location Tested BP Systolic BP Type 70 120 sitting Fetus Heart Rate Present A 154 Fetus Movement A Yes Comments PTL, Preeclampsia precaution s discussed precautions discussed. GBS, NUSwab done today. C/O burning with urination.UA large LE. wiLL prescribe macrobid and send urine for C & SRTC in 1 week Flowsheet Date 02/07/2016 Brewster Score Blood Edema Fundus Height Fundus Units Glucose Ketones Leukocytes Nitrite Labor Signs Protein Cervic Dilation Cervic Effacement Cervic Station neg 1+ 33 cm none moderate none 1+ Type Weight in lbs Pre/Post Dialysis Refused 204.440511766677 BP Diastolic BP Location Tested BP Systolic BP Type 72 118 sitting Fetus Heart Rate Present A 152 Present Fetus Movement A Yes Comments MAYELIN in 1 wk Flowsheet Date 02/19/2016 Brewster Score Blood Edema Fundus Height Fundus Units Glucose Ketones Leukocytes Nitrite Labor Signs Protein Cervic Dilation Cervic Effacement Cervic Station neg none 38 cm none small none 1+ 2cm 50% -3 Type Weight in lbs Pre/Post Dialysis Refused 206.679622321529 BP Diastolic BP Location Tested BP Systolic BP Type 68 122 sitting Fetus Heart Rate Present A 144 Present Fetus Movement A Yes Comments Labor precautions discussed Flowsheet Date 02/26/2016 Brewster Score Blood Edema Fundus Height Fundus Units Glucose Ketones Leukocytes Nitrite Labor Signs Protein Cervic Dilation Cervic Effacement Cervic Station neg none 36 cm none negative none neg 1cm 80% 0 Type Weight in lbs Pre/Post Dialysis Refused 204.418041858667 BP Diastolic BP Location Tested BP Systolic BP Type 72 100 sitting Fetus Heart Rate Present A 143 Present Fetus Movement A Yes Comments Wants MIL Menstrual History Last Menstrual Date Menses Monthly On Bcp Conception Prior Menses Frequency Hcg Plus Date Menarche Onset Age 0205/28/2015 false true 6 13 Genetic Screening And Infection History Question Response Note Patient's Age Will Be 35 Yea rs Or Older At Estimated Date of Delivery false Thalassemia (Iranian, Citizen Of [place], Mediterranean, Or Background): MCV < 80 false Neural Tube Defect (Meningom yelocele, Spina Bifida, Or Anencephaly) false Congenital Heart Defect false Down Syndrome false Jorge-Sachs (eg, Yarsani, Cajun, Turkish-Croatian) f alse Андрей Disease false Sickle Cell Disease Or Trait () false Hemophilia Or Other Blood Disorders false Muscular Dystrophy false Cystic Fibrosis false Arias's Chorea false Mental Retardation/Autism false If Yes, Was Person Tested For [...] Or Partner Has History Of Genital Herpes true Rash Or Viral Illness Since Last Menstrual Perio d false History Of STD, Gonorrhea, Chlamydia, HPV, Syphi lis true ct, tv, ng Other Infection History true bv, ca Plans and Education First Trimester Discussed Date Discussion Item Discussion Note Discuss ed By 11/29/2015 Anticipated course of care radha 11/29/2015 Alcohol radha 11/29/2015 Intimate partner violence sv philippyylana 11/29/2015 Environmental/work hazards s cecilia 11/29/2015 Screening for aneuploidy judy chowdhury 11/29/2015 Nutrition counseling ; special diet; dietary precautions (mercury, listeriosis) [facility] 11/29/2015 Childbirth classes/hospital facilities [facility] 11/29/2015 HIV and other routine tests [facility] 11/29/2015 Risk factors identif ied by history [facility] 11/29/2015 Weight gain counseling [facility] 11/29/2015 Exercise [facility] 11/29/2015 Teratogens [facility] 11/29/2015 Use of any medicatio ns (including supplements, vitamins, herbs, or OTC drugs) [facility] 11/29/2015 [facility] 11/29/2015 Sexual activity [facility] 11/29/2015 Tobacco/smoking cess ation counseling (ask, advise, assess, assist, and arrange) [facility] 11/29/2015 Illicit/recreational drugs s [facility] 11/29/2015 Dental care [facility] 11/29/2015 Travel [facility] 11/29/2015 Seat belt use [facility] 11/29/2015 Indications for ultrasonography [facility] 11/29/2015 Avoidance of saunas or hot tubs [facility] 11/29/2015 Toxoplasmosis precautions (cats/raw meat) [facility] Second Trimester Discussed Date Discussion Item Discussion Note Discuss ed By 11/29/2015 Selecting a care provider [facility] 11/29/[address]ning/tubal sterilization SHE WANTS dePO PROVERA [facility] 11/29/2015 Depression screening (when indicated) [facility] 11/29/2015 Signs and symptoms o f labor [facility] 11/29/2015 [facility]/2015 Tobacco/smoking cess ation counseling (ask, advise, assess, assist, and arrange) [facility] Third Trimester Discussed Date Discussion Item Discussion Note Discuss ed By 11/29/2015 [facility] 11/29/2015 Anesthesia plans epidural [facility] 11/29/2015 [place] education (n ewborn screening, jaundice, SIDS/safe sleeping position, car seat) [facility] 11/29/2015 Circumcision [facility] 11/29/2015 [facility]2015 [facility] 11/29/2015 [facility] 11/29/2015 [facility] 11/29/2015 depression [facility] 11/29/2015 Family medical leave or disability forms [facility] 11/29/2015 Tobacco/smoking cess ation counseling (ask, advise, assess, assist, and arrange) [facility] 11/29/2015 Signs and symptoms of preeclampsia [facility] Delivery Information Delivery Date Delivery Type Labor Anesthesia Weeks Gestation Incision Type Labor Labor Length Hrs Delivered By Post Complications Tubal Sterilization Discharge Date Comments 6 Sponta [facility] id[facility] 39[address] Etienne true Discharge Information Feeding Method Contraceptive Method Maternal HG B and HCT Levels Combination Tubal
--- OUTSIDE RECORDS SUMMARY | 2024-04-28 16:46 | XMS_ITS | Patient Health Summary ---
Author Organization [facility] [address] Address [address] [place] [address] Care Team Providers Care Site Reliability Engineer Name Role Phone Unavailable Primary Care Provider Unavailabl e Note from [facility] [address] [facility],non-owned Affiliates and Associated Physician Practices is amultiple site organization consisting of ambulatory clinics and hospital sitesin [place], [place], [place] and [place]. This disclosure is being madepursuant to the Care Everywhere program and may not contain all information available regarding this patient. Last updated 17.[facility] [address] Allergies No known active allergies Medications * Be aware that medications may not be up to date on this document. Alwaysverify current medications with the patient. 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 Anatomical Region Laterality Modality Other 08/29/2020 2:02 PM CDT Narrative 08/29/2020 5:41 PM CDT ? [facility] ? [facility] ?PHONE: ??FAX: Pat. Name: ?SCOTT HENDERSON No: ?[id number] Study Date: ?? 08/29/2020 ??2:02pm , Age: ? 1995, 25 Pregnancies: ?? 4, Para 3 Height: ? 66 in Weight: ? 204 lb LMP: ?Unknown GA by Base: ?? 23w0d ?? EVELYN: 12/26/2020 GA by US: ? 23w5d ?? EVELYN: 12/21/2020 GA Selected: ??23w0d (From [facility]) EVELYN: ?12/26/2020 Referring MD: Rivas Schmidt MD Crosstie Inspector: ??Fany Bustillos RDMS CPT4: ? 10824 BMI: ?32.92 Hist/Ind: ? Bleeding in 2nd trimester, subchorionic bleed ?AFP: (elevated) MoM 2.67 ?Complete Anatomy ?LR NIPT MEASUREMENTS & AGE ? GROWTH EVALUATION Measurement ??GA ? Range ? Srce %for GA Ratios ----- ---- ------- BPD ??5.9 cm 24w0d ([id number]) Hadl BPD 79% FL/BPD 0.75 (0.71 - 0.87) HC ??21.8 cm 23w6d (47t2l-76l7a) Hadl HC ??68% FL/AC ??0.24 (0.20 - 0.24) AC ??18.6 cm 23w3d (52r4p-33l9h) Hadl AC ??52% HC/AC ??1.17 (1.03 - 1.22) FL ?? 4.4 cm 24w3d (73q6i-11a1b) Hadl FL ??82% CI ? 0.76 (0.70 - 0.86) HL ?? 4.1 cm 24w5d (70x7r-98z4s) Lonnie HL ??79% GA for sonogram 23w5d (64q4b-51l5u) ?? Weight Estimate: based on (BPD,HC,AC,FL) Hadlock ?Weight: 635 gm (543-728gm) Hadloc ? : 1lbs, 6oz ? Normal: 569 gm (427-712gm) Hadloc ? Wt% ? 82% for 23w0d Heart Rate: 159 bpm Amniotic Fluid Index: 03.8cm (Deepest Pocket) EVAL, PLACENTA Presentation: cephalic Umbilical Cord: 3 Vessels Placenta: anterior Heart Rate: 159 bpm Amniotic Fluid Volume: normal Anatomy!Normal!Abnormal!Suboptimal!Prev. Seen!Comments Cranium ?! ?? x ??! ?! ?! ? x ?! Mdl (CSP/Thal! ?! ?! ?! ? x ?! Ventricles ?? ! ?! ?! ?! ? x ?! Choroid Plexu! ?! ?! ?! ? x ?! Cerebellum ?? ! ?! ?! ?! ? x ?! Cerebellar Ve! ?! ?! ?! ? x ?! Cisterna M. ??! ?! ?! ?! ? x ?! Nuchal Fold ??! ?! ?! ?! ? x ?! Orbits ? ! ?! ?! ?! ? x ?! Profile ?! ?! ?! ?! ? x ?! Nasal Bone ?? ! ?! ?! ?! ? x ?! Lip ?! ?! ?! ?! ? x ?! Maxilla ?! ?! ?! ?! ? x ?! Mandible ? ! ?! ?! ?! ? x ?! Neck ? ! ?! ?! ?! ? x ?! Spine ?! ?? x ??! ?! ?! ?!unremarkable ?transverse spine, ?previously seen ?sagital spine Lungs ?! ?! ?! ?! ? x ?! 4 Chamber Hea! ?? x ??! ?! ?! ?! LVOT ? ! ?! ?! ?! ? x ?! RVOT ? ! ?! ?! ?! ? x ?! 3 Vessel View! ?! ?! ?! ? x ?! 3 Vessel Trac! ?? x ??! ?! ?! ?! Cross-over ?? ! ?! ?! ?! ? x ?! Ductal Arch ??! ?! ?! ?! ? x ?! Aortic Arch ??! ?! ?! ?! ? x ?! Caval View ?? ! ?! ?! ?! ? x ?! Situs ?! ?! ?! ?! ? x ?! Diaphragm ?! ?! ?! ?! ? x ?! Stomach ?! ?? x ??! ?! ?! ? x ?! Liver ?! ?! ?! ?! ? x ?! Bowel ?! ?! ?! ?! ? x ?! Kidneys ?! ?? x ??! ?! ?! ? x ?! Bladder ?! ?? x ??! ?! ?! ? x ?! 3 Vessel Cord! ?? x ??! ?! ?! ? x ?! Cord In! ?! ?! ?! ? x ?! Upper Extremi! ?! ?! ?! ? x ?! Hands ?! ?! ?! ?! ? x ?! Lower Extremi! ?! ?! ?! ? x ?! Feet ? ! ?! ?! ?! ? x ?! External Regi! ?! ?! ?! ? x ?! Placental Cor! ?! ?! ?! ? x ?! CLINICAL SUMMARY Study Number: 2 ?? A single fetus is seen in cephalic presentation. ??The measurements today are consistent with appropriate interval growth. ??The EVELYN is based on a prior ultrasound examination (confirmed). ??The amniotic fluid volume is within normal limits. anatomy was technically adequate. ?? No major malformations were seen within the limitations of ultrasound. ?? IMPRESSION: Single, live, intrauterine at 23w0d ?? size is has appropriate interval growth ?? Amniotic fluid volume: within normal limits ?? No evidence of a subchorionic hemorrhage was noted RECOMMEND: Ultrasound follow up as clinically indicated Thank you for allowing us the opportunity to care for your patient Kory Mejias MD <Electronic Signature> ??08/29/2020 05:41pm R Manuel Schmidt MD [facility] ORDERABLES
--- OUTSIDE RECORDS SUMMARY | 2024-04-28 16:46 | XMS_ITS | CONTINUITY OF CARE DOCUMENT ---
Author Name omkar espitia Address Unknown Organization [facility] Address [address] [place] [address] Phone [phone] Care Team Providers Care Loan Auditor Name Role Phone Ambrosio SLAUGHTER, Isela Unavailable [phone] CINTHIA SLAUGHTER, TA Vera Unavailable INSURANCE PROVIDERS Payer name Policy type / Coverage type [employer] [place] MEDICAID (2) Medicaid [id number]
== END 2024-04-28 16:23 | disposition home or self-care (01) ==
LOC: ANHIMG 16:23
PROVIDERS: Visit Provider Surgery
DX: R92.8 Other abnormal and inconclusive findings on diagnostic imaging of breast (principal); R59.0 Localized enlarged lymph nodes; N62 Hypertrophy of breast; N64.52 Nipple discharge
CPT/HCPCS: 76882

== ENCOUNTER 2024-07-08 12:55 | Outpatient (CLI) | payer OTHER, SELFPAY ==
--- OUTSIDE RECORDS SUMMARY | 2024-07-08 13:19 | XMS_ITS | Clinical Summary ---
Author Organization [facility] Address [address] [place] [address] Care Team Providers Care Body Trimmer Upholsterer Name Role Phone Unavailable Primary Care Provider Unavailabl e Source Comments [facility],non-owned Affiliates and Associated Physician Practices is amultiple site organization consisting of ambulatory clinics and hospital sitesin [place], [place], [place] and [place]. This disclosure is being madepursuant to the Care Everywhere program and may not contain all information available regarding this patient. Last updated 17.[employer] [facility] Allergies No known active allergies Medications * [...] 61 11/19/2023 12:38 PM CDT Temperature 36.5 C (97.7 F) 11/19/2023 12:38 PM CDT Respiratory Rate - - Oxygen Saturation 99% 11/19/2023 12:38 PM CDT Inhaled Oxygen Concentration - - Weight 107 kg (236 lb) 11/19/2023 12:38 PM CDT Height 170.2 cm (5' 7 ) 11/19/2023 12:38 PM CDT Body Mass Index 36.96 11/19/2023 12:38 PM CDT Plan of Treatment Health Maintenance Due Date Last Done Comments DTAP/TDAP/TD VACCINES (1 - Tdap) 2012 HEPATITIS B VACCINE (1 of 3 - 19+ 3-dose series) 2012 COVID-19 VACCINE ( - 2023-2 5 season) 2023 DEPRESSION SCREENING 03/31/2024 INFLUENZA VACCINE (Season Ended) 2024 PAP SMEAR 09/29/2026 09/30/2023 ZOSTER VACCINE (1 of 2) 2043 HEPATITIS C SCREENING Completed 06/15/2020 , 06/15/2020 HIV SCREENING Completed 06/15/2020 HIB VACCINE Aged Out No longer eligi ble based on patient's age to complete this topic HPV VACCINE Aged Out No longer eligi ble based on patient's age to complete this topic MENINGOCOCCAL (Group B) VACCINE SHARED DECISION-MAKING Aged Out No longer eligible based on patient's age to complete this topic MENINGOCOCCAL GROUPS A/C/Y/W VACCINE Aged Out No longer eligible b ased on patient's age to complete this topic PNEUMOCOCCAL VACCINE Aged Out No long er eligible based on patient's age to complete this topic [place] Henderson Personal/Family Self [address] [place] [address]
--- OUTSIDE RECORDS SUMMARY | 2024-07-08 13:19 | XMS_ITS | Data Portability ---
Author Organization [facility] [place] Address [address] [place] [address] [place] [address] Assessment Encounter Date Assessment Date Assessment LastModified by Organization Details LastModified Time 09/30/2023 09/30/2023 Annual gynecological exam performed. Patient will come back in a year unless there are new symptoms. [email or web address] Not available 09/30/2023 15:05:59 Plan of Treatment Reminders Order Date Submit Date Provider Last Modified By Organization Details Last Modified Time Details Appointments None recorded. [facility] test, [facility] [address], [address], [address], [place], [address], 3 14:30:04 prolactin, serum 2022 023 [facility] (Lab), [address] [facility], [place], [address], 3 03:00:49 drug screen, urine 2020 021 [facility], [address], [address], [place], [address], 1 16:04:37 Referral None recorded. Procedures None recorded. Surgeries None recorded. Imaging MAMMO, diagnostic, digital, bilateral 2023 024 [facility], [address], [address] [address], [place], [address], 4 17:43:34 US, breast, unilateral - bilateral breast pain, left nipple discharge 2023 024 [facility], [address], [place], [address], 5 05:01:03 US, breast, unilateral, complete [email or web address] [place] [address] Imaging, [address], [address], [place], [address], 3 15:53:15 Medication Orders Twirla 120 mcg-30 mcg/24 hr transdermal patch 2022 023 [id number], [address], [place], [id number], 4 15:22:02 buspirone 7.5 mg tablet 2022 024 [facility] #[id number], [address], [place], [id number], 4 15:10:30 Patient TargetsNo targets recorded. Patient [...] t Abnor mal: No Resul ting Lab: [facility] [address] [facility] [address] Tel: CULTU RE ----- ----- ----- --- Cultu re resul t (>=3 organ isms prese nt) indic ates possi ble conta minat ion. Repea t cultu re if sympt oms indic ate. Not Available [facility] (Lab) [address] [facility], [place], [address], 08/12/2020 07:07:16 10/04/19 21 10/03/2020 CT/GC AND TRICH OMONA S VAGIN HERBER (RRNA ), URINE chlamydia trachomatis, PCR NEGATI VE negati ve Not Available [facility] (Lab) [address] [facility], [place], [address], 10/05/2020 02:44:27 10/04/19 21 10/03/2020 CT/GC AND TRICH OMONA S VAGIN HERBER (RRNA ), URINE neisseria gonorrhoeae, PCR NEGATI VE negati ve Not Available [facility] (Lab) [address] [facility], [place], [address], 10/05/2020 02:44:27 10/04/19 21 10/03/2020 CT/GC AND TRICH OMONA S VAGIN HERBER (RRNA ), URINE trichomonas vaginalis ribosomal RNA (rrna) NEGATI VE negati ve Not Available [facility] (Lab) [address] [facility], [place], [address], 10/05/2020 02:44:27 10/04/19 21 10/03/2020 CULTU RE: URINE result report SEE RESULT S BELOW Test: Cultu re: Urine Speci men Sourc e: Urine Voide d Speci men Type: Urine Speci men Date: 021 4:11 PM Resul t Date: 1:41 AM Resul t Statu s: Final resul t Abnor mal: No Resul ting Lab: [facility] [address] [facility] [address] Tel: [phone] CULTU RE ----- ----- ----- --- Cultu re resul t (>=3 organ isms prese nt) indic ates possi ble conta minat ion. Repea t cultu re if sympt oms indic ate. Not Available [facility] (Lab) [address], [place], [address], 10/05/2020 02:44:30 10/04/19 21 10/03/2020 drug scree n, urine Amphetamines : negati ve Not Available [place] [address], [place], [address], 10/03/2020 16:04:11 10/04/19 21 10/03/2020 drug scree n, urine Cannabinoids : positi ve Not Available [place] [address], [place], [address], 10/03/2020 16:04:11 10/04/19 21 10/03/2020 drug scree n, urine Opiates: negati ve Not Available [place] [address], [place], [address], 10/03/2020 16:04:11 10/04/19 21 10/03/2020 drug scree n, urine Benzodiazepi sadie: negati ve Not Available [place] [address], [place], [address], 10/03/2020 16:04:11 09/26/19 23 09/25/2022 PROLA CTIN prolactin, total 13.10 NG/mL 4.79-2 3.30 This assay was perfo rmed using [employer] ratio n reage nts and test kits. Value s obtai benji with other assay metho ds or kits canno t be used inter frazier eably . Not Available [facility] (Lab) [address], [place], [address], 09/26/2022 03:00:49 09/26/19 23 09/25/2022 CT/GC AND TRICH OMONA S VAGIN HERBER (RRNA ), URINE chlamydia trachomatis, PCR NEGATI VE negati ve Not Available [facility] (Lab) [address], [place], [address], 09/26/2022 14:13:49 09/26/19 23 09/25/2022 CT/GC AND TRICH OMONA S VAGIN HERBER (RRNA ), URINE neisseria gonorrhoeae, PCR NEGATI VE negati ve Not Available [facility] (Lab) [address] [facility], [place], [address], 09/26/2022 14:13:49 09/26/19 23 09/25/2022 CT/GC AND TRICH OMONA S VAGIN HERBER (RRNA ), URINE trichomonas vaginalis ribosomal RNA (rrna) NEGATI VE negati ve Not Available [facility] (Lab) [address] [facility], [place], [address], 09/26/2022 14:13:49 01/02/20 23 01/01/2023 pregn jefe test, urine HCG negati ve Not Available [place] [address], [place], [address], 01/01/2023 14:29:47 09/30/19 24 09/30/2023 IMAGE GUIDE [...] as clini radha mijares nted. Not Available [facility] (Lab) [address] [facility], [place], [address], 10/06/2023 15:42:37 09/30/19 24 09/30/2023 TRICH OMONA S VAGIN HERBER (RRNA ) trichomonas vaginalis ribosomal RNA (rrna) Negati ve negati ve Not Available [facility] (Lab) [address] [facility], [place], [address], 10/06/2023 15:42:38 09/30/19 24 09/30/2023 CT/GC (JG) , THINP REP VIAL chlamydia trachomatis, PCR Negati ve negati ve Not Available [facility] (Lab) [address] [facility], [place], [address], 10/06/2023 15:42:39 09/30/19 24 09/30/2023 CT/GC (JG) , THINP REP VIAL neisseria gonorrhoeae, PCR Negati ve negati ve Not Available [facility] (Lab) [address] [facility], [place], [address], 10/06/2023 15:42:39 08/30/19 21 07/31/2020 US, obste tric, follo w-up No observ ation record ed. [address] [facility] [address] [place] [address], [address], 08/30/2020 07:45:47 08/30/19 21 08/29/2020 US, obste tric, follo w-up No observ ation record ed. [address] [facility] [address] [place], [address], 08/30/2020 07:46:35 08/30/19 21 08/29/2020 US, obste tric, follo w-up No observ ation record ed. [email or web address] [facility] [address] [place], [address], 08/31/2020 10:16:22 08/31/19 21 08/29/2020 US, obste tric, follo w-up No observ ation record ed. [email or web address] [facility] [place] [address] [place], [address], 08/30/2020 15:37:27 09/08/19 21 09/07/2020 US, obste tric, limit ed No observ ation record ed. [email or web address] [place] [address], [place], [address], 09/07/2020 17:56:27 09/08/19 21 09/07/2020 US, obste tric, trans vagin al No observ ation record ed. [email or web address] [place] [address], [place], [address], 09/07/2020 17:56:38 09/08/19 21 09/07/2020 US, obste tric, limit ed No observ ation record ed. ER[address] [facility], [place], [address], 09/08/2020 12:11:12 10/29/19 24 10/29/2023 MAMMO , diagn ostic , digit al, bilat eral No observ ation record ed. [facility] [address], [place], [address], 10/30/2023 09:00:04 10/30/19 24 10/29/2023 US, breas t, unila teral No observ ation record ed. [facility] [address], [place], [address], 11/03/2023 20:07:06 Result Notes None recorded. Problems Name Problem SNOMED Code Status Onset Date Resolution Date Notes Provider Name and Address Organization Details Recorded Time Edis rodriguez user 491343959 Active 2020 Frances Abdi null, [facility] 12:17:04 Pregnanc y 63811407 Completed 202011/07/2020 Amy Bhakta hl null, [facility] 11:27:51 Alpha-fe toprotei n above referenc e range 832877141 Completed Pos AFP - Level II U/S f/u on 08/29/20 to complete anatomy - SS Luba Bhakta hl null, [facility] 11:27:47 Infectio n by Trichomo lauro [id number] Completed MARK neg- Recheck 3rd trimeste r Amy Bhakta hl null, [facility] 11:27:47 Problem Notes None recorded. Procedures Surgical History None recorded. Imaging Results Imaging Date Name Status LastModified by Organization Details LastModified Time 07/31/2020 US, obstetric, follow-up completed [address] [facility] [address], [address], 08/30/2020 07:45:47 08/29/2020 US, obstetric, follow-up completed [facility] [address], [address], 08/30/2020 07:46:35 08/29/2020 US, obstetric, [email or web address] [address], [address], 08/31/2020 10:16:22 08/29/2020 US, obstetric, follow-up completed [facility] [address] [facility] [place], [address], 08/30/2020 15:37:27 09/07/2020 US, obstetric, limited completed [email or web address] [place] [address], [place], [address], 09/07/2020 17:56:27 09/07/2020 US, obstetric, transvaginal completed [email or web address] [place] [address], [place], [address], 09/07/2020 17:56:38 09/07/2020 US, obstetric, limited completed [facility] [address], [place], [address], 09/08/2020 12:11:12 10/29/2023 MAMMO, diagnostic, digital, bilateral completed [address], [place], [address], 10/30/2023 09:00:04 10/29/2023 US, breast, unilateral completed [address], [place], [address], 11/03/2023 20:07:06 Procedure Notes None recorded. Medical [...] completed Not Available Not Available Not Available [employer]-PN[facility]-DHA 28 mg iron-1 mg-200 mg capsule Take [...] Updated DateTime 09/07/2020 167.64 cm 34.2 kg/m2 58774.58 244 g 119 mm[Hg] 80 mm[Hg] Frances Abdi [facility] 14:19:16 Date Recorded Body height Body mass index (BMI) Body weight Systolic blood pressure Diastolic blood pressure Provider Name and Address Organization Details Last Updated DateTime 10/03/2020 167.64 cm 34.7 kg/m2 18327.35 955 g 126 mm[Hg] 83 mm[Hg] Sarah Rudolph [facility] 15:45:32 Date Recorded Body height Body mass index (BMI) Body weight Provider Name and Address Organization Details Last Updated DateTime 09/25/2022 167.64 cm 38.4 kg/m2 369493.98 g Violetta Brice [facility] 09/25/2022 17:03:53 Date Recorded Systolic blood pressure Diastolic blood pressure Provider Name and Address Organization Details Last Updated DateTime 09/25/2022 122 mm[Hg] 78 mm[Hg] Maggie Albrecht, [facility] [address], [place], [address], [facility] 09/27/2022 20:58:02 Date Recorded Body height Body mass index (BMI) Body weight Systolic blood pressure Diastolic blood pressure Provider Name and Address Organization Details Last Updated DateTime 01/01/2023 167.64 cm 38.6 kg/m2 047365.5 8 g 157 mm[Hg] 100 mm[Hg] Violetta Narvaez [facility] 14:05:35 Date Recorded Systolic blood pressure Diastolic blood pressure Provider Name and Address Organization Details Last Updated DateTime 01/01/2023 118 mm[Hg] 76 mm[Hg] Maggie Albrecht, [facility] [address], [place], [address], [facility] 01/01/2023 14:30:52 Date Recorded Body height Body mass index (BMI) Body weight Systolic blood pressure Diastolic blood pressure Systolic blood pressure Diastolic blood pressure Provider Name and Address Organization Details Last Updated DateTime 167.64 cm 37.8 kg/m2 191909. 61 g 172 mm[Hg] 132 mm[Hg] 168 mm[Hg] 118 mm[Hg] Yolanda Perry [facility] 4 15:34:02 Social History Question Answer Notes LastModified by Organizat ion Details LastModified Time Tobacco Smoking Status Former Smoker Laura ba [facility] 07/13/2020 16:11:48 Do You Have An [...] Or The Highest Degree You Have Received? [id number] Information not available 06/15/2020 Are There Any [...] Anxious, Or Unable To Sleep At Night)? [id number] Information not available 06/15/2020 Do You Use Any Illicit Or Recreational Drugs? No Information not available 06/15/2020 Do You Use Sunscreen Routinely? No Information not available 06/15/2020 Have You Used IV Drugs? No [email or web address] Information not available 05/04/2020 Sex: Unknown Functional Status Question Answer Note LastModified by Organization D etails LastModified Time Are you able to walk? YESWOREST [email or web address] Information not available 06/15/2020 What is your exercise level? None [email or web address] Information not available 05/04/2020 Mental Status None recorded. Family History Relationship Description Onset Age of this Age Resolved Age Notes LastModified by Organization Details LastModified Time Father No current problems or disability Not available 05/04 12:17:50 Mother No current problems or disability [email or web address] Not available 05/04 12:17:50 Medical History Condition Response Allergies (Food, seasonal, environmental ) N Other N Breast Cancer N Drug/Latex Allergies/Reactions N Blood Transfusion N Dermatologic Disorders N Lung Disease N Defects or Inherited Disease N Breast Problem N Gestational Diabetes N Hematologic disorders N Anesthesia Complications N History of STI N Deep Vein Thrombosis N Polycystic ovary syndrome N Anxiety Disorder N Autoimmune disease N Arthritis N Infertility N Polyps N Acid Reflux (GERD) N History of abnormal pap N Cancer N Stroke N Varicosities N Neurologic/Epilepsy N Endometriosis N High Cholesterol N Headaches N Fibromyalgia N Kidney Disease N Heart Problems N Kidney or Bladder Problems N Thyroid Problems N GI Problems N Eating Disorder N Anemia N Art (IVF or FET) N Psychiatric Illness N Ovarian Cancer N Diabetes N Pulmonary (TB, Asthma) N Hepatitis/Liver Disease N Eczema N Urinary Tract Infection N Abuse/Domestic Violence N Asthma N Trauma/Violence N Depression/ depression N Heart Disease N Pre-Eclampsia N Hypertension Y Osteoporosis N Thrombophilias N Gynecological History Statement/Question Response Abnormal Pap [...] SNOMED-CT Code Diagnosis ICD10 Code Diagnosis Note 25523 Shwetha Small [place] [address] [address] 05/04/2020 12:15:05 05/04/2020 13:22:04 test positive 712894945 Z32.01 Risk factors addressed: Tobacco Cessation, Safe [...] annual well woman examinatio n and address [place] . [address] [facility] [address],[place] [address] 05/04/2020 12:15:57 05/04/2020 13:23:04 screening 449930844 Z36.87 11516 [facility] [address],[place] [address] 06/15/2020 14:15:30 06/15/2020 15:41:04 screening 327914547 Z36.82 92264 Rivas Schmidt MD [place] [address],[place] [address] 06/15/2020 14:15:51 06/16/2020 16:16:00 Routine care 269690200 Z34.91 29229 Shwetha Small [place] [address],[place] [address] 07/13/2020 16:11:37 07/13/2020 17:19:07 Routine care 515731059 Z34.92 80130 [facility] [address],[place] [address] 07/13/2020 16:36:18 07/13/2020 17:19:33 Spotting per vagina in 920578142 O26.852 Z3A.16 51148 Shwetha [facility] [address],[place] [address] 08/10/2020 15:25:20 08/10/2020 15:39:58 Routine care 659839924 Z34.92 34215 Shwetha [facility] [address],[place] [address] 09/07/2020 14:14:24 09/07/2020 14:42:04 Routine care 790365936 Z34.92 72065 Mame Melendrez [place] [address],[place] [address] 09/07/2020 14:40:44 09/07/2020 15:15:39 Bleeding from female genital tract during 3307367010 5766265 O46.92 Z03.75 Z3A.24 93626 Nicolasa Infante MD [place] [address],[place] [address] 10/03/2020 15:39:39 10/03/2020 16:37:37 Screening procedure 14686209 Z13.9 Increased frequency of urination 590287505 R35.0 Infection by Trichomonas 00215311 A59.9 Routine an tenatal care 315153956 Z34.83 [id number] Maggie Albrecht [facility] [address],[place] [address] 09/25/2022 16:52:49 09/27/2022 21:48:01 Discharge from nipple 60130985 N64.52 Clear to milky nipple discharge manually seen Left breast.Agr eed on pursuing US & LabsWill call to schedule & update once results recieved. Time spent in visit is a total of 22 mins with at least 50% of visit consisting of counseling and review of plan of care. Milia 285928954 L72.0 Milia cysts on Labia minoraBoth ered by these asthetical ly but not causing any medical issues per pt.Offer to incise and remove contentsSh e decided to monitor until upcoming WWE visit. [id number] [facility] [address] [address] 01/01/2023 14:00:13 01/02/2023 15:41:05 Contraception care management 663208357 Z30.9 Discussed all control options in great [...] reference. 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 RTO x 4-6wks med check [id number] MIKHAIL Barakat [place] [address] [address] 09/30/2023 15:03:08 09/30/2023 16:54:57 Gynecologic examination 96202596 Z01.419 WWEBC - declinedpa p updatedgc/ ct/trich [...] today's plan if desired. Pain of breast 60092517 N64.4 Bilateral diagnostic mammogram with left breast u/s orderedenc ouraged pt to schedule Discharge from nipple 54 902903 N64.52 Venereal d isease screening 125727903 Z11.3 Elevated blood-pressure reading without diagnosis of hypertension 699388981 R03.0 BP significan tly elevatedsh e does [...] [place] Member ID Guarantor Name 09/07/[address] [facility] PRIOR TO 09/28/2020 (MEDICAID REPLACEMENT - HMO) Scott Henderson [id number] Scott Henderson 10/03/[address] [facility] PRIOR TO 09/28/2020 (MEDICAID REPLACEMENT - HMO) Scott Henderson [id number] Scott Henderson 09/25/2022 1 [facility] ON OR AFTER 09/28/20 (MEDICAID REPLACEMENT - HMO) Scott Dislaoten [id number] Scott Santiago 01/01/[address] [facility] ON OR AFTER 09/28/20 (MEDICAID REPLACEMENT - HMO) Scott Dislaoten [id number] Scott Santiago 09/30/[address] [facility] ON OR AFTER 20 (MEDICAID REPLACEMENT - HMO) Scott Dislaoten [id number] Scott Santiago Notes Date Note Type Note [...] breasts Maggie Albrecht [facility]- [address], [place], [address], [facility] 09/27/2022 21:01:41 01/01/2023 text/html [...] counseling. Maggie Albrecht [facility]- [address], [place], [address], [facility] 01/10/2023 13:33:46 09/30/2023 text/html [...] use; Encourage regular mammograms starting age 38Notes:28yo [id number] h/o abnormal pap smears per ptlast pap [...] current migraine MIKHAIL Barakat [address], [place], [address], [facility] 09/30/2023 16:51:05 OBGyn Episode Ob Episode Information Episode Created Date Number of Fetuses Patient Bloodtype Patient rh Status Prepregnancy Weight lbs Domestic Partner Domestic Partner Phone Father Name Double Backer Status 05/04/19 21 1 CLOSED Fetus Data [...] Domestic Partner Domestic Partner Phone Father Name Double Backer Status 05/04/19 21 1 CLOSED Fetus Data [...] Domestic Partner Domestic Partner Phone Father Name Double Backer Status 06/16/19 21 1 B Positive CLOSED Fetus Data First Name Last Name Admitted to NICU Weight (g) Sex Living Outcome Pediatric Complications Fetus ID Race Codes Race Delivery Type 8550 Problems Problem Notes Problem Name Start Date End Date Resolution Snomed Code Not e Infection by Trichomonas [id number] MARK neg- Rechec k 3rd trimester Alpha-fetoprotein above reference range 427145662 Pos AF P - Level II U/S f/u on 08/29/20 to complete anatomy - [facility] Nabeel Calculation Initial Nabeel Date Initial Exam [...] Weight in lbs Pre/Post Dialysis Refused Weight 204.327511656192 BP Diastolic BP Location Tested BP Systolic [...] Weight in lbs Pre/Post Dialysis Refused Weight 204.241690557134 BP Diastolic BP Location Tested BP Systolic [...] Weight in lbs Pre/Post Dialysis Refused Weight 205.298818602628 BP Diastolic BP Location Tested BP Systolic [...] Weight in lbs Pre/Post Dialysis Refused Weight 212.41050149084 BP Diastolic BP Location Tested BP Systolic [...] Weight in lbs Pre/Post Dialysis Refused Weight 215.627808866319 BP Diastolic BP Location Tested BP Systolic [...] Estim ated Date of Delivery false Thalassemia (Cameroonian, Cuban, Mediterranean, Or Background): MCV < 80 false Neural Tube Defect (Meningomyelocele, Spina Bifi da, Or Anencephaly) false Congenital Heart Defect false Down Syndrome false Jorge-Sachs (eg, Roman Catholic, Cajun, Turkmen-Houghton) f alse Андрей Disease false Sickle Cell Disease Or Trait () false Hemophilia Or Other Blood Disorders false Muscular Dystrophy false Cystic Fibrosis false Crofton's Chorea false Intellectual Disability/Autism false If Yes, [...] Domestic Partner Domestic Partner Phone Father Name Double Backer Status 05/04/19 21 1 CLOSED Fetus Data [...] Domestic Partner Domestic Partner Phone Father Name Double Backer Status 09/26/19 23 1 CLOSED Fetus Data [...]
--- OUTSIDE RECORDS SUMMARY | 2024-07-08 13:19 | XMS_ITS | CONTINUITY OF CARE DOCUMENT ---
Author Name omkar espitia Address Unknown Organization [facility] Address [address] [place] [address] Phone [phone] Care Team Providers Care Fitness Floor Attendant Name Role Phone Ambrosio SLAUGHTER, Isela Unavailable CINTHIA SLAUGHTER, TA Vera Unavailable [phone] INSURANCE PROVIDERS Payer name Policy type / Coverage type Iola red libertarian [place] MEDICAID (2) Medicaid [id number]
--- OUTSIDE RECORDS SUMMARY | 2024-07-08 13:19 | XMS_ITS | Data Portability ---
Author Organization [facility] Address [address] [place] [address] Assessment Encounter Date Assessment Date Assessment LastModified by Organization Details LastModified Time 12/12/2020 12/12/2020 CODEY HeathS Not available 12/12/2020 16:23:43 02/05/2021 02/05/2021 MILAGROS Aguilar [email or web address] Not available 02/05/2021 13:47:44 Plan of Treatment Reminders Order Date Submit Date Provider Last Modified By Organization Details Last Modified Time Details Appointments None recorded . Lab CMP, serum or plasma 2023 024 miladys [facility], 2022 Jossie Blanchard, [address], [place], [address], 4 08:27:47 TSH, ultra-se nsitive, serum 2023 024 [email or web address] [facility], 2022 Jossie Blanchard, [address], [place], [address], 4 08:27:47 albumin/ creatini ne, mass ratio, urine 2023 024 miladys [facility], 2022 Jossie Blanchard, [address], [place], [address], 4 08:27:47 lipid panel, serum 2023 024 [email or web address] [facility], 2022 Jossie Blanchard, [address], [place], [address], 4 08:27:48 CBC w/ auto diff 2023 [facility], 2022 Jossie Blanchard, [address], [place], [address], 4 08:27:48 HbA1c (hemoglo bin A1c), blood 2023 024 [facility], 2022 Jossie Blanchard, [address], [place], [address], 4 08:27:48 TSH + free T4, serum 2023 [facility], 2022 Jossie Blanchard, [address], [place], [address], 4 08:27:48 vitamin D, 25-hydro xy, total, serum 2023 [facility], 2022 Jossie Blanchard, [address], [place], [address], 4 08:27:48 HIV 1 + 2, meaningf ul use set 2023 024 [facility], 2022 Jossie Blanchard, [address], [place], [address], 4 08:27:48 Mycobact erium tubercul osis stimulat ed gamma interfer on, qual, blood 2022 023 [facility], 2022 Jossie Blanchard, [address], [place], [address], 3 06:11:01 urinalys is, dipstick 2020 021 [email or web address] In-Office Order, Internal Use Only DO Not Attach Compendium DO Not Attach Compendium, Do Not Delete/merge, [id number] 17:18:14 Referral psychiat rist referral [address], [address], [place], [address], 5 08:45:24 Procedures None recorded . Surgeries tubal ligation (SURG) 2020 021 [facility], [address] [place] [address] [address], [place], [address], 14:40:51 Imaging None recorded . Medication Orders hydroxyz ine HCl 25 mg tablet 2024 025 [facility]48262, [address], [place], [id number], 5 10:27:40 amlodipi ne 10 mg tablet 2024 025 [facility] #29429, [address], [place], [id number], 5 10:27:40 losartan 25 mg tablet 2024 025 [facility] #46540, [address], [place], [id number], 5 10:27:38 hydroxyz ine HCl 25 mg tablet 2023 024 [facility] #43389, [address], [place], [id number], 4 09:50:58 famotidi ne 20 mg tablet 2023 024 [facility] #05075, [address], [place], [id number], 4 09:50:23 [facility]ivit wilson tablet 2020 [facility]21 [facility] [address], [place], [id number], 16:05:13 Calcium with Vitamin D 600 mg-10 mcg (400 unit) tablet [facility] [address], [place], [id number], 16:05:12 Xulane 150 mcg-35 mcg/24 hr transder mal patch 2020 d[facility] #72745, [address], [place], [id number], 4 08:49:49 Patient TargetsNo targets recorded. Patient Instructions Encounter Date Encounter Id Patient Instructions Last Modified By Organization Details Last Modified Time 12/12/2020 [id number] genital herpes: care instructions Not available 12/12/2020 16:40:27 02/05/2021 [id number] after : exercises [email or web address] Not available 02/05/2021 13:20:29 Care at Home With Your Baby: Care Instructions [email or web address] Not available 02/05/2021 13:20:28 tubal ligation: before your surgery mwasserman Not available 02/05/2021 13:20:28 04/05/2022 [id number] learning about tuberculosis (TB) [email or web address] Not available 04/05/2022 12:37:35 02/16/2024 [id number] learning about high blood pressure [email or web address] Not available 02/16/2024 09:50:14 04/08/2024 [id number] A healthy lifestyle: care instructions Not available 04/08/2024 10:27:17 learning about high blood pressure [email or web address] Not available 04/08/2024 10:27:17 Reason for Referral [...] DO Not Attach Compendium, Do Not Delete/merge, [id number] 12/12/2020 16:11:30 12/13/19 21 12/12/2020 urina lysis , dipst ick Nitrite negati ve Not Available In-Office Order Internal Use Only DO Not Attach Compendium DO Not Attach Compendium, Do Not Delete/merge, [id number] 12/12/2020 16:11:30 12/13/19 21 12/12/2020 urina lysis [...] 12/12/2020 urina lysis , dipst ick Specific [place] 1.020 Not Available In-Off ice Order Internal [...] 12/06/2020 urina lysis , dipst ick Specific [place] 1.025 Not Available In-Off ice Order Internal [...] 11/30/2020 urina lysis , dipst ick Specific [place] 1.030 Not Available In-Off ice Order Internal [...] Attach Compendium, Do Not Delete/merge, 11/29/2020 23:03:12 11/30/1911/30/2020 urina lysis , dipst ick Glucose Negati [...] 21 11/23/2020 urina lysis , dipst ick Nitrite positi ve Not Available In-Office Order Internal Use Only DO Not Attach Compendium DO Not Attach Compendium, Do Not Delete/merge, 11/23/2020 17:33:54 11/24/19 21 11/23/2020 urina lysis , dipst ick Urobilinogen .2 Not Available In-Of fice Order Internal Use Only DO Not Attach Compendium DO Not Attach Compendium, Do Not Delete/merge, [id number] 11/23/2020 17:33:54 11/24/19 21 11/23/2020 urina lysis , dipst ick Protein Negati ve Not Available In-Office Order Internal Use Only DO Not Attach Compendium DO Not Attach Compendium, Do Not Delete/merge, [id number] 11/23/2020 17:33:54 11/24/19 21 11/23/2020 urina lysis , dipst ick pH 7.0 Not Available In-Office Order Internal Use Only DO Not Attach Compendium DO Not Attach Compendium, Do Not Delete/merge, [id number] 11/23/2020 17:33:54 11/24/19 21 11/23/2020 urina lysis , dipst ick Blood Large Not Available In-Office Order Internal Use Only DO Not Attach Compendium DO Not Attach Compendium, Do Not Delete/merge, [id number] 11/23/2020 17:33:54 11/24/19 21 11/23/2020 urina lysis , dipst ick Specific [place] 1.020 Not Available In-Off ice Order Internal Use Only DO Not Attach Compendium DO Not Attach Compendium, Do Not Delete/merge, [id number] 11/23/2020 17:33:54 11/24/19 21 11/23/2020 urina lysis , dipst ick Ketone Negati ve Not Available In-Office Order Internal Use Only DO Not Attach Compendium DO Not Attach Compendium, Do Not Delete/merge, [id number] 11/23/2020 17:33:54 11/24/19 21 11/23/2020 urina lysis , dipst ick Bilirubin Negati ve Not Available In-Office Order Internal Use Only DO Not Attach Compendium DO Not Attach Compendium, Do Not Delete/merge, [id number] 11/23/2020 17:33:54 11/24/19 21 11/23/2020 urina lysis , dipst ick Glucose Negati ve Not Available In-Office Order Internal Use Only DO Not Attach Compendium DO Not Attach Compendium, Do Not Delete/merge, [id number] 11/23/2020 17:33:54 11/25/19 21 11/27/2020 URINE CULTU RE, ROUTI NE urine culture, routine FINAL REPORT abnormal Not Available [facility] ([facility]) [address], [place], [address], 11/28/2020 03:07:22 11/25/19 21 11/27/2020 URINE CULTU [...] Prote us mirab ilis. Not Available [facility] ([facility]) [address], [place], [address], 11/28/2020 03:07:22 11/25/1911/27/2020 URINE CULTU RE, ROUTI NE antimicrobia l [...] thopr im/Mercado lfa S Not Available [facility] ([facility]) [address], [place], [address], 11/28/2020 03:07:22 12/01/19 21 12/10/2020 NUSWA B VAGIN ITIS PLUS (VG+) atopobium vaginae LOW - 0 score Not Available [facility] ([facility]) [address], [place], [address], 12/10/2020 16:07:51 12/01/19 21 12/10/2020 NUA B VAGIN ITIS PLUS (VG+) bvab 2 LOW - 0 score Not Available [facility] ([facility]) [address], [place], [address], 12/10/2020 16:07:51 12/01/1912/10/2020 NUA B VAGIN ITIS PLUS (VG+) megasphaera 1 LOW - 0 score Calcu late total score by tamika g the 3 indiv idual bacte rial vagin [...] e dontrell cteri stics deter mined by [facility]. It has not been clear ed or appro dangelo by the Food and Drug Admin istra tion. Not Available [facility] ([facility]) [address], [place], [address], 12/10/2020 16:07:51 12/01/19 21 12/10/2020 NUSWA B VAGIN ITIS PLUS (VG+) conrado albicans, JYOTI POSITI VE negati ve abnormal Not Available [facility] ([facility]) [address], [place], [address], 12/10/2020 16:07:51 12/01/19 21 12/10/2020 NUSWA B VAGIN ITIS PLUS (VG+) conrado glabrata, JYOTI NEGATI VE negati ve Not Available [facility] ([facility]) [address], [place], [address], 12/10/2020 16:07:51 12/01/19 21 12/10/2020 NUSWA B VAGIN ITIS PLUS (VG+) trich vag by JYOTI POSITI VE negati ve abnormal Not Available [facility] ([facility]) [address], [place], [address], 12/10/2020 16:07:51 12/01/19 21 12/10/2020 NUA B VAGIN ITIS PLUS (VG+) chlamydia trachomatis, JYOTI NEGATI VE negati ve Not Available [facility] ([facility]) [address], [place], [address], 12/10/2020 16:07:51 12/01/19 21 12/10/2020 NUA B VAGIN ITIS PLUS (VG+) neisseria gonorrhoeae, JYOTI NEGATI VE negati ve Not Available [facility] ([facility]) [address], [place], [address], 12/10/2020 16:07:51 12/01/19 21 12/06/2020 HSV JYOTI hsv 1 JYOTI NEGATI VE negati ve Not Available [facility] ([facility]) [address] [place], [address], 12/10/2020 16:07:52 12/01/19 21 12/06/2020 HSV JYOTI hsv 2 JYOTI NEGATI VE negati ve Not Available [facility] ([facility]) [address] [place], [address], 12/10/2020 16:07:52 12/01/19 21 12/02/2020 STREP GP B JYOTI strep gp B JYOTI NEGATI VE negati ve Cent[facility] rs [facility] Disea se Contr ol and Preve ntion ([facility]) and Ameri can Congr ess of Obste trici ans and Gynec ologi sts (ACOG ) guide lines for preve ntion of perin atal group B strep tococ mana (GBS) disea se speci fy co-co llect ion of a vagin al and recta l swab speci men to maxim ize sensi tivit y of GBS detec tion. Per the CDC and ACOG, swabb ing both the lower [...] n is noted . Not Available [facility] ([facility]) [address] [place], [address], 12/10/2020 16:07:52 04/05/1904/06/2022 QUANT IFERO N-TB GOLD PLUS quantiferon incubation Incuba tion perfor med. Not Available [facility] ([facility]) [address] [place], [address], 04/09/2022 06:11:00 04/05/1904/06/2022 QUANT IFERO N-TB GOLD [...] ol for the test. Not Available [facility] ([facility]) [address] [place], [address], 04/09/2022 06:11:00 04/05/1904/09/2022 QUANT IFERO N-TB GOLD PLUS quantiferon- TB gold plus Negati ve negati ve No respo nse to M tuber culos is antig ens detec mario. Infec tion with M tuber culos is is unlik trveor, but high risk indiv idual s shoul d be consi dered for addit ional testi ng (ATS/ IDSA/ CDC Clini mana Pract ice Guide lines , 2017) . The refer ence range is an Antig en minus Nil resul t of <0.35 IU/mL . Chemi lumin escen ce immun oassa y metho dolog y Not Available [facility] ([facility]) [address] [place], [address], 04/09/2022 06:11:00 04/05/1904/09/2022 QUANT IFERO N-TB GOLD PLUS quantiferon TB1 Ag value 0.03 IU/mL Not Available [facility] ([facility]) [address] [place], [address], 04/09/2022 06:11:00 04/05/1904/09/2022 QUANT IFERO N-TB GOLD PLUS quantiferon TB2 Ag value 0.04 IU/mL Not Available [facility] ([facility]) [address] [place], [address], 04/09/2022 06:11:00 04/05/1904/09/2022 QUANT IFERO N-TB GOLD PLUS quantiferon nil value 0.03 IU/mL Not Available [facility] ([facility]) [address], [place], [address], 04/09/2022 06:11:00 04/05/19 23 04/09/2022 QUANT IFERO N-TB GOLD PLUS quantiferon mitogen value >10.00 IU/mL Not Available [facility] ([facility]) [address], [place], [address], 04/09/2022 06:11:00 09/30/19 24 09/30/2023 pap, IG + HR HPV Pap,thinprep ,HPV negati ve Not Available Not Available 13:56:23 02/16/20 24 09/30/2023 XR, chest No observ ation record ed. [address], [address], 02/18/2024 15:14:10 Result Notes None recorded. Problems Name Problem SNOMED Code Status Onset Date Resolution Date Notes Provider Name and Address Organization Details Recorded Time Migraine 37702718 Active 2018 Suraj ba, [place] [facility] 17:00:49 Dysmenor frank 290204946 Active 2018 [place] [facility] 17:01:59 Pregnanc y 07453258 Completed 202010/24/2020 [place] ba[place] [facility] 1 13:26:03 Steriliz ation requeste d 696959051 Completed 2020 pptl Gladys Mays MD Attn: Charissa lima,[address] [place], [address], [place] [facility] 2 12:10:15 Steriliz ation requeste d 494443791 Active 2020 pptl Gladys Mays MD Attn: Charissa lima,[address] [place], [address], [place] [facility] 2 12:10:15 Genital herpes simplex type 2 159926014 Active 2020 Gladys Mays MD Attn: Demetriajany lima,[address] [place], [address] [place] [address] 2, [place] [facility] 2 12:10:16 Genital herpes simplex type 2 546116683 Completed 2020 Gladys Mays MD Attn: Charissa janie,[address] [place], [place], [address] [place] [address] 2, [place] [facility] 2 12:10:15 Anemia 213236271 Active 2020 Gladys Mays MD Attn: Charissa janie,[address] [place], [place], [address] [place] [address] 2, [place] [facility] 2 12:10:16 Anemia 698946152 Completed 2020 Gladys Mays MD Attn: Charissa lima,[address] [place], [place], [address] [place] [address] 2, [place] [facility] 2 12:10:16 Group B Streptoc occus carrier 62016110745 03 Completed 2020 Gladys Mays MD Attn: Charissa janie,[address] [place], [place], [address] [place] [address] 2, [place] [facility] 2 12:10:16 Group B Streptoc occus carrier 88813316286 03 Active 2020 Gladys Mays MD Attn: Charissa lima,[address] [place], [address] [place] [address] 2, [place] [facility] 2 12:10:16 Large for gestatio n age fetus 458871772 Active Gladys Mays MD Attn: Charissa lima,[address] [place], [address] [place] [address] 2, [place] [facility] 2 12:10:16 Oligohyd ramnios 04998832 Active inductio n of labor Gladys Mays MD Attn: Charissa lima,[address] [place], [place], [address] [place] [address] 2, [place] [facility] 2 12:10:16 Large for gestatio n age fetus 348724876 Completed Gladys Mays MD Attn: Charissa lima,[address] [facility], [place], [place], [address] [place] [address] 2, [place] [facility] 2 12:10:16 Oligohyd ramnios 76876908 Completed inductio n of labor Gladys Mays MD Attn: Accountjany lima,[address] [facility], [place], [place], [address] [place] [address] 2, [place] [facility] 2 12:10:16 Urinary tract infectio us disease 85270753 Completed 2020 Gladys Mays MD Attn: Accountjany lima,[address] [facility], [place], [place], [address] [place] [address] 2, [place] [facility] 2 12:10:16 Urinary tract infectio us disease 21635976 Active 2020 Gladys Mays MD Attn: Accountjany lima,[address] [facility], [place], [place], [address] [place] [address] 2, [place] [facility] 2 12:10:16 Urogenit al infectio n by Trichomo lauro vaginali s 48142007 Active 2020 Gladys Mays MD Attn: Accountjany g,[address] [place], [place], [address] [place] [address] 2, [place] [facility] 2 12:10:15 Urogenit al infectio n by Trichomo lauro vaginali s 47190374 Completed 2020 Gladys Mays MD Attn: Accountin g,[address] [place], [address] [place] [address] 2, [place] [facility] 2 12:10:15 Bacteria l vaginosi s 095795428 Active Suraj Rachel [place] [facility] 8 11:53:06 Bacteria l vaginosi s 580716924 Completed [place] [facility] [place] 20:22:33 Essentia l hyperten fawad 32891336 Active 2023 MARICEL SPRAGUE PA-C Attn: Accountin g,[address] [facility], [place], [address], [place] [facility] 4 09:45:25 Generali zed anxiety disorder 17378639 Active 2023 MARICEL SPRAGUE PA-C Attn: Accountin g,[address] [facility], [place], [address], [place] [facility] 4 09:45:35 Gastroes ophageal reflux disease without esophagi tis 226387942 Active 2023 MARICEL SPRAGUE PA-C Attn: Accountin g,[address] [facility], [place], [address], [place] [facility] 4 09:45:44 HPV - Human papillom avirus test positive Active Suraj ba, [place] - [facility] 8 11:53:06 Streptoc occus carrier 388604771 Active + GBS Suraj Rachel [place] [facility] 8 11:53:06 Infectio n by Trichomo lauro 47179767 [place] [facility] [place] 11:53:06 Infectio n by Conrado albicans 52643130 Active Suraj ba, [place] [facility] 8 11:53:06 Chlamydi al infectio n 478956056 [place] [facility] [place] 11:53:06 Candidia sis 79961299 Active [place] [facility] [place] 11:53:06 Candidia sis 39536813 Completed [place] [facility] [place] 20:22:33 Blood glucose outside referenc e range 462230535 Active [place] [facility] [place] 11:53:06 Blood glucose outside referenc e range 391365048 Com[place] [facility] 5 20:22:33 Acute urinary tract infectio n 625137578 [place] [facility] [place] 11:53:06 Acute urinary tract infectio n 485544722 Completed [place] [facility] [place] 20:22:33 Chlamydi al infectio n 534920918 Completed [place] [facility] 5 20:22:33 Constipa tion 12481945 Completed [place] [facility] [place] 20:22:32 Constipa tion 00667871 Active [place] [facility] [place] 11:53:06 Gastroes ophageal reflux disease 699537019 Completed [place] [facility] [place] 20:22:33 Venereal disease in mother complica ting pregnanc y, childbir th AND/OR puerperi 03377265 [place] [facility] [place] 11:53:06 Venereal disease in mother complica ting pregnanc y, childbir th AND/OR puerperi 82471866 Completed [place] [facility] 5 20:22:33 Gonorrhe a 51733617 Active [place] [facility] [place] 11:53:06 Gonorrhe a 08982908 Completed [place] [facility] [place] 20:22:33 Postpart [facility] 89399510 Completed 10/24/2020 [place] [facility] 13:26:08 Postpart [facility] 44503399 Completed [place] [facility] [place] 20:22:33 Postpart care Completed 10/24/2020 [place] [facility] [place] 13:26:13 Postpart care Completed [place] [facility] [place] 20:22:33 HPV - Human papillom avirus test positive Completed [place] [facility] [place] 20:22:13 Candidia sis of vagina 85584440 [place] [facility] [place] 11:53:06 Candidia sis of vagina 73922842 Completed [place] ba[place] [facility] 6 16:56:18 Bacteria l vaginosi s 194121155 Completed [place] ba[place] [facility] 16:56:18 HPV - Human papillom avirus test positive Completed [place] ba[place] [facility] 16:56:18 Herpes simplex 77141050 [place] [facility] [place] 11:53:06 Herpes simplex 21521688 Completed Kim ba, [place] [facility] 6 16:56:18 Problem Notes None recorded. Procedures Surgical History Date Name Laterality Status Provider Name and Address Organization Details Recorded Time Date of Last Pap Smear completed Geetha Spears MA [facility] 10/10/2020 15:33:28 8 Depo Injection completed Corine Ford [place] [facility] 05/14/2017 14:15:23 7 Depo Injection completed Corine Ford [place] - [facility] 10/14/2016 14:29:35 Imaging Results Imaging Date Name Status LastModified by Organiz ation Details LastModified Time 09/30/2023 XR, chest completed [email or web address] [place] [address] [address] [place], [address], 02/18/2024 15:14:10 Procedure Notes None recorded. Medical Equipment None Reported. Allergies Allergen ID Allergen Name Allergen Category Reaction Reaction Severity Criticality Documentation Date Start Date Code Code System Note Provider Name and Address Organization Details Recorded Time 90956 shellfish derived food,medi cation respirato ry distress moderate Not available 06/21/2014 59864 UNK Not Available Not Available Not Available [...] ular route for 90 days. 08/31 completed [facility]# [id number] -1 Not Available Not Available Not Available June FE 04/19 (28) 1 mg-20 mcg (21)/75 [...] completed Not Available Not Available Not Available June Fe 24 1 mg-20 mcg (24)/75 mg [...] Details Last Updated DateTime 12/12/2020 167.64 cm 36.8 kg/m2 350023.0 6036 g 104 mm[Hg] 70 mm[Hg] MAGDALENA NEWMAN Attn: Charissa lima,[address] [place], [address], [place] [facility] 16:20:55 Date Recorded Body height Body mass index (BMI) Systolic blood pressure Diastolic blood pressure Provider Name and Address Organization Details Last Updated DateTime 02/05/2021 167.64 cm 34.2 kg/m2 120 mm[Hg] 80 mm[Hg] Geetha Spears [place] [facility] 02/05/2021 11:57:37 Date Recorded Body weight Provider Name an d Address Organization Details Last Updated DateTime 02/05/2021 26118.44942 g Suraj Rachel [facility] 021 13:42:36 Date Recorded Body height Body mass index (BMI) Body weight Body temperature Heart rate Oxygen saturation Oxygen saturation in Arterial blood by Pulse oximetry Systolic blood pressure Diastolic blood pressure Provider Name and Address Organization Details Last Updated DateTime 3 167.64 cm 36.5 kg/m2 000926. 88 g 97.6 [degF] 64 /min 98 % 98 % 124 mm[Hg] 82 mm[Hg] Colette Johnston MA [facility] 3 12:39:28 Date Recorded Body height Body mass index (BMI) Body weight Oxygen saturation Oxygen saturation in Arterial blood by Pulse oximetry Heart rate Systolic blood pressure Diastolic blood pressure Provider Name and Address Organization Details Last Updated DateTime 4 167.64 cm 39.2 kg/m2 356673. 87 g 99 % 99 % 69 /min 158 mm[Hg] 104 mm[Hg] Brandi Hernandez MA [facility] 4 08:58:06 Date Recorded Body height Body mass index (BMI) Body weight Oxygen saturation Oxygen saturation in Arterial blood by Pulse oximetry Heart rate Systolic blood pressure Diastolic blood pressure Provider Name and Address Organization Details Last Updated DateTime 5 167.64 cm 38.1 kg/m2 787237. 8 g 99 % 99 % 72 /min 140 mm[Hg] 80 mm[Hg] Jacquie Sanchez MA [facility] 5 09:54:34 Social History Question Answer Notes LastModified by Organizat ion Details LastModified Time Tobacco Smoking Status Current Some Day Smoker Jacquie Sanchez MA null, [facility] 04/08/2024 09:51:53 Do You Have An Advance [...] Information not available 06/21/2014 Marital Status Single Informatio n not available 06/21/2014 What Was The Date Of Your Most Recent Tobacco Screening? 04/08/2024 Information not available 04/08/2024 How Many Children Do You Have? 3 [email or web address] Information not available 05/14/2017 Performs Monthly Self-breast Exam? No [email or web address] Information not available 05/14/2017 Do You Use Protection During Sex? Usually [email or web address] Information not available 05/14/2017 What Is Your Relationship Status? Single [email or web address] Information not available 05/14/2017 Do You Use [...] How Much Tobacco Do You Smoke? No [email or web address] Information not available 11/24/2014 Smoking Pre- Yes Information not available 06/21/2014 General Stress Level Medium Information not available 06/21/2014 Do You Use Any Illicit Or Recreational Drugs? Yes Beth [email or web address] Information not available 02/16/2024 Do You [...] History Condition Response Coronary Artery Disease N Kidney Cyst N Blood Diseases N Hyperthyroidism N Blood disorders N Blood Transfusion N MRSA N Emphysema N Blood Clots N COPD N Depression N Pneumonia N Premature N Peripheral Arterial Disease N Edema N TIA N Headaches/Migraines Y [...] N Parkinson's Disease N Thyroid Problems N Developmental Delay N GI Problems N Anemia N Immune System Disorder N Multiple Sclerosis N Colon Polyps N Heart Attack ([place]) N Diabetes N Cardiomyopathy N Blood Transfusions [...] N Kidney Failure N Ocular trauma N Diverticulitis N Dementia N Sleep Apnea N Mental Problems N [...] Immunizations Vaccine Type Date Status Note Provider Nam e and Address Organization Details Recorded Time HPV, bivalent 03/31/2008 completed Suraj javier null, [place] 05/14/2017 11:53:13 Influenza, high-dose, trivalent, PF 02/07/2014 completed Suraj Rachel null, [place] - [facility] 05/14/2017 11:53:13 Tdap 01/05/2016 completed Not Available [facility] 04/17/2019 02:41:31 Tdap 10/10/2020 completed Jes Joyner MA null, OR - [facility] 10/10/2020 17:18:05 Past Encounters Encounter ID Performer Location Encounter Start Date Encounter Closed Date Diagnosis/Indication Diagnosis SNOMED-CT Code Diagnosis ICD10 Code Diagnosis Note [id number] JONN Matthews (DROP PRESS HAND) [address] [place] [address] [id number] 0 06/21/2014 11:09:04 06/21/2014 12:48:49 Normal 12955133 Bacterial vaginosis [id number] NEGRITA Vo (DROP PRESS HAND) [address] [place] [address] 17178-949 0 07/19/2014 11:14:30 07/20/2014 16:33:52 Normal 57840097 [id number] JONN Matthews (DROP PRESS HAND) [address] [place] [address] [id number] 0 08/16/2014 15:04:13 08/16/2014 16:57:53 Normal 71710703 Acute urin norman tract infection 368734918 Chlamydial infection 737775356 Constipation 92412355 [id number] NEGRITA Vo (DROP PRESS HAND) [address] [place] [address] [id number] 0 10/05/2014 13:58:14 10/05/2014 16:56:58 Normal 77322451 Acute urin norman tract infection 926486988 Venereal d isease screening 554696980 [id number] JONN Montalvo (DROP PRESS HAND) [address] [place] [address] [id number] 0 11/02/2014 15:19:50 11/02/2014 16:44:35 Normal 52427219 Gastroesop hageal reflux disease 327945395 [id number] Suraj Coffey (DROP PRESS HAND) [address] [place] [address] [id number] 0 11/24/2014 15:27:15 11/24/2014 17:17:06 Normal 76697535 Streptococcus carrier [id number] NEGRITA Vo (DROP PRESS HAND) [address] [place] [address] [id number] 0 12/08/2014 15:13:36 12/08/2014 15:46:16 Normal 40198369 Streptococcus carrier 990269285 [id number] Suraj Coffey (DROP PRESS HAND) [address] [place] [address] [id number] 0 12/15/2014 15:12:11 12/15/2014 16:49:02 Normal 79005568 Streptococcus carrier 537771987 Venereal d isease in mother complicating , childbirth AND/OR puerperium 43305195 [id number] Suraj Coffey (DROP PRESS HAND) [address] [place] [address] [id number] 0 12/26/2014 09:45:58 12/26/2014 11:04:23 Normal 17651881 [id number] Suraj Coffey (DROP PRESS HAND) [address] [place] [address] [id number] 0 02/13/2015 14:08:55 02/13/2015 15:28:00 state 05019877 Z39.2 care 32288020 8 Z39.2 [id number] MD Alexx Macario (DROP PRESS HAND) [address] [place] [address] [id number] 0 11/29/2015 10:41:39 11/29/2015 17:01:26 Routine care 575068417 Z34.92 Candidiasis of vagina 72 215010 B37.3 [id number] MD Alexx Macario (DROP PRESS HAND) [address] [place] [address] [id number] 0 01/05/2016 12:11:29 01/09/2016 12:55:08 Routine care 355252819 Z34.92 [id number] MD Alexx Macario (DROP PRESS HAND) [address] [place] [address] 02516-409 0 01/30/2016 15:23:51 01/31/2016 10:57:49 Routine care 610615538 Z34.92 Urinary tr act infectious disease 47989187 N39.0 [id number] Suraj Coffey (DROP PRESS HAND) [address] [place] [address] [id number] 0 02/07/2016 16:07:17 02/08/2016 19:13:55 Routine care 022883406 Z34.93 [id number] MD Alexx Macario (DROP PRESS HAND) [address] [place] [address] [id number] 0 02/19/2016 15:55:51 02/20/2016 15:12:46 Routine care 356868085 Z34.92 [id number] Suraj Coffey (DROP PRESS HAND) [address] [place] [address] 86904-995 0 02/26/2016 12:00:19 02/28/2016 15:14:18 Routine care 830147265 Z34.93 Female sterilization 608 99199 Z30.2 Desires PPTL Streptococcus carrier 17 7371031 Z22.338 Herpes simplex 86369673 B00.9 Venereal d isease in mother complicating , childbirth AND/OR puerperium 19649561 O98.191 [id number] JONN Zavala (DROP PRESS HAND) [address] [place] [address] [id number] 0 07/16/2016 15:48:43 07/18/2016 13:30:29 Family planning surveillance 101684107 Z30.09 Uses depot contraception 424691468 Z30.013 Exposure t o sexually transmissible disorder 353930214 Z20.2 Female sterilization 608 81282 Z30.2 Desires PPTL [id number] JONN Montalvo (DROP PRESS HAND) [address] [place] [address] [id number] 0 10/14/2016 11:19:32 10/18/2016 10:18:01 Uses depot contraception 433535324 Z30.014 [id number] Suraj Coffey (DROP PRESS HAND) [address] [place] [address] [id number] 0 05/14/2017 11:12:33 05/14/2017 12:53:38 Family planning surveillance 024310971 Z30.09 Herpes simplex 76463232 B00.9 Obesity 336180149 E66.9 discussed diet and exercise [id number] Suraj Coffey (DROP PRESS HAND) [address] [place] [address] [id number] 0 08/31/2018 16:00:26 09/02/2018 15:43:59 Gynecologic examination 95846626 Z01.419 Z11.51 Exposure t o sexually transmissible disorder 063448223 Z20.2 Migraine 92846877 G43.90 9 HPV - Nuria n papillomavirus test positive 051330541 R87.619 Bacterial vaginosis 4197 61564 N76.0 Infection by Trichomonas 14849072 A59.9 Candidiasis of vagina 72 888228 B37.3 Dysmenorrhea 834838465 N 94.6 Body mass index 30+ - obesity 689981792 Z68.39 Female sterilization 608 44438 Z30.2 Desires tubal ligation [id number] Suraj Coffey (DROP PRESS HAND) [address] [place] [address] [id number] 0 07/21/2019 10:00:58 07/23/2019 15:14:10 Vaginal discharge 461449909 N89.8 Family lavonne nning surveillance 270102699 Z30.09 [id number] MAGDALENA PAYNE HC (DROP PRESS HAND) [address] [place] [address] [id number] 0 10/10/2020 15:02:26 10/26/2020 12:08:15 Routine care 478913696 Z34.90 transfer of care at 29 weeks from [facility] [place]. Will obtain records. Labs drawn. US ordered. Tdap administer ed. Kick counts discussed. RTC in 2 weeks. Venereal d isease screening 423995614 Z11.3 Routine screening. screening 2437 76174 Z36.9 Pt will RTC this week to complete 1 hour GCT. Sterilizat ion requested 189216989 Z30.2 Pt desires PPBTL. Pelvic and perineal pain 710155556 R10.2 Pt fitted for and provided with maternity belt. Constipation 11798020 K5 9.00 Start daily colace and fiber. Advised to increase water intake and avoid straining. [id number] Suraj Coffey HC (DROP PRESS HAND) [address] [place] [address] [id number] 0 10/24/2020 12:45:38 10/24/2020 21:17:49 Routine care 717822106 Z34.[address] reptococcus carrier 1384750875 103 Z22.330 intrapartu m abx. Genital he rpes simplex type 2 175144129 A60.00 Acute urin norman tract infection 974881176 N39.0 e coli likely screening 2437 21587 Z36.9 Venereal d isease screening 576684913 Z11.3 Venereal d isease in mother complicating , childbirth AND/OR puerperium 84850245 O98.319 Sterilizat ion requested 618448115 Z30.2 Requesting tubal to coincide with induction [id number] Suraj Coffey HC (DROP PRESS HAND) [address] [place] [address] 48129-321 0 11/07/2020 15:03:59 11/14/2020 04:52:13 Bacterial vaginosis 207838351 N76.0 Chlamydial infection 105 938624 A74.9 Genital he rpes simplex type [address] reptococcus carrier 4267525381 103 Z22.330 intrapartu m abx. Herpes simplex 81846932 B00.9 Sterilizat ion requested 871421989 Z30.2 Requesting tubal to coincide with induction Anemia 147777013 D64.9 Routine an tenatal care 776532435 Z34.93 [id number] Suraj Coffey (DROP PRESS HAND) [address] [place] [address] 96138-790 0 11/23/2020 16:28:23 11/28/2020 09:50:34 Routine care 308765003 Z34.93 Genital he rpes simplex type [address] reptococcus carrier 3077649927 103 Z22.330 intrapartu m abx. Acute urin norman tract infection 045914464 N39.0 e coli likely [id number] Suraj Rachel Alexx HC (DROP PRESS HAND) [address] [place] [address] [id number] 0 11/30/2020 12:07:01 12/05/2020 10:27:39 Routine care 430514540 Z34.[address] reptococcus carrier 7646588010 103 Z22.330 intrapartu m abx. Herpes simplex 05778815 B00.9 Sterilizat ion requested 694392363 Z30.2 Requesting tubal to coincide with induction. Consent signed and in chart. Venereal d isease in mother complicating , childbirth AND/OR puerperium 72597907 O98.319 Urinary tr act infectious disease 43359128 N39.0 [id number] Suraj Rachel Alexx HC (DROP PRESS HAND) [address] [place] [address] 15807-029 0 12/06/2020 15:11:22 12/07/2020 10:35:53 Routine care 469616953 Z34.[address] reptococcus carrier 7242564262 103 Z22.330 intrapartu m abx. Herpes simplex 12713941 B00.9 Sterilizat ion requested 619549376 Z30.2 Requesting tubal to coincide with induction. Consent signed and in chart. Venereal d isease in mother complicating , childbirth AND/OR puerperium 09183156 O98.319 Urinary tr act infectious disease 85822245 N39.0 [id number] MAGDALENA PAYNE (DROP PRESS HAND) [address] [place] [address] 83641-101 0 12/12/2020 16:02:30 12/20/2020 08:47:02 Routine care 278568527 Z34.90 MAYELIN at 38 weeks. WTC/WLB reviewed. RTC in [address] Rachel. Herpes simplex 75698374 B00.9 Continue antiviral for suppressio n. Sterilizat ion requested 512627201 Z30.2 Requesting PPBTL. Consent signed and in chart. Trichomona l vaginitis in 172556641 O98.319 Positive 12/06/20. Abx sent yesterday. Advised abstinence until pp period. Partner to be tested/roberto ated. Safe sex practices discussed. [id number] Suraj Coffey (DROP PRESS HAND) [address] [place] [address] [id number] 0 02/05/2021 11:36:40 02/12/2021 11:49:16 care 412414556 Z39.2 on 12/19 with no complicati ons. No complaints today, mom and baby doing well. Post-pregn jefe exercises given. Family lavonne nning surveillance 670052024 Z30.09 Bilateral tubal sterilizat ion desired. Not able to do until March 2021, will provide Xulane in meantime. Sterilizat ion requested 173595475 Z30.2 Bilateral tubal sterilizat ion desired. Will schedule for March 2021. [id number] ROSARIO Florian- [facility] ([facility]) [address] [place] [address] 04/05/2022 12:26:40 04/08/2022 10:28:15 Tuberculosis screening 084163077 Z11.1 lab pending. will tailor treatment accordingl y upon receipt. [id number] ANTHONY COVARRUBIAS (Adult Med) [address] [place] [address] 92198-430 0 02/16/2024 08:42:02 03/02/2024 14:52:33 Depression screening 192402777 Z13.31 PHQ9- {{Negative Positive Mild* Mode rate Sever e}} (6 out of 27)Pt denies any pharmacolo gic treatment, will rescreen at next visit. Mental hea lth screening 108219701 Z13.39 GAD7- {{Negative Positive Mild Moder ate* Sever e}} ( 16 out of 21) Essential hypertension 87999709 I10 BP today: 158/104BP Goal: {{Less than [...] given todayLabs today Generalize d anxiety disorder 83930289 F41.1 Be physically active. Doing 30 minutes of exercise every day is good for your body and mind. Start slowly if you find it difficult to get started. If you already exercise, continue doing so. Plan something nice for yourself every day. Include activities you have enjoyed in the past. Get enough sleep. Eat a balanced diet. If you are not hungry, eat small snacks instead of large meals. Do not drink alcohol, use illegal drugs, or take medication s that your doctor has not prescribed . They may interfere with your treatment. Spend time with family and friends. It may be helpful to talk openly about your depression with people you trust. Take your medication s exactly as prescribed . Don't make important life decisions while you are depressed. Depression can change the way you think. You will be able to make better decisions when you feel better. Think positively . Challenge negative thoughts with statements like I am hopeful ; Things will get better ; and I can ask for the help I need. Write these statements down and read them often, even if you don't believe them yet. Be patient with yourself. It took time for your depression to develop and it will take time for your symptoms to improve. Don't assume too much or be too hard on yourself. Learn everything you can about depression from written and online materials. Check out behavioral health classes to learn more about how to deal with depression . Keep the numbers for these national suicide hotlines: 3-599-273- TALK (7-699-959 -4227) and 2-488-SUIC NANCY (9-331-391 -6530). If you or someone you know talks about suicide or feels hopeless, seek help immediatel y. Pt has daily anxiety interrupti ng daily activities .Will follow up in 6 weeks.Refe rral to given today Gastroesop hageal reflux disease without esophagitis 970273366 K21.9 Pt has upper gastric pains and acid reflux.Pt to call in 14 days to see how her symptoms are responding . Adult heal th examination 628569404 Z00.00 Routine labs today- will contact pt with results [id number] ANTHONY COVARRUBIAS (Adult Med) [address] [place] [address] 16530-428 0 04/08/2024 09:32:08 04/09/2024 15:30:50 Essential hypertension 76393849 I10 BP today: 140/80BP Goal: {{Less than [...] Losartan 25mg daily Generalize d anxiety disorder 08828957 F41.1 Be physically active. Doing 30 minutes of exercise every day is good for your body and mind. Start slowly if you find it difficult to get started. If you already exercise, continue doing so. Plan something nice for yourself every day. Include activities you have enjoyed in the past. Get enough sleep. Eat a balanced diet. If you are not hungry, eat small snacks instead of large meals. Do not drink alcohol, use illegal drugs, or take medication s that your doctor has not prescribed . They may interfere with your treatment. Spend time with family and friends. It may be helpful to talk openly about your depression with people you trust. Take your medication s exactly as prescribed . Don't make important life decisions while you are depressed. Depression can change the way you think. You will be able to make better decisions when you feel better. Think positively . Challenge negative thoughts with statements like I am hopeful ; Things will get better ; and I can ask for the help I need. Write these statements down and read them often, even if you don't believe them yet. Be patient with yourself. It took time for your depression to develop and it will take time for your symptoms to improve. Don't assume too much or be too hard on yourself. Learn everything you can about depression from written and online materials. Check out behavioral health classes to learn more about how to deal with depression . Keep the numbers for these national suicide hotlines: 4-203-649- TALK (2-644-997 -4997) and 2-304-SUIC NANCY (0-892-635 -4878). If you or someone you know talks about suicide or feels hopeless, seek help immediatel y. Pt did not make appt with counseling and states she does not want it at this time.Is taking medication once daily- discussed taking medication BIDRTC 6 weeksC/W hydroxyzin e 25mg BID-TID Depression screening 171 080001 Z13.31 PHQ9- {{Negative * Positive Mild Mode rate Sever e}} (1 out of 27) Mental hea lth screening 502362711 Z13.39 GAD7- {{Negative Positive Mild* Mode rate Sever e}} (8 out of 21) Obesity 787156974 E66.81 2 BMI 38.1 Health Concerns Section Related Observation LastModified by Organization Detai ls LastModified Time None Recorded Concern Status LastModified by Organization Details LastModified Time None Recorded Advance Directives Directive N: Payers Encounter Date Sequence Insurance Name Policy Number Policy Pinzon Covered Member ID Pinzon Member ID Guarantor Name 12/12/2020 1 [facility] - DOS ON OR AFTER 20 (MEDICAID REPLACEMENT - HMO) Scott Henderson [id number] Jamisha Santiago 02/05/2021 1 [facility] - DOS ON OR AFTER 20 (MEDICAID REPLACEMENT - HMO) Jamisha Santiago [id number] Ciriloisha Santiago 04/05/2022 1 [facility] - DOS ON OR AFTER 20 (MEDICAID REPLACEMENT - HMO) Jamisha Santiago [id number] Ciriloisha Santiago 02/16/2024 1 [facility] - DOS ON OR AFTER 20 (MEDICAID REPLACEMENT - HMO) Ciriloisha Santiago [id number] Ciriloisha Santiago 04/08/2024 1 [facility] - DOS ON OR AFTER 20 (MEDICAID REPLACEMENT - HMO) Scott Santiago [id number] Scott Santiago Notes Date Note Type Note Provider Name and Address Organization Details Recorded Time 12/12/2020 text/html 25yo with history of GBS, HSV, conrado, abnormal pap, presenting for MAYELIN at 38w. She was transferred to our care [place] [facility] [place] at 29w. She has no concerns today. She reports irregular contractions. Denies LOF, bleeding, abnormal discharge. +FM. MAGDALENA PAYNE Attn: [address] [place], [address], [facility] 12/20/2020 07:31:39 02/05/2021 text/html VisitReported bypatient.Onset/[facility] ing:date [...] today. [facility] Desires bilateral tubal sterilization. Suraj ba, [place] - [facility] 02/05/2021 13:52:22 04/05/2022 text/html Pt presents to clinic requesting an TB screening. Pt denies nausea, vomiting, fever, chills, rash, cough, CP, SOb, MANCINI, diarrhea, constipation and dysuria. Dodie Espinoza, [facility]- Attn: [address] [facility], [place], [address], [place] - [facility] 04/05/2022 12:48:19 02/16/2024 text/html A [...] N/V/D. MARICEL SPRAGUE PA-C Attn: [address] [facility], [place], [address], [facility] 02/16/2024 09:51:15 04/08/2024 text/html Hypertension [...] states she called to get scheduled at [facility] but they told her to call every morning to be scheduled and she did not feel like doing that, she does not think she wants to do that at this time and wants to just do medication for now. MARICEL SPRAGUE PA-C Attn: [address] [facility], [place], [address], [facility] 04/08/2024 10:27:36 OBGyn Episode Ob Episode Information Episode Created Date Number of Fetuses Patient Bloodtype Patient rh Status Prepregnancy Weight lbs Domestic Partner Domestic Partner Phone Father Name Technical Services Librarian Status 10/10/19 21 1 B Positive [place] CLOSED Fetus Data First Name Last Name Admitted to NICU Weight (g) Sex Living Outcome Pediatric Complications Fetus ID Race Codes Race Delivery Type Isauro Collins e Cherry ny false 3572.03 7 F true Full Term None 04032 2054-5 Black or Afric an Ameri can Standard Vaginal Delivery Problems Problem Notes Baby girl, name Lilly, bottle feeding, natural vaginal delivery, undecided rivet tosser peds providers here provided, PPBC BTL Problem Name Start Date End Date Resolution Snomed Code Not e Group B Streptococcus carrier 10/19/2020 0106615082152 Urogenital infection by Trichomonas vaginalis 12/11/2020 58874769 Genital herpes simplex type 2 10/19/2020 841650123 Anemia 10/19/2020 498762188 Urinary tract infectious disease 11/30/2020 60011373 Sterilization requested 10/10/2020 81516 6000 pptl Large for gestation age fetus 909220224 Oligohydramnios 87457752 opal ction of labor Nabeel Calculation Initial [...] 08/03/19 21 19 [email or web address] 11/07/2020 021 1 Pre- Flowsheet Flowsheet Date 10/10/2020 Brewster Score Blood Edema Fundus Height Fundus Units Glucose Ketones Leukocytes Nitrite Labor Signs Protein Cervic Dilation Cervic Effacement Cervic Station trace none 29 wks none negative none trace Type Weight in lbs Pre/Post Dialysis Refused With clothes 214.917798952512 BP Diastolic BP Location Tested BP Systolic BP Type 66 108 sitting Fetus Heart Rate Present A 144 Present Fetus Movement A Yes Comments transfer of care at 29 weeks from [facility] [place]. Will obtain records. Labs drawn. US ordered. Tdap administered. Kick counts discussed. Flowsheet Date 10/24/2020 Brewster Score Blood Edema Fundus Height Fundus Units Glucose Ketones Leukocytes Nitrite Labor Signs Protein Cervic Dilation Cervic Effacement Cervic Station trace none 31 wks none negative none neg Type Weight in lbs Pre/Post Dialysis Refused With clothes 217.596005289474 BP Diastolic BP Location Tested BP Systolic [...] Weight in lbs Pre/Post Dialysis Refused Weight 219.351551436145 BP Diastolic BP Location Tested BP Systolic [...] in lbs Pre/Post Dialysis Refused With clothes 222.31065932369 BP Diastolic BP Location Tested BP Systolic BP Type 76 116 sitting Fetus Heart Rate Present A 145 Present Fetus Movement A Yes Comments uti rx see weekly/36w labs n ext Flowsheet Date 11/30/2020 Brewster Score Blood Edema Fundus Height Fundus Units Glucose Ketones Leukocytes Nitrite Labor Signs Protein Cervic Dilation Cervic Effacement Cervic Station neg none 36 wks none negative [place] Gupta neg 0cm 80% 0 Type Weight in lbs Pre/Post Dialysis Refused With clothes 224.169615794581 BP Diastolic BP Location Tested BP Systolic [...] in lbs Pre/Post Dialysis Refused With clothes 220.818104740875 BP Diastolic BP Location Tested BP Systolic [...] in lbs Pre/Post Dialysis Refused With clothes 228.703758115500 BP Diastolic BP Location Tested BP Systolic [...] in lbs Pre/Post Dialysis Refused With clothes 212.30860939642 BP Diastolic BP Location Tested BP Systolic [...] Estim ated Date of Delivery false Thalassemia (Sammarinese, Estonian, Mediterranean, Or Background): MCV < 80 false Neural Tube Defect (Meningomyelocele, Spina Bifi da, Or Anencephaly) false Congenital Heart Defect false Down Syndrome false Jorge-Sachs (eg, Mormonism, Cajun, Ukrainian-Palestinian) f alse Андрей Disease false Sickle Cell Disease Or Trait () false Hemophilia Or Other Blood Disorders false Muscular Dystrophy false Cystic Fibrosis false Kaufman's Chorea false Mental Retardation/Autism false If Yes, [...] Domestic Partner Domestic Partner Phone Father Name Technical Services Librarian Status 06/22/19 15 1 B Positive 197 [place] CLOSED Fetus Data First Name Last Name Admitted to NICU Weight (g) Sex Living Outcome Pediatric Complications Fetus ID Race Codes Race Delivery Type Kory Raymond an true 3175.14 4 M true Full Term Baby swolled amiotic fluids 87920 8-6 Afric an Ameri can Vaginal Problems Problem Notes Problem Name Start Date End Date Resolution Snomed Code Not e Bacterial vaginosis 385060378 Acute urinary tract infection 288110328 Candidiasis 05824505 Blood glucose outside reference range 536844866 Chlamydial infection 752279560 Constipation 62413167 Gastroesophageal reflux disease 604590907 Gonorrhea 47856753 Venereal disease in mother complicating , childbirth AND/OR puerperium 11385823 state 41388403 care 919219838 HPV - Human papillomavirus t est positive 638819306 Nabeel Calculation Initial Nabeel Date Initial Exam Date Initial Exam Provider Initial Ultrasound Date Last Menstrual Period Date Ultra Sound Weeks Gestation 01/03/2015 06/21/2014 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 06/17/2014 03/23/2014 11 Eighteen To Twenty Week [...] Type Weight in lbs Pre/Post Dialysis Refused 197.339147511767 BP Diastolic BP Location Tested BP Systolic [...] Type Weight in lbs Pre/Post Dialysis Refused 187.858976656904 BP Diastolic BP Location Tested BP Systolic [...] Type Weight in lbs Pre/Post Dialysis Refused 183.369214441120 BP Diastolic BP Location Tested BP Systolic [...] Type Weight in lbs Pre/Post Dialysis Refused 193.10595397915 BP Diastolic BP Location Tested BP Systolic BP Type 62 112 sitting Fetus Heart Rate Present A 138 Present Fetus Movement A Yes Comments Flowsheet Date 11/02/2014 Brewster Score Blood Edema Fundus Height Fundus Units Glucose Ketones Leukocytes Nitrite Labor Signs Protein Cervic Dilation Cervic Effacement Cervic Station neg none 31 wks none negative none neg Type Weight in lbs Pre/Post Dialysis Refused 197.753411215874 BP Diastolic BP Location Tested BP Systolic [...] Type Weight in lbs Pre/Post Dialysis Refused 199.196868422139 BP Diastolic BP Location Tested BP Systolic BP Type 62 114 sitting Fetus Heart Rate Present A 144 Present Fetus Movement A Yes Comments gisellaycean male, circ, breast, ncb, [place], [address] next, [facility] 12/29/14, ppbc DMPA Flowsheet Date 12/08/2014 Brewster Score Blood Edema Fundus Height Fundus Units Glucose Ketones Leukocytes Nitrite Labor Signs Protein Cervic Dilation Cervic Effacement Cervic Station neg none 36 cm none negative Amadou Gupta 1+ 0cm 0% -3 Type Weight in lbs Pre/Post Dialysis Refused 203.32441359719 BP Diastolic BP Location Tested BP Systolic [...] Type Weight in lbs Pre/Post Dialysis Refused 205.823033640017 BP Diastolic BP Location Tested BP Systolic [...] Type Weight in lbs Pre/Post Dialysis Refused 206.406811456070 BP Diastolic BP Location Tested BP Systolic BP Type 76 112 sitting Fetus Heart Rate Present A 130 Present Fetus Movement A Yes Comments MIL in am Flowsheet Date 02/13/2015 Brewster Score Blood Edema Fundus Height Fundus Units Glucose Ketones Leukocytes Nitrite Labor Signs Protein Cervic Dilation Cervic Effacement Cervic Station Type Weight in lbs Pre/Post Dialysis Refused 193.25302166842 BP Diastolic BP Location Tested BP Systolic [...] Estim ated Date of Delivery false Thalassemia (Sammarinese, Estonian, Mediterranean, Or Background): MCV < 80 false Neural Tube Defect (Meningomyelocele, Spina Bifi da, Or Anencephaly) false Congenital Heart Defect false Down Syndrome false Jorge-Sachs (eg, Mormonism, Cajun, Ukrainian-Palestinian) f alse Андрей Disease false Sickle Cell Disease Or Trait () false Hemophilia Or Other Blood Disorders false Muscular Dystrophy false Cystic Fibrosis false Kaufman's Chorea false Mental Retardation/Autism false If Yes, [...] ed By 12/18/2014 Anticipated course of care [facility] 12/18/2014 Alcohol [facility] 12/18/2014 Intimate partner violence [facility] 12/18/2014 Environmental/work hazards [facility] 12/18/2014 [facility] 12/18/2014 Nutrition counseling ; special diet; dietary precautions (mercury, listeriosis) [facility] 12/18/2014 Childbirth classes/hospital facilities [facility] 12/18/2014 HIV and other routine tests [facility] 12/18/2014 Risk factors identif ied by history [facility] 12/18/2014 Weight gain counseling [facility] 12/18/2014 Exercise [facility] 12/18/2014 Teratogens [facility] 12/18/2014 Use of any medicatio ns (including supplements, vitamins, herbs, or OTC drugs) [facility] 12/18/2014 [facility] 12/18/2014 Sexual activity [facility] 12/18/2014 Tobacco/smoking cess ation counseling (ask, advise, assess, assist, and arrange) [facility] 12/18/2014 Illicit/recreational drugs [facility] 12/18/2014 Dental care [facility] 12/18/2014 Travel [facility] 12/18/2014 Seat belt use [facility] 12/18/2014 Indications for ultrasonography [facility] 12/18/2014 Avoidance of saunas or hot tubs [facility] 12/18/2014 Toxoplasmosis precautions (cats/raw meat) [facility] Second Trimester Discussed Date Discussion Item Discussion Note Discuss ed By 12/18/2014 Selecting a care provider [facility]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
--- NOTE | 2024-07-08 15:36 | ECG_ITS ---
Test Date: 2024-07-08 15:47:44 Measurements Intervals [place] Rate: 103 P: 32 MI: 146 QRS: 15 QRSD: 92 T: -45 QT: 327 QTc: 429 Interpretive Statements SINUS TACHYCARDIA VOLTAGE CRITERIA FOR LVH MINIMAL Q WAVES- HIGH LATERAL LEADS ST DEVIATION AND MODERATE T-WAVE ABNORMALITY, CONSIDER ANTEROLATERAL ISCHEMIA ST DEVIATION AND MODERATE T-WAVE ABNORMALITY, CONSIDER INFERIOR ISCHEMIA ABNORMAL ECG No previous ECG available for comparison Electronically Signed On 07-08-2024 15:49:40 CDT by Mik Ramirez D.O.
== END 2024-07-08 12:56 | disposition home or self-care (01) ==
PROVIDERS: Visit Provider Surgery
DX: I10 Essential (primary) hypertension (principal); Z01.818 Encounter for other preprocedural examination; R94.31 Abnormal electrocardiogram [ECG] [EKG]
CPT/HCPCS: 93005

== ENCOUNTER 2024-07-08 15:59 | Emergency (ER) | payer OTHER, SELFPAY ==
--- OUTSIDE RECORDS SUMMARY | 2024-07-08 16:03 | XMS_ITS | CONTINUITY OF CARE DOCUMENT ---
Author Name omkar espitia Address Unknown Organization [facility] Address [address] [place] [address] Phone [phone] Care Team Providers Care Account General Manager Name Role Phone Ambrosio SLAUGHTER, Isela Unavailable CINTHIA SLAUGHTER, TA Vera Unavailable INSURANCE PROVIDERS Payer name Policy type / Coverage type [place] red green party ID JANA MEDICAID (2) Medicaid [id number]
--- OUTSIDE RECORDS SUMMARY | 2024-07-08 16:03 | XMS_ITS | Clinical Summary ---
Author Organization [facility] Address [address] [place] [address] Care Team Providers Care Glove Cleaner Name Role Phone Unavailable Primary Care Provider Unavailabl e Source Comments [facility],non-owned Affiliates and Associated Physician Practices is amultiple site organization consisting of ambulatory clinics and hospital sitesin [place], [place], [place] and [place]. This disclosure is being madepursuant to the Care Everywhere program and may not contain all information available regarding this patient. Last updated 17.[employer] Allergies No known active allergies Medications * [...] this topic Scott Henderson Personal/Family Self 1995 [address] [place] [address]
--- NOTE | 2024-07-08 16:24 | PC.NURSE ---
Pt called for triage, no response
--- NOTE | 2024-07-08 16:48 | PC.NURSE ---
Pt called for triage for a second time, no response
--- NOTE | 2024-07-08 17:16 | PC.NURSE ---
Pt called for triage for a third time, no response
--- OUTSIDE RECORDS SUMMARY | 2024-07-08 17:51 | XMS_ITS | Clinical Summary ---
Author Organization [facility] Address [address] [place] [address] Care Team Providers Care Lead Network Architect Name Role Phone Unavailable Primary Care Provider Unavailabl e Source Comments [facility],non-owned Affiliates and Associated Physician Practices is amultiple site organization consisting of ambulatory clinics and hospital sitesin [place], [place], [place] and [place]. This disclosure is being madepursuant to the Care Everywhere program and may not contain all information available regarding this patient. Last updated 17.[employer] [facility] Allergies No known active allergies Medications * [...] this topic Scott Henderson Personal/Family Self 1995 [address] [place] [address]
--- OUTSIDE RECORDS SUMMARY | 2024-07-08 17:51 | XMS_ITS | CONTINUITY OF CARE DOCUMENT ---
Author Name omkar espitia Address Unknown Organization [facility] Address [address] [place] [address] Phone [phone] Care Team Providers Care Intake Specialist Name Role Phone Ambrosio SLAUGHTER, Isela Unavailable CINTHIA SLAUGHTER, TA Vera Unavailable [phone] INSURANCE PROVIDERS Payer name Policy type / Coverage type [place] red alliance party ID JANA MEDICAID (2) Medicaid [id number]
== END 2024-07-08 16:24 | disposition left against medical advice (07) ==
DX: Z53.21 Procedure and treatment not carried out due to patient leaving prior to being seen by health care provider (principal)
CPT/HCPCS: 99199